=== PATIENT | male | born 1985 | race Caucasian/White ===

== ENCOUNTER 2022-10-21 13:34 | Outpatient (OUT) | payer OTHER, SELFPAY ==
--- NOTE | 2022-10-21 13:45 | CT_ITS ---
[address] [address] Patient Name: JUVENCIO SPARKS MRN: [id number] date: 1985 Sex: M Assigned Patient Location: CT Current Patient Location: CT Accession/Order Number: [id number] Exam Date: 10/21/2022 14:00 Report Date: 10/22/2022 07:28 At the request of: SASHA WILKES Procedure: CT chest w con EXAMINATION: CT chest w con HISTORY: Abnormal Chest CT R93.89, Rib Lesion M89.9 COMPARISON: 06/27/2022 TECHNIQUE: Multi-planar CT images were created with IV contrast. Axial, Coronal, and Sagittal images. Dose reduction techniques were achieved by using automated exposure control and/or adjustment of mA and/or kV according to patient size and/or use of iterative reconstruction technique. FINDINGS: LUNGS: No visible pulmonary disease. PLEURA: No mass, effusion, or pneumothorax. VASCULATURE: Normal postcontrast opacification of the central pulmonary arterial tree with no filling defects JEANNETTE: No mass or adenopathy. MEDIASTINUM: Soft tissue attenuation in the anterior mediastinum, residual thymic tissue is favored CARDIAC: No enlargement, pericardial thickening, or significant calcification. AORTA: No aneurysm or dissection. CHEST WALL: No mass or axillary adenopathy. BONES: Stable focal sclerosis left lateral seventh rib, axial image 66 LIMITED ABDOMEN: No suspicious findings. Limited images of the upper abdomen. OTHER: Negative. IMPRESSION: Interval resolution of parenchymal infiltrates Stable sclerotic lesion left lateral seventh rib with no cortical erosion or associated mass. I favor a benign lesion such as a enostosis or remote healed injury Electronically authenticated by: QUIANA GRANADOS Date: 10/22/2022 07:28
== END 2022-10-21 13:35 ==
LOC: CT 13:37
PROVIDERS: PCP Family Medicine; Visit Provider Family Medicine
DX: R93.89 Abnormal findings on diagnostic imaging of other specified body structures (principal); M89.9 Disorder of bone, unspecified
CPT/HCPCS: 71260; Q9967

== ENCOUNTER 2023-04-24 11:01 | Emergency (ER) | payer OTHER, SELFPAY ==
[2023-04-24] VITALS (16 sets, daily range): BP systolic 129; BP diastolic 97; PULSE 93–111; RESP 17–26; TEMP 36.7; O2SAT 96; BMI 30.4
--- NOTE | 2023-04-24 11:16 | XR_ITS ---
The [address] [address] Patient Name: JUVENCIO SPARKS MRN: [id number] date: 1985 Sex: M Assigned Patient Location: ER Current Patient Location: ER Accession/Order Number: [id number] Exam Date: 04/24/2023 11:25 Report Date: 04/24/2023 12:43 At the request of: PAYAM HOOD Procedure: XR chest 1V CLINICAL HISTORY: SOB, cough. EXAMINATION: Portable AP upright chest: 04/24/2023 at 1130 hours. COMPARISON: PA and lateral chest: 06/28/2022. FINDINGS: There are some artifacts from overlying monitoring leads. The visualized soft tissues are normal. The trachea is midline. The aorta demonstrates normal contour. The heart size remains normal. There are no focal infiltrates, pleural effusions, pulmonary edema or pneumothorax. XR/XR chest 1V IMPRESSION: No acute cardiopulmonary disease. Electronically authenticated by: KATHRYN MERRILL Date: 04/24/2023 12:43
--- NOTE | 2023-04-24 11:16 | ECG_ITS ---
The [facility] Test Date: 2023-04-24 Pat Name: JUVENCIO SPARKS Department: Room: - Gender: Male [employer]: : 1985 Requested By: SASHA WILKES Order Number: [id number] Reading MD: FRANCISCO STEARNS Measurements Intervals [place] Rate: 94 P: 47 NC: 110 QRS: -14 QRSD: 80 T: 26 QT: 314 QTc: 366 Interpretive Statements 1100 Sinus rhythm 2210 Short NC interval 4068 Nonspecific [place] abnormality 9150 abnormal ECG No previous ECG available for comparison Electronically Signed On 04-24-2023 16:57:07 EST by FRANCISCO STEARNS
--- NOTE | 2023-04-24 11:17 | ED_ITS ---
HPI - URI/Sore Throat General Chief Complaint: Upper Respiratory Infection Stated Complaint: SHORTNESS OF BREATH Time Seen by Provider: 04/24/23 11:06 Source: patient History of Present Illness HPI Narrative: 37-year-old male presents for a one-month history of trouble breathing. He was seen at an urgent care a week ago and at that time was put on what sounds like Augmentin and a steroid. He still has a few days of the Augmentin left but doesn't feel any better and he feels worse. He's been coughing a great deal. He reports that in June of this year he had pneumonia that showed on a CAT scan and ended up with a bronchoscopy. He felt worse whenever he was given an albuterol treatment and doesn't want another albuterol treatment. Related Data Home Medications Medication Instructions Recorded Confirmed amoxicillin 875 mg-potassium 1 tab PO Q12H 04/24/23 04/24/23 clavulanate 125 mg tablet fluticasone propionate 50 intranasal 04/24/23 mcg/actuation nasal spray,suspension prednisone 20 mg tablet 20 mg PO Q12H 04/24/23 04/24/23 Previous Rx's Medication Instructions Recorded doxycycline hyclate 100 mg capsule 100 mg PO BID 10 days #20 caps 04/24/23 prednisone 10 mg tablet See Rx Instructions .Route 04/24/23 .COMPLEX #30 tabs Allergies Allergy/AdvReac Type Severity Reaction Status Date / Time No Known Drug Allergies Allergy Verified 04/24/23 11:07 Review of Systems ROS Narrative A ten point review of systems is negative except as noted above. Exam Narrative Exam Narrative: Nurses note and vital signs reviewed and patient is not hypoxic. General: The patient appears well and in no apparent distress. Patient is resting comfortably on cart. Skin: Warm, dry, no pallor noted. There is no rash noted. Head: Normocephalic, atraumatic Eye: Normal conjunctiva, no drainage Ears, Nose, Mouth, and Throat: oral mucosa is moist. Nares patent. Cardiovascular: Regular Rate and Rhythm Respiratory: bilateral rhonchi present Back: non-tender GI: often nontender Musculoskeletal: The patient has no evidence of calf tenderness, no pitting edema, symmetrical pulses noted bilaterally Neurological: A&O, normal speech Psychiatric: Cooperative Constitutional Vital Signs, click to edit/add: Last Vital Signs Temp 98.1 F 04/24/23 11:03 Pulse 111 H 04/24/23 13:50 Resp 22 04/24/23 13:50 BP 129/97 H 04/24/23 11:03 Pulse Ox 96 04/24/23 11:03 O2 Del Method Room Air 04/24/23 11:03 Course Vital Signs Vital signs: Vital Signs Temperature 98.1 F 04/24/23 11:03 Pulse Rate 97 H 04/24/23 11:03 Respiratory Rate 18 04/24/23 11:03 Blood Pressure 129/97 H 04/24/23 11:03 Pulse Oximetry 96 04/24/23 11:03 Oxygen Delivery Method Room Air 04/24/23 11:03 Temperature 98.1 F 04/24/23 11:03 Pulse Rate 111 H 04/24/23 13:50 Respiratory Rate 22 04/24/23 13:50 Blood Pressure 129/97 H 04/24/23 11:03 Pulse Oximetry 96 04/24/23 11:03 Oxygen Delivery Method Room Air 04/24/23 11:03 MDM - URI/Sore Throat MDM Narrative Medical decision making narrative: extensive workup including CAT scan of the chest ears negative. He'll be discharged home and was prescribed doxycycline. Treatment diagnosis and follow- up were discussed with the patient. Differential Diagnosis Differential diagnosis: Likely upper respiratory infection, viral infection, bronchitis, influenza and other (Covid, pneumonia) Lab Data Attestation: I reviewed the patient's lab results. Labs: Lab Results 04/24/23 04/24/23 Range/Units 11:27 11:32 WBC 6.8 (4.0-11.0) 10^3/uL RBC 5.16 (4.70-6.10) 10^6/uL Hgb 16.8 (14.0-18.0) g/dL Hct 48.4 (42.0-54.0) % MCV 93.8 (80.0-94.0) fL MCH 32.6 (25.9-34.0) pg MCHC 34.7 (29.9-35.2) g/dL RDW 11.9 (11.0-15.0) % Plt Count 210 (150-450) 10^3/uL MPV 9.7 (9.5-13.5) fL Neut % (Auto) 62.8 (43.0-75.0) % Lymph % (Auto) 18.8 L (20.5-60.0) % [place] % (Auto) 9.9 (1.7-12.0) % Eos % (Auto) 6.4 (0.9-7.0) % Baso % (Auto) 0.9 (0.2-2.0) % Neut # (Auto) 4.2 (1.4-6.5) 10^3/uL Lymph # (Auto) 1.3 (1.2-3.8) 10^3/uL [place] # (Auto) 0.7 (0.3-0.8) 10^3/uL Eos # (Auto) 0.4 (0.0-0.7) 10^3/uL Baso # (Auto) 0.1 (0.0-0.1) 10^3/uL Abs Immat Gran (auto) 0.08 H (0.00-0.03) 10^3/uL Imm/Tot Granulo (auto) 1.2 H (0.0-0.5) % Sodium 139 (136-145) mmol/L Potassium 4.1 (3.5-5.1) mmol/L Chloride 102 (98-107) mmol/L Carbon Dioxide 28.3 (21.0-32.0) mmol/L Anion Gap 12.8 BUN 12.0 (7.0-18.0) mg/dL Creatinine 1.21 (0.70-1.30) mg/dL Est GFR ( Amer) >60 (>=60) Est GFR (Non-Af Amer) >60 (>=60) BUN/Creatinine Ratio 9.9 Glucose 98 (74-106) mg/dL Lactate 0.8 (0.4-2.0) mmol/L Calcium 8.5 (8.5-10.1) mg/dL SARS-CoV-2 (PCR) Negative (NEGATIVE) Influenza Type A Ag Negative Influenza Type B Ag Negative Imaging Data chest x-ray and CAT scan chest: Radiologist's impression: Procedure: CT chest w con EXAMINATION: CT chest w con, 04/24/2023 12:55 PM EST HISTORY: cough, sob, hx of bilateral pneumonia COMPARISON: 10/21/2022 TECHNIQUE: CT of the chest was performed following administration of IV contrast. Dose reduction techniques were achieved by using automated exposure control and/or adjustment of mA and/or kV according to patient size and/or use of iterative reconstruction technique. FINDINGS: Medical devices: None. Thyroid: Normal. Vasculature: Aorta and main pulmonary artery diameters are within normal range. Heart: Normal. No pericardial effusion. Mediastinum: Normal. Airways: Normal. Lung parenchyma and pleura: Normal. Lymph nodes: No supraclavicular, axillary, mediastinal, or hilar lymphadenopathy. Chest wall: Normal. Musculoskeletal: No acute findings Upper abdomen: No acute findings in the visualized upper abdomen. IMPRESSION: 1. No acute findings in the chest. Electronically authenticated by: BETSY MANUEL Date: 04/24/2023 13:51 Procedure: XR chest 1V CLINICAL HISTORY: SOB, cough. EXAMINATION: Portable AP upright chest: 04/24/2023 at 1130 hours. COMPARISON: PA and lateral chest: 06/28/2022. FINDINGS: There are some artifacts from overlying monitoring leads. The visualized soft tissues are normal. The trachea is midline. The aorta demonstrates normal contour. The heart size remains normal. There are no focal infiltrates, pleural effusions, pulmonary edema or pneumothorax. IMPRESSION: No acute cardiopulmonary disease. Electronically authenticated by: KATHRYN MERRILL Date: 04/24/2023 ECG Data Attestation: I personally reviewed and interpreted this ECG as follows: (EKG on my interpretation shows normal sinus rhythm without acute change) Discharge Plan Discharge Chief Complaint: Upper Respiratory Infection Clinical Impression: Upper respiratory infection Patient Disposition: Home, Self-Care Time of Disposition Decision: 14:04 Condition: Good Mode of Transportation: Private Vehicle Prescriptions / Home Meds: New prednisone 10 mg tablet See Rx Instructions .ROUTE .COMPLEX Qty: 30 0RF Rx Instructions: 4 by mouth daily for three days then 3 by mouth daily for three days then 2 by mouth daily for three days then 1 by mouth daily for three days doxycycline hyclate 100 mg capsule 100 mg PO BID 10 Days Qty: 20 0RF No Action amoxicillin-pot clavulanate 875-125 mg tablet 1 tab PO Q12H prednisone 20 mg tablet 20 mg PO Q12H fluticasone propionate 50 mcg/actuation spray,suspension INTRANASAL Instructions: Upper Respiratory Infection (ED) Stand Alone Forms: Portal Instructions Referrals: Christiano De La Cruz MD [Primary Care Provider] - 1 week
[2023-04-24] MEDS: METHYLPREDNISOLONE SOD SUCC PF 125 MG/2 ML VIAL IVP (11:39)
[2023-04-24 11:46] LABS: Basophils Absolute Auto 0.1 10^3/uL (0.0-0.1); Basophils Percent Auto 0.9 % (0.2-2.0); Eosinophils Absolute Auto 0.4 10^3/uL (0.0-0.7); Eosinophils Percent Auto 6.4 % (0.9-7.0); Hematocrit 48.4 % (42.0-54.0); Hemoglobin 16.8 g/dL (14.0-18.0); Immature Granulocytes Abs Auto 0.08 10^3/uL (0.00-0.03); Immature Granulocytes Pct Auto 1.2 % (0.0-0.5); Lymphocytes Absolute Auto 1.3 10^3/uL (1.2-3.8); Lymphocytes Percent Auto 18.8 % (20.5-60.0); Mean Corpuscular HGB Conc 34.7 g/dL (29.9-35.2); Mean Corpuscular Hemoglobin 32.6 pg (25.9-34.0); Mean Corpuscular Volume 93.8 fL (80.0-94.0); Mean Platelet Volume 9.7 fL (9.5-13.5); Monocytes Absolute Auto 0.7 10^3/uL (0.3-0.8); Monocytes Percent Auto 9.9 % (1.7-12.0); Neutrophils Absolute Auto 4.2 10^3/uL (1.4-6.5); Neutrophils Percent Auto 62.8 % (43.0-75.0); Platelet Count 210 10^3/uL (150-450); Red Blood Count 5.16 10^6/uL (4.70-6.10); Red Cell Distribution Width 11.9 % (11.0-15.0); White Blood Count 6.8 10^3/uL (4.0-11.0)
[2023-04-24 11:48] LABS: Anion Gap 12.8; BUN Creatinine Ratio 9.9; Calcium 8.5 mg/dL (8.5-10.1); Carbon Dioxide 28.3 mmol/L (21.0-32.0); Chloride 102 mmol/L (98-107); Estimated GFR (African America >60 (>=60); Estimated GFR (Non-African Ame >60 (>=60); Glucose 98 mg/dL (74-106); Potassium 4.1 mmol/L (3.5-5.1); Sodium 139 mmol/L (136-145)
[2023-04-24 11:54] LABS: Influenza Virus A Antigen Negative; Influenza Virus B Antigen Negative; Internal Control Within Normal Limits
[2023-04-24 11:55] LABS: SARS-CoV-2 Ag NEGATIVE (NEGATIVE)
--- NOTE | 2023-04-24 12:14 | CT_ITS ---
The [address] [address] Patient Name: JUVENCIO SPARKS MRN: [id number] date: 1985 Sex: M Assigned Patient Location: ER Current Patient Location: ER Accession/Order Number: [id number] Exam Date: 04/24/2023 12:55 Report Date: 04/24/2023 13:51 At the request of: PAYAM HOOD Procedure: CT chest w con EXAMINATION: CT chest w con, 04/24/2023 12:55 PM EST HISTORY: cough, sob, hx of bilateral pneumonia COMPARISON: 10/21/2022 TECHNIQUE: CT of the chest was performed following administration of IV contrast. Dose reduction techniques were achieved by using automated exposure control and/or adjustment of mA and/or kV according to patient size and/or use of iterative reconstruction technique. FINDINGS: Medical devices: None. Thyroid: Normal. Vasculature: Aorta and main pulmonary artery diameters are within normal range. Heart: Normal. No pericardial effusion. Mediastinum: Normal. Airways: Normal. Lung parenchyma and pleura: Normal. Lymph nodes: No supraclavicular, axillary, mediastinal, or hilar lymphadenopathy. Chest wall: Normal. Musculoskeletal: No acute findings Upper abdomen: No acute findings in the visualized upper abdomen. CT/CT chest w con IMPRESSION: 1. No acute findings in the chest. Electronically authenticated by: BETSY MANUEL Date: 04/24/2023 13:51
[2023-04-24 13:14] LABS: Lactate/Lactic Acid 0.8 mmol/L (0.4-2.0)
[2023-04-24 15:59] LABS: SARS-CoV-2 NAA NOT DETECTED (NOT DETECTE)
== END 2023-04-24 14:15 | disposition home or self-care (01) ==
PROVIDERS: Emergency Provider Emergency Medicine; PCP Family Medicine
DX: J06.9 Acute upper respiratory infection, unspecified (principal); Z79.899 Other long term (current) drug therapy; Z87.01 Personal history of pneumonia (recurrent); Z20.822 Contact with and (suspected) exposure to COVID-19
CPT/HCPCS: 36415; 71045; 71260; 80048; 83605; 85025; 87635; 87804; 87811; 93005; 96374; 99285; J2930; Q9967

== ENCOUNTER 2023-06-22 08:10 | Outpatient (OUT) | payer OTHER, SELFPAY ==
--- OUTSIDE RECORDS SUMMARY | 2023-06-22 08:15 | XMS_ITS | CCD ---
Author Name Unknown Address [facility] [address] [place] [address] Organization [facility] Care Team Providers Care Driller Operator Name Role Phone DioniJoseCharmaine Unavailable Peyton Stone Unavailable Carri Cano Unavailable Asaad, Imad Unavailable SAMSA ., LEWIS Procedure Practitioner Unavailab le IVIS ., LICO Attending Unavailable IVIS ., LICO Admitting Unavailable REQUEST, DR NONE LISTED Primary Care Unavailelgin GRANADOS, DR QUIANA Lawler Consulting Unavailable TATUM ULLOA Consulting Unavailable LEWIS RIVERA Consulting Unavailable TORITO LANCASTER Consulting Unavailable MAEVE HALL Consulting Unavailable SEGUNDO AMBRIZ Consulting UnavailRENARD Au Consulting Unavailable ZEESHAN TUCKER Consulting Unavailable SISTER, SANDI Consulting Unavailable IVIS ., LICO Consulting Unavailable IVIS II, KIMBERLI Consulting Unavailable Asaad, Imad Attending Unavailable Asaad, Imad Admitting Unavailable NO FAMILY, PHYSICIAN Primary Care Unavailable Christiano De La Cruz MD Primary Care Provider [phone] Medications Current Medications Medication Drug Class(es) Dates Sig (Normalized) Sig (Original) [id number] 200 actuat albuterol 0.09 mg/actuat metered dose inhaler (1 source) beta2-Adrenergic Agonist Start: 1 take 2 puff(s) by inhalation every four hours as needed Albuterol Sulfate HFA 108 (90 Base) MCG/ACT 2 puffs as needed Inhalation every 4 hrs Jan, Active amoxicillin 875 mg oral tablet (1 source) Penicillin-class Antibacterial Start: 1 take 1 tablet by mouth every twelve hours Amoxicillin 875 MG 1 tablet Orally every 12 hrs for 7 days Jan, Active methylPREDNISolone 4 mg oral tablet (1 source) Corticosteroid Start: methylPREDNISolone 4 MG as directed Orally Once a day for 6 days Jan, Active predniSONE 50 mg oral tablet (4 sources) Start: 4 End: 4 take 1 tablet by mouth in the morning predniSONE (Deltasone) 50 MG tablet Indications: Chronic bilateral low back pain with left-sided sciatica Take 1 tablet (50 mg) by mouth in the morning for 6 days. 6 tablet 0 06/21/2023 06/27/2023 Active Start: 06-26-2022 take 1 tablet by kalee th every twelve hours predniSONE 20 MG 1 tablet Orally 2 times a day for 5 day(s) Jun, Active tiZANidine 4 mg oral tablet (2 sources) Central alpha-2 Adrenergic Agonist Start: 06-21-2023 take 1 tablet by mouth every six hours for muscle spasms tiZANidine (Zanaflex) 4 MG tablet Indications: Chronic bilateral low back pain with left-sided sciatica Take 1 tablet (4 mg) by mouth every 6 (six) hours if needed for muscle spasms 30 tablet 0 06/21/2023 Active Problems Active Problems Problem Classification Problem Date Documented Da te Episodic/Chronic Anxiety disorders (4 sources) Mixed anxiety and depressive disorder; Translations: [Other specified anxiety disorders] Chronic Cardiac dysrhythmias (1 source) Palpitations; Translations: [PALPITATIONS] Onset: 07-07-2022 Episodic E Codes: Adverse effects of medical drugs (1 source) Adverse effect of antiasthmatics, initial encounter; Translations: [ADVERSE EFF ANTIASTHMATICS INIT ENC] Onset: 07-07-2022 Episodic Esophageal disorders (5 sources) Acid reflux; Translations: [Gastro-esophageal reflux disease without esophagitis] Onset: 07-07-2022 06-21-2023 Chronic Immunizations and screening for infectious disease (2 sources) Suspected clinical finding; Translations: [Contact with and (suspected) exposure to other viral communicable diseases] Episodic Mood disorders (4 sources) Recurrent major depressive episodes; Translations: [Major depressive disorder, recurrent, unspecified] Chronic Other bone disease and musculoskeletal deformities (3 sources) Finding of bone of thorax; Translations: [Disorder of bone, unspecified] Onset: 06-21-2023 06-21-2023 Episodic Other endocrine disorders (4 sources) Hypoglycemia; Translations: [Other hypoglycemia] Chronic Other gastrointestinal disorders (1 source) Heartburn; Translations: [Heartburn] Onset: 08-12-2022 Episodic Other injuries and conditions due to external causes (1 source) Other foreign object in other parts of respiratory tract causing asphyxiation, initial encounter; Translations: [OTH OBJ OTH RESP TRACT ASPHYX INIT] Onset: 07-07-2022 Episodic Other nutritional; endocrine; and metabolic disorders (2 sources) Body mass index 30+ - obesity; Translations: [Obesity, unspecified] Onset: 06-21-2023 06-21-2023 Chronic Other screening for suspected conditions (not mental disorders or infectious disease) (3 sources) CT of chest abnormal; Translations: [Abnormal findings on diagnostic imaging of other specified body structures] Onset: 06-21-2023 06-21-2023 Chronic Other upper respiratory disease (1 source) Chronic rhinitis; Translations: [CHRONIC RHINITIS] Onset: 07-07-2022 Chronic Other upper respiratory infections (2 sources) Acute sinusitis, unspecified; Translations: [Acute upper respiratory infection, unspecified] Onset: 07-07-2022 Episodic Pneumonia (except that caused by tuberculosis or sexually transmitted disease) (4 sources) Pneumonia, unspecified organism; Translations: [Human metapneumovirus pneumonia] Onset: 06-28-2022 Episodic Residual codes; unclassified (4 sources) Insomnia; Translations: [Insomnia, unspecified] Episodic Respiratory failure; insufficiency; arrest (adult) (1 source) Acute respiratory failure with hypoxia; Translations: [ACUTE RESPIRATORY FAIL W/HYPOXIA] Onset: 07-07-2022 Episodic Septicemia (except in labor) (3 sources) Other specified sepsis; Translations: [Sepsis, unspecified organism] Onset: 07-07-2022 Episodic Spondylosis; intervertebral disc disorders; other back problems (4 sources) Chronic low back pain; Translations: [Lumbago with sciatica, left side] Onset: 06-21-2023 06-21-2023 Episodic Unclassified (1 source) CONTACT W/AND (SUSP) EXPOS COVID-19; Translations: [CONTACT W/AND (SUSP) EXPOS COVID-19] Onset: 07-07-2022 Past or Other Problems Problem Classification Problem Date Documented Da te Episodic/Chronic Chronic obstructive pulmonary disease and bronchiectasis (1 source) Bronchitis, not specified as acute or chronic; Translations: [Bronchitis J40] Onset: 02-03-2021 Resolved: 02-03-2021 Episodic Fever of unknown origin (1 source) Fever, unspecified Onset: 11-13-2021 Resolved: 11-13-2021 Episodic Otitis media and related conditions (1 source) Otitis media, unspecified, bilateral; Translations: [Bilateral acute otitis media H66.93] Onset: 02-03-2021 Resolved: 02-03-2021 Episodic Viral infection (1 source) COVID-19 Onset: 11-13-2021 Resolved: 11-13-2021 Results Test Name Value Interpretation Reference Range Facility ACID FAST SMEAR AND CXon Acid Fast Culture Negative Normal [facility] Comment on above: Result Comment: No a monica fast bacilli isolated after 6 weeks. Performed By: #### D DIM #### [facility] [address] [address] [address] Dominic Dunn Acid Fast Smear Negative Normal [facility] Comment on above: Performed By: #### D DIM #### [facility] [address] [address] [address] Dominic Dunn [employer] Specimen Processing Concentration Normal [facility] Comment on above: Performed By: #### D DIM #### [facility] [address] [address] [address] Dominic Dunn FUNGAL CULTUREon 07-28-2022 Fungus (Mycology) Culture Final report [facility] Comment on above: Performed By: #### L ACT #### [facility] [address] [address] [address] Dominic Dunn Fungus Stain Final report Normal [facility] Comment on above: Performed By: #### L ACT #### [facility] [address] [place] [address] Dr. Dominic Dunn Result 1 Comment Normal [facility] Comment on above: Result Comment: KRISTI/ Calcofluor preparation: no fungus observed. Performed By: #### L ACT #### [facility] [address] [address] [address] Dominic Dunn Result Comment: No y east or mold isolated after 4 weeks. CBC AUTO DIFFon 07-01-2022 BASO # 0.1 103/ul Normal 0.0-0.1 [facility] Comment on above: Performed By: #### C BC #### [facility] [address] [address] [address] Dominic Dunn Basophils/100 WBC (Bld) 0.7 % Normal 0.2-2.0 [facility] Comment on above: Performed By: #### C BC #### [facility] [address] [address] [address] Dominic Dunn EO # 0.0 103/ul Normal 0.0-0.7 [facility] Comment on above: Performed By: #### C BC #### [facility] [address] [address] [address] Dominic Dunn Eosinophils/100 WBC (Bld) 0.3 % Critically low 0.9-7.0 [facility] Comment on above: Performed By: #### C BC #### [facility] [address] [address] [address] Dominic Dunn Erythrocyte distribution width (RBC) [Ratio] 12.2 % Normal 11.0-15.0 [facility] Comment on above: Performed By: #### C BC #### [facility] [address] [address] [address] Dominic Dunn Hematocrit (Bld) [Volume fraction] 40.0 % Critically low 42.0-54.0 [facility] Comment on above: Performed By: #### C BC #### [facility] [address] [address] [address] Dominic Dunn Hemoglobin (Bld) [Mass/Vol] 13.6 g/dL Critically low 14.0-18.0 [facility] Comment on above: Performed By: #### C BC #### [facility] [address] [address] [address] Dominic Dunn IG # 0.17 10e3/ul Critically high 0.00-0.03 [facility] Comment on above: Performed By: #### C BC #### [facility] [address] [address] [address] Dominic Dunn IG % 2.3 % Critically high 0.0-0.5 [facility] Comment on above: Performed By: #### C BC #### [facility] [address] [address] [address] Dominic Dunn LYMPH # 1.4 103/ul Normal 1.2-3.8 [facility] Comment on above: Performed By: #### C BC #### [facility] [address] [place] [address] Dr. Dominic Dunn Lymphocytes/100 WBC (Bld) 18.3 % Critically low 20.5-60.0 [facility] Comment on above: Performed By: #### C BC #### [facility] [address] [place] [address] Dr. Dominic Dunn MANUAL DIFF REQ NO Normal [facility] Comment on above: Performed By: #### C BC #### [facility] [address] [place] [address] Dr. Dominic Dunn MCH (RBC) [Entitic mass] 32.4 pg Normal 25.9-34.0 [facility] Comment on above: Performed By: #### C BC #### [facility] [address] [place] [address] Dr. Dominic Dunn MCHC (RBC) [Mass/Vol] 34.0 g/dL Normal 29.9-35.2 [facility] Comment on above: Performed By: #### C BC #### [facility] [address] [place] [address] Dr. Dominic Dunn MCV (RBC) [Entitic vol] 95.2 fL Critically high 80.0-94.0 [facility] Comment on above: Performed By: #### C BC #### [facility] [address] [place] [address] Dr. Dominic Dunn MONO # 0.6 103/ul Normal 0.3-0.8 [facility] Comment on above: Performed By: #### C BC #### [facility] [address] [address] [address] Dominic Dunn Monocytes/100 WBC (Bld) 8.4 % Normal 1.7-12.0 [facility] Comment on above: Performed By: #### C BC #### [facility] [address] [address] [address] Dominic Dunn NEUT # 5.3 103/ul Normal 1.4-6.5 [facility] Comment on above: Performed By: #### C BC #### [facility] [address] [place] [address] Dr. Dominic Dunn Neutrophils/100 WBC (Bld) 70.0 % Normal 43.0-75.0 [facility] Comment on above: Performed By: #### C BC #### [facility] [address] [place] [address] Dr. Dominic Dunn Platelet mean volume (Bld) [Entitic vol] 10.2 fL Normal 9.5-13.5 [facility] Comment on above: Performed By: #### C BC #### [facility] [address] [place] [address] Dr. Dominic Dunn PLT 223 103/ul Normal 150-450 [facility] Comment on above: Performed By: #### C BC #### [facility] [address] [place] [address] Dr. Dominic Dunn RBC 4.20 106/ul Critically low 4.70-6.10 [facility] Comment on above: Performed By: #### C BC #### [facility] [address] [place] [address] Dr. Dominic Dunn WBC 7.5 103/ul Normal 4.0-11.0 [facility] Comment on above: Performed By: #### C BC #### [facility] [address] [place] [address] Dr. Dominic Dunn PROF 14(COMP METB)on 023 Albumin [Mass/Vol] 2.1 g/dL Critically low 3.4-5.0 [facility] Comment on above: Performed By: #### C MREP #### [facility] [address] [address] [address] Dominic Dunn Albumin/Globulin [Mass ratio] 0.8 {ratio} Normal [facility] Comment on above: Performed By: #### C MREP #### [facility] [address] [address] [address] Dominic Dunn ALP [Catalytic activity/Vol] 51 U/L Normal 46-116 [facility] Comment on above: Performed By: #### C MREP #### [facility] [address] [address] [address] Dominic Dunn ALT [Catalytic activity/Vol] 27 U/L Normal 16-63 [facility] Comment on above: Performed By: #### C MREP #### [facility] [address] [place] [address] Dr. Dominic Dunn Anion gap [Moles/Vol] 8.3 mmol/L Normal [facility] Comment on above: Performed By: #### C MREP #### [facility] [address] [place] [address] Dr. Dominic Dunn AST [Catalytic activity/Vol] 14 U/L Critically low 15-37 [facility] Comment on above: Performed By: #### C MREP #### [facility] [address] [address] [address] Dominic Dunn Bilirubin [Mass/Vol] 0.4 mg/dL Normal 0.2-1.0 [facility] Comment on above: Performed By: #### C MREP #### [facility] [address] [place] [address] Dr. Dominic Dunn Calcium [Mass/Vol] 7.5 mg/dL Critically low 8.5-10.1 Th [facility] Comment on above: Performed By: #### C MREP #### [facility] [address] [place] [address] Dr. Dominic Dunn Chloride [Moles/Vol] 108 mmol/L Critically high 98-107 [facility] Comment on above: Performed By: #### C MREP #### [facility] [address] [address] [address] Dominic Dunn CO2 [Moles/Vol] 29.2 mmol/L Normal 21.0-32.0 [facility] Comment on above: Performed By: #### C MREP #### [facility] [address] [address] [address] Dominic Dunn Creatinine [Mass/Vol] 0.87 mg/dL Normal 0.70-1.30 [facility] Comment on above: Performed By: #### C MREP #### [facility] [address] [address] [address] Dominic Dunn EGFR-AF ITALIAN >60 Normal >=60 [facility] Comment on above: Performed By: #### C MREP #### [facility] [address] [place] [address] Dr. Dominic Dunn EGFR-NON AF ITALIAN >60 Normal >=60 [facility] Comment on above: Performed By: #### C MREP #### [facility] [address] [place] [address] Dr. Dominic Dunn Globulin (S) [Mass/Vol] 2.7 g/dL Normal [facility] Comment on above: Performed By: #### C MREP #### [facility] [address] [place] [address] Dr. Dominic Dunn Glucose [Mass/Vol] 97 mg/dL Normal 74-106 [facility] Comment on above: Performed By: #### C MREP #### [facility] [address] [address] [address] Dominic Dunn Potassium [Moles/Vol] 3.5 mmol/L Normal 3.5-5.1 [facility] Comment on above: Performed By: #### C MREP #### [facility] [address] [place] [address] Dr. Dominic Dunn Protein [Mass/Vol] 4.8 g/dL Critically low 6.4-8.2 Th [facility] Comment on above: Performed By: #### C MREP #### [facility] [address] [place] [address] Dr. Dominic Dunn Sodium [Moles/Vol] 142 mmol/L Normal 136-145 [facility] Comment on above: Performed By: #### C MREP #### [facility] [address] [place] [address] Dr. Dominic Dunn Urea nitrogen [Mass/Vol] 13.0 mg/dL Normal 7.0-18.0 [facility] Comment on above: Performed By: #### C MREP #### [facility] [address] [place] [address] Dr. Dominic Dunn Urea nitrogen/Creatinine [Mass ratio] 14.9 mg/mg Normal [facility] Comment on above: Performed By: #### C MREP #### [facility] [address] [place] [address] Dr. Dominic Dunn CBC W MANUAL DIFFon 06-30-19 ATYPICAL LYMPH # Normal [facility] Comment on above: Performed By: #### L ACT #### [facility] [address] [place] [address] Dr. Dominic Dunn ATYPICAL LYMPH % Normal [facility] Comment on above: Performed By: #### L ACT #### [facility] [address] [place] [address] Dr. Dominic Dunn BAND # 0.0 103/ul Normal 0.0-0.3 [facility] Comment on above: Performed By: #### L ACT #### [facility] [address] [place] [address] Dr. Dominic Dunn BAND % 0 % Normal 0-5 [facility] Comment on above: Performed By: #### L ACT #### [facility] [address] [place] [address] Dr. Dominic Dunn BASOM # 0.00 103/ul Normal 0.00-0.10 [facility] Comment on above: Performed By: #### L ACT #### [facility] [address] [place] [address] Dr. Dominic Dunn BASOM % 0.0 % Critically low 0.2-2.0 [facility] Comment on above: Performed By: #### L ACT #### [facility] [address] [address] [address] Dominic Dunn BLAST # Normal [facility] Comment on above: Performed By: #### L ACT #### [facility] [address] [address] [address] Dominic Dunn BLAST % Normal [facility] Comment on above: Performed By: #### L ACT #### [facility] [address] [address] [address] Dominic Dunn CORRECTED WBC Normal 4.0-11.0 [facility] Comment on above: Performed By: #### L ACT #### [facility] [address] [address] [address] Dominic Dunn EOS # 0.00 103/ul Normal 0.00-0.70 [facility] Comment on above: Performed By: #### L ACT #### [facility] [address] [place] [address] Dr. Dominic Dunn EOS% 0.0 % Critically low 0.9-7.[address] [facility] Comment on above: Performed By: #### L ACT #### [facility] [address] [place] [address] Dr. Dominic Dunn HCT 38.0 % Critically low 42.0-54.[address] [facility] Comment on above: Performed By: #### L ACT #### [facility] [address] [place] [address] Dr. Dominic Dunn HGB 13.2 g/dl Critically low 14.0-18.[address] [facility] Comment on above: Performed By: #### L ACT #### [facility] [address] [place] [address] Dr. Dominic Dunn LYMPHM # 0.49 103/ul Critically low 1.20-3.80 [facility] Comment on above: Performed By: #### L ACT #### [facility] [address] [address] [address] Dominic Dunn LYMPHM% 4.0 % Critically low 20.5-60.[address] [facility] Comment on above: Performed By: #### L ACT #### [facility] [address] [place] [address] Dr. Dominic Dunn MCH 32.8 pg Normal 25.9-34.0 [facility] Comment on above: Performed By: #### L ACT #### [facility] [address] [place] [address] Dr. Dominic Dunn MCHC 34.7 g/dl Normal 29.9-35.2 [facility] Comment on above: Performed By: #### L ACT #### [facility] [address] [place] [address] Dr. Dominic Dunn MCV 94.5 fL Critically high 80.0-94.0 [facility] Comment on above: Performed By: #### L ACT #### [facility] [address] [place] [address] Dr. Dominic Dunn METAMYELOCYTE # Normal [facility] Comment on above: Performed By: #### L ACT #### [facility] [address] [place] [address] Dr. Dominic Dunn METAMYELOCYTE % Normal [facility] Comment on above: Performed By: #### L ACT #### [facility] [address] [place] [address] Dr. Dominic Dunn MONOM# 0.49 103/ul Normal 0.30-0.80 [facility] Comment on above: Performed By: #### L ACT #### [facility] [address] [place] [address] Dr. Dominic Dunn MONOM% 4.0 % Normal 1.7-12.0 [facility] Comment on above: Performed By: #### L ACT #### [facility] [address] [place] [address] Dr. Dominic Dunn MPV 10.6 fL Normal 9.5-13.5 [facility] Comment on above: Performed By: #### L ACT #### [facility] [address] [place] [address] Dr. Dominic Dunn MYELOCYTE # Normal [facility] Comment on above: Performed By: #### L ACT #### [facility] [address] [address] [address] Dominic Dunn MYELOCYTE % Normal [facility] Comment on above: Performed By: #### L ACT #### [facility] [address] [address] [address] Dominic Dunn NRBC Normal [facility] Comment on above: Performed By: #### L ACT #### [facility] [address] [address] [address] Dominic Dunn PLT 194 103/ul Normal 150-450 [facility] Comment on above: Performed By: #### L ACT #### [facility] [address] [address] [address] Dominic Dunn RBC 4.02 106/ul Critically low 4.70-6.10 [facility] Comment on above: Performed By: #### L ACT #### [facility] [address] [address] [address] Dominic Dunn RDW 12.2 % Normal 11.0-15.0 [facility] Comment on above: Performed By: #### L ACT #### [facility] [address] [address] [address] Dominic Dunn SEG # 11.32 103/ul Critically high 1.40-6.50 [facility] Comment on above: Performed By: #### L ACT #### [facility] [address] [address] [address] Dominic Dunn SEG % 92.0 % Critically high 43.0-75.0 [facility] Comment on above: Performed By: #### L ACT #### [facility] [address] [address] [address] Dominic Dunn WBC 12.3 103/ul Critically high 4.0-11.0 [facility] Comment on above: Performed By: #### L ACT #### [facility] [address] [address] [address] Dominic Dunn PROF 14(COMP METB)on 023 Albumin [Mass/Vol] 2.3 g/dL Critically low 3.4-5.0 Th [facility] Comment on above: Performed By: #### C MREP #### [facility] [address] [address] [address] Dominic Dunn Albumin/Globulin [Mass ratio] 0.8 {ratio} Normal [facility] Comment on above: Performed By: #### C MREP #### [facility] [address] [address] [address] Dominic Dunn ALP [Catalytic activity/Vol] 53 U/L Normal 46-116 [facility] Comment on above: Performed By: #### C MREP #### [facility] [address] [address] [address] Dominic Dunn ALT [Catalytic activity/Vol] 22 U/L Normal 16-63 [facility] Comment on above: Performed By: #### C MREP #### [facility] [address] [place] [address] Dr. Dominic Dunn Anion gap [Moles/Vol] 8.2 mmol/L Normal [facility] Comment on above: Performed By: #### C MREP #### [facility] [address] [place] [address] Dr. Dominic Dunn AST [Catalytic activity/Vol] 18 U/L Normal 15-37 [facility] Comment on above: Performed By: #### C MREP #### [facility] [address] [place] [address] Dr. Dominic Dunn Bilirubin [Mass/Vol] 0.4 mg/dL Normal 0.2-1.0 [facility] Comment on above: Performed By: #### C MREP #### [facility] [address] [place] [address] Dr. Dominic Dunn Calcium [Mass/Vol] 7.5 mg/dL Critically low 8.5-10.1 Th [facility] Comment on above: Performed By: #### C MREP #### [facility] [address] [place] [address] Dr. Dominic Dunn Chloride [Moles/Vol] 107 mmol/L Normal 98-107 [facility] Comment on above: Performed By: #### C MREP #### [facility] [address] [address] [address] Dominic Dunn CO2 [Moles/Vol] 29.3 mmol/L Normal 21.0-32.0 [facility] Comment on above: Performed By: #### C MREP #### [facility] [address] [address] [address] Dominic Dunn Creatinine [Mass/Vol] 0.86 mg/dL Normal 0.70-1.30 [facility] Comment on above: Performed By: #### C MREP #### [facility] [address] [address] [address] Dominic Dunn EGFR-AF ITALIAN >60 Normal >=60 [facility] Comment on above: Performed By: #### C MREP #### [facility] [address] [place] [address] Dr. Dominic Dunn EGFR-NON AF ITALIAN >60 Normal >=60 [facility] Comment on above: Performed By: #### C MREP #### [facility] [address] [place] [address] Dr. Domniic Dunn Globulin (S) [Mass/Vol] 2.8 g/dL Normal [facility] Comment on above: Performed By: #### C MREP #### [facility] [address] [place] [address] Dr. Dominic Dunn Glucose [Mass/Vol] 133 mg/dL Critically high 74-106 T [facility] Comment on above: Performed By: #### C MREP #### [facility] [address] [place] [address] Dr. Dominic Dunn Potassium [Moles/Vol] 3.5 mmol/L Normal 3.5-5.1 [facility] Comment on above: Performed By: #### C MREP #### [facility] [address] [place] [address] Dr. Dominic Dunn Protein [Mass/Vol] 5.1 g/dL Critically low 6.4-8.2 Th [facility] Comment on above: Performed By: #### C MREP #### [facility] [address] [address] [address] Dominic Dunn Sodium [Moles/Vol] 141 mmol/L Normal 136-145 [facility] Comment on above: Performed By: #### C MREP #### [facility] [address] [place] [address] Dr. Dominic Dunn Urea nitrogen [Mass/Vol] 11.0 mg/dL Normal 7.0-18.0 [facility] Comment on above: Performed By: #### C MREP #### [facility] [address] [place] [address] Dr. Dominic Dunn Urea nitrogen/Creatinine [Mass ratio] 12.8 mg/mg Normal [facility] Comment on above: Performed By: #### C MREP #### [facility] [address] [place] [address] Dr. Dominic Dunn CBC W MANUAL DIFFon 06-29-19 ATYPICAL LYMPH # 0.13 103/ul Normal [facility] Comment on above: Performed By: #### D DIM #### [facility] [address] [place] [address] Dr. Dominic Dunn ATYPICAL LYMPH % 1 % Normal [facility] Comment on above: Performed By: #### D DIM #### [facility] [address] [place] [address] Dr. Dominic Dunn BAND # 0.0 103/ul Normal 0.0-0.3 [facility] Comment on above: Performed By: #### D DIM #### [facility] [address] [place] [address] Dr. Dominic Dunn BAND % 0 % Normal 0-5 [facility] Comment on above: Performed By: #### D DIM #### [facility] [address] [place] [address] Dr. Dominic Dunn BASOM # 0.00 103/ul Normal 0.00-0.10 [facility] Comment on above: Performed By: #### D DIM #### [facility] [address] [place] [address] Dr. Dominic Dunn BASOM % 0.0 % Critically low 0.2-2.0 [facility] Comment on above: Performed By: #### D DIM #### [facility] [address] [address] [address] Dominic Dunn BLAST # Normal [facility] Comment on above: Performed By: #### D DIM #### [facility] [address] [address] [address] Dominic Dunn BLAST % Normal [facility] Comment on above: Performed By: #### D DIM #### [facility] [address] [place] [address] Dr. Doimnic Dunn CORRECTED WBC Normal 4.0-11.0 [facility] Comment on above: Performed By: #### D DIM #### [facility] [address] [place] [address] Dr. Dominic Dunn EOS # 0.00 103/ul Normal 0.00-0.70 [facility] Comment on above: Performed By: #### D DIM #### [facility] [address] [place] [address] Dr. Dominic Dunn EOS% 0.0 % Critically low 0.9-7.[address] [facility] Comment on above: Performed By: #### D DIM #### [facility] [address] [place] [address] Dr. Domiinc Dunn HCT 36.7 % Critically low 42.0-54.[address] [facility] Comment on above: Performed By: #### D DIM #### [facility] [address] [place] [address] Dr. Dominic Dunn HGB 12.7 g/dl Critically low 14.0-18.[address] [facility] Comment on above: Performed By: #### D DIM #### [facility] [address] [place] [address] Dr. Dominic Dunn LYMPHM # 0.26 103/ul Critically low 1.20-3.80 [facility] Comment on above: Performed By: #### D DIM #### [facility] [address] [place] [address] Dr. Dominic Dunn LYMPHM% 2.0 % Critically low 20.5-60.[address] [facility] Comment on above: Performed By: #### D DIM #### [facility] [address] [place] [address] Dr. Dominic Dunn MCH 32.6 pg Normal 25.9-34.0 [facility] Comment on above: Performed By: #### D DIM #### [facility] [address] [place] [address] Dr. Dominic Dunn MCHC 34.6 g/dl Normal 29.9-35.2 [facility] Comment on above: Performed By: #### D DIM #### [facility] [address] [place] [address] Dr. Dominic Dunn MCV 94.3 fL Critically high 80.0-94.0 [facility] Comment on above: Performed By: #### D DIM #### [facility] [address] [place] [address] Dr. Dominic Dunn METAMYELOCYTE # Normal [facility] Comment on above: Performed By: #### D DIM #### [facility] [address] [place] [address] Dr. Dominic Dunn METAMYELOCYTE % Normal [facility] Comment on above: Performed By: #### D DIM #### [facility] [address] [place] [address] Dr. Dominic Dunn MONOM# 0.13 103/ul Critically low 0.30-0.80 [facility] Comment on above: Performed By: #### D DIM #### [facility] [address] [place] [address] Dr. Dominic Dunn MONOM% 1.0 % Critically low 1.7-12.0 [facility] Comment on above: Performed By: #### D DIM #### [facility] [address] [place] [address] Dr. Dominic Dunn MPV 10.3 fL Normal 9.5-13.5 [facility] Comment on above: Performed By: #### D DIM #### [facility] [address] [place] [address] Dr. Dominic Dunn MYELOCYTE # Normal [facility] Comment on above: Performed By: #### D DIM #### [facility] [address] [address] [address] Dominic Dunn MYELOCYTE % Normal [facility] Comment on above: Performed By: #### D DIM #### [facility] [address] [id number] Dominic Dunn NRBC Normal [facility] Comment on above: Performed By: #### D DIM #### [facility] [address] [address] [address] Dominic Dunn PLT 167 103/ul Normal 150-450 [facility] Comment on above: Performed By: #### D DIM #### [facility] [address] [address] [address] Dominic Dunn RBC 3.89 106/ul Critically low 4.70-6.10 [facility] Comment on above: Performed By: #### D DIM #### [facility] [address] [address] [address] Dominic Dunn RDW 12.4 % Normal 11.0-15.0 [facility] Comment on above: Performed By: #### D DIM #### [facility] [address] [address] [address] Dominic Dunn SEG # 12.38 103/ul Critically high 1.40-6.50 [facility] Comment on above: Performed By: #### D DIM #### [facility] [address] [id number] Dominic Dunn SEG % 96.0 % Critically high 43.0-75.0 [facility] Comment on above: Performed By: #### D DIM #### [facility] [id number] Dominic Dunn WBC 12.9 103/ul Critically high 4.0-11.0 [facility] Comment on above: Performed By: #### D DIM #### [facility] [address] [address] [address] Dominic Dunn CULTURE OTHERon 02-21-2023 CULTURE OTHER Culture Observations: NORMAL RESPIRATORY DUSTIN. Normal [facility] Comment on above: Performed By: #### O THCX #### [facility] [address] [address] [address] Dominic Dunn CYTOLOGYon 06-29-2022 SENT TO REF LAB 06/30/22 Normal [facility] Comment on above: Performed By: #### C YTO #### [facility] [address] [address] [address] Dominic Dunn ECHOCARDIO M/2D COMPLETEon 0 06-29-2022 ECHOCARDIO M/2D COMPLETE Patient: CHRIS SPARKS Exam Date: 06/29/2022 : 1985 Gender:M Ordering : LICO LANGSTON . Admission #: [id number] Family : Order #: [id number] CLICK HERE TO VIEW EXAM ECHOCARDIOGRAM REPORT PROCEDURE: CARDIO PULMONARY ECHOCARDIO M/2D COMP INDICATIONS: Sepsis, metapneumovirus, hypoxia COMPARISON: None. DESCRIPTION: COMPLETE ECHOCARDIOGRAM Real-time transthoracic echocardiography with 2D, M-mode, spectral and color flow Doppler performed. QUALITY: Technical quality was good. LEFT VENTRICLE: Normal chamber size. Normal left ventricular wall thickness. Systolic function is normal. LV EF: Normal left ventricular ejection fraction, (55%). DIASTOLIC: Normal diastolic function. ATRIAL SEPTUM: Visually appears intact. LEFT ATRIUM: Normal chamber size. RIGHT ATRIUM: Normal chamber size. RIGHT VENTRICLE: Normal chamber size. Normal right ventricular systolic function. TRICUSPID VALVE: Normal mobility and thickness. No stenosis with no regurgitation. MITRAL VALVE: Normal mobility and thickness. No evidence of mitral valve stenosis. There is no mitral annular calcification. Trivial mitral regurgitation. AORTIC VALVE: Normal trileaflet appearance. No visible sclerosis. Normal leaflet mobility. No evidence of aortic valve stenosis. Trivial aortic regurgitation. AORTIC ROOT: Normal diameter and appearance. PULMONIC VALVE: Normal thickness and mobility. No stenosis. Trivial regurgitation. PERICARDIUM: No evidence of pericardial effusion. IVC: Collapses with inspirations. PLEURA: CONCLUSION: 1. Normal ventricular function. LVEF is 55%. 2. No significant valvular dysfunction. 3. No pericardial effusion. Adult Echocardiography Procedure Report Left Ventricle LVEDD (3.7 - 5.6 cm): 5.23 cm LVESD (2.2 - 4.0 cm): 3.22 cm LVIVS thickness (0.6 - 1.2 cm): 0.93 cm LVPW thickness (0.5 - 1.0 cm): 0.60 cm e': 0.17 m/s E - e': 5.97 LVOT Max Gradient: 3.44 mm[Hg] Peak Velocity (LVOT): 0.93 m/s LVOT Diameter 2.28 cm Left Ventricular Ejection Fraction: 55 % Left Atrium LA Volume Index (2D A2C): 68.68 ml, 68.68 ml Left Atrium Systolic Dimension: 3.96 cm Mitral Valve MV E to A Ratio: 2.74 Mitral Valve A-Wave Peak Velocity: 0.38 m/s Mitral Valve E-Wave Peak Velocity: 1.04 m/s Right Ventricle Aorta AO Root Diam: 3.17 cm Aortic Valve AoV Area (Peak Matias): 2.77 cm2, 2.77 cm2 Peak Velocity(Antegrade Flow): 1.37 m/s Peak Gradient(Antegrade Flow): 7.48 mm[Hg] Tricuspid Valve Peak Velocity: 0.65 m/s Pulmonic Valve Peak Velocity: 0.96 m/s, 1.08 m/s Peak Gradient: 3.67 mm[Hg], 4.64 mm[Hg] Right Atrium Right Atrium Systolic Pressure: 60.59 ml, 60.59 ml Dictated by: Derian Grijalva M.D. on 06/29/2022 at 16:34 Approved by: Derian Grijalva M.D. on 06/29/2022 at 16:36 Normal [facility] GRAM STAINon 06-29-2022 COMMENTS NO ORGANISMS OBSERVED Normal [facility] Comment on above: Performed By: #### C MREP #### [facility] [address] [place] [address] Dr. Dominic Dunn DIPHTHEROIDS Normal [facility] Comment on above: Performed By: #### C MREP #### [facility] [address] [address] [address] Dominic Dunn EPITHELIALS Normal [facility] Comment on above: Performed By: #### C MREP #### [facility] [address] [place] [address] Dr. Dominic Dunn FUNGAL ELEMENTS Normal [facility] Comment on above: Performed By: #### C MREP #### [facility] [address] [address] [address] Dominic Dunn GRAM NEG BACILLI Normal [facility] Comment on above: Performed By: #### C MREP #### [facility] [address] [address] [address] Dominic NICHOLE NEG DIPPLOCOCCI Normal [facility] Comment on above: Performed By: #### C MREP #### [facility] [address] [address] [address] Dominic Dunn GRAM POS BACILLI [facility] Comment on above: Performed By: #### C MREP #### [facility] [address] [address] [address] Dominic Dunn GRAM POSITIVE COCCI Normal [facility] Comment on above: Performed By: #### C MREP #### [facility] [address] [address] [address] Dominic Dunn GRAM STAIN SOURCE Rt Lower Lobe Lavage [facility] Comment on above: Performed By: #### C MREP #### [facility] [address] [address] [address] Dominic Dunn GS_DIPTH [facility] Comment on above: Performed By: #### C MREP #### [facility] [address] [address] [address] Dominic Dunn WBC MANY Normal [facility] Comment on above: Performed By: #### C MREP #### [facility] [address] [address] [address] Dominic Dunn PROF 14(COMP METB)on 023 Albumin [Mass/Vol] 2.3 g/dL Critically low 3.4-5.0 Th [facility] Comment on above: Performed By: #### D DIM #### [facility] [address] [address] [address] Dominic Dunn Albumin/Globulin [Mass ratio] 0.8 {ratio} [facility] Comment on above: Performed By: #### D DIM #### [facility] [address] [address] [address] Dominic Dunn ALP [Catalytic activity/Vol] 49 U/L Normal 46-116 [facility] Comment on above: Performed By: #### D DIM #### [facility] [address] [address] [address] Dominic Dunn ALT [Catalytic activity/Vol] 20 U/L Normal 16-63 [facility] Comment on above: Performed By: #### D DIM #### [facility] [address] [place] [address] Dr. Dominic Dunn Anion gap [Moles/Vol] 11.5 mmol/L Normal [facility] Comment on above: Performed By: #### D DIM #### [facility] [address] [place] [address] Dr. Dominic Dunn AST [Catalytic activity/Vol] 18 U/L Normal 15-37 [facility] Comment on above: Performed By: #### D DIM #### [facility] [address] [place] [address] Dr. Dominic Dunn Bilirubin [Mass/Vol] 0.4 mg/dL Normal 0.2-1.0 [facility] Comment on above: Performed By: #### D DIM #### [facility] [address] [place] [address] Dr. Dominic Dunn Calcium [Mass/Vol] 7.5 mg/dL Critically low 8.5-10.1 Th [facility] Comment on above: Performed By: #### D DIM #### [facility] [address] [place] [address] Dr. Dominic Dunn Chloride [Moles/Vol] 108 mmol/L Critically high 98-107 [facility] Comment on above: Performed By: #### D DIM #### [facility] [address] [place] [address] Dr. Dominic Dunn CO2 [Moles/Vol] 26.8 mmol/L Normal 21.0-32.0 [facility] Comment on above: Performed By: #### D DIM #### [facility] [address] [place] [address] Dr. Dominic Dunn Creatinine [Mass/Vol] 0.88 mg/dL Normal 0.70-1.30 [facility] Comment on above: Performed By: #### D DIM #### [facility] [address] [place] [address] Dr. Dominic Dunn EGFR-AF ITALIAN >60 Normal >=60 [facility] Comment on above: Performed By: #### D DIM #### [facility] [address] [place] [address] Dr. Dominic Dunn EGFR-NON AF ITALIAN >60 Normal >=60 [facility] Comment on above: Performed By: #### D DIM #### [facility] [address] [place] [address] Dr. Dominic Dunn Globulin (S) [Mass/Vol] 2.8 g/dL Normal [facility] Comment on above: Performed By: #### D DIM #### [facility] [address] [place] [address] Dr. Dominic Dunn Glucose [Mass/Vol] 149 mg/dL Critically high 74-106 [facility] Comment on above: Performed By: #### D DIM #### [facility] [address] [place] [address] Dr. Dominic Dunn Potassium [Moles/Vol] 3.3 mmol/L Critically low 3.5-5.1 [facility] Comment on above: Performed By: #### D DIM #### [facility] [address] [place] [address] Dr. Dominic Dunn Protein [Mass/Vol] 5.1 g/dL Critically low 6.4-8.2 Th [facility] Comment on above: Performed By: #### D DIM #### [facility] [address] [place] [address] Dr. Dominic Dunn Sodium [Moles/Vol] 143 mmol/L Normal 136-145 [facility] Comment on above: Performed By: #### D DIM #### [facility] [address] [place] [address] Dr. Dominic Dunn Urea nitrogen [Mass/Vol] 8.0 mg/dL Normal 7.0-18.0 [facility] Comment on above: Performed By: #### D DIM #### [facility] [address] [place] [address] Dr. Dominic Dunn Urea nitrogen/Creatinine [Mass ratio] 9.1 mg/mg Normal [facility] Comment on above: Performed By: #### D DIM #### [facility] [address] [place] [address] Dr. Dominic Dunn VANCOMYCIN TROUGHon 06-29-19 VANCOMYCIN TROUGH 26.9 ug/ml Critically high 5.0-20.0 [facility] Comment on above: Performed By: #### C MREP #### [facility] [address] [place] [address] Dr. Dominic Dunn CBC AUTO DIFFon 06-28-2022 BASO # 0.0 103/ul Normal 0.0-0.1 [facility] Comment on above: Performed By: #### L ACT #### [facility] [address] [place] [address] Dr. Dominic Dunn Basophils/100 WBC (Bld) 0.1 % Critically low 0.2-2.0 [facility] Comment on above: Performed By: #### L ACT #### [facility] [address] [place] [address] Dr. Dominic Dunn EO # 0.0 103/ul Normal 0.0-0.7 [facility] Comment on above: Performed By: #### L ACT #### [facility] [address] [place] [address] Dr. Dominic Dunn Eosinophils/100 WBC (Bld) 0.0 % Critically low 0.9-7.0 [facility] Comment on above: Performed By: #### L ACT #### [facility] [address] [place] [address] Dr. Dominic Dunn Erythrocyte distribution width (RBC) [Ratio] 12.0 % Normal 11.0-15.0 [facility] Comment on above: Performed By: #### L ACT #### [facility] [address] [place] [address] Dr. Dominic Dunn Hematocrit (Bld) [Volume fraction] 41.5 % Critically low 42.0-54.0 [facility] Comment on above: Performed By: #### L ACT #### [facility] [address] [address] [address] Dominic Dunn Hemoglobin (Bld) [Mass/Vol] 14.5 g/dL Normal 14.0-18.0 [facility] Comment on above: Performed By: #### L ACT #### [facility] [address] [address] [address] Dominic Dunn IG # 0.07 10e3/ul Critically high 0.00-0.03 [facility] Comment on above: Performed By: #### L ACT #### [facility] [address] [address] [address] Dominic Dunn IG % 0.5 % Normal 0.0-0.5 [facility] Comment on above: Performed By: #### L ACT #### [facility] [address] [address] [address] Dominic Dunn LYMPH # 0.7 103/ul Critically low 1.2-3.[address] [facility] Comment on above: Performed By: #### L ACT #### [facility] [address] [address] [address] Dominic Dunn Lymphocytes/100 WBC (Bld) 4.6 % Critically low 20.5-60.0 [facility] Comment on above: Performed By: #### L ACT #### [facility] [address] [address] [address] Dominic Dunn MANUAL DIFF REQ NO Normal [facility] Comment on above: Performed By: #### L ACT #### [facility] [address] [address] [address] Dominic Dunn MCH (RBC) [Entitic mass] 32.7 pg Normal 25.9-34.0 [facility] Comment on above: Performed By: #### L ACT #### [facility] [address] [address] [address] Dominic Dunn MCHC (RBC) [Mass/Vol] 34.9 g/dL Normal 29.9-35.2 [facility] Comment on above: Performed By: #### L ACT #### [facility] [address] [place] [address] Dr. Dominic Dunn MCV (RBC) [Entitic vol] 93.7 fL Normal 80.0-94.0 [facility] Comment on above: Performed By: #### L ACT #### [facility] [address] [place] [address] Dr. Dominic Dunn MONO # 0.5 103/ul Normal 0.3-0.8 [facility] Comment on above: Performed By: #### L ACT #### [facility] [address] [place] [address] Dr. Dominic Dunn Monocytes/100 WBC (Bld) 3.3 % Normal 1.7-12.0 [facility] Comment on above: Performed By: #### L ACT #### [facility] [address] [place] [address] Dr. Dominic Dunn NEUT # 13.5 103/ul Critically high 1.4-6.5 [facility] Comment on above: Performed By: #### L ACT #### [facility] [address] [place] [address] Dr. Dominic Dunn Neutrophils/100 WBC (Bld) 91.5 % Critically high 43.0-75.0 [facility] Comment on above: Performed By: #### L ACT #### [facility] [address] [place] [address] Dr. Dominic Dunn Platelet mean volume (Bld) [Entitic vol] 10.1 fL Normal 9.5-13.5 [facility] Comment on above: Performed By: #### L ACT #### [facility] [address] [place] [address] Dr. Dominic Dunn PLT 157 103/ul Normal 150-450 [facility] Comment on above: Performed By: #### L ACT #### [facility] [address] [place], [place] [id number] Dr. Dominic Dunn RBC 4.43 106/ul Critically low 4.70-6.10 [facility] Comment on above: Performed By: #### L ACT #### [facility] [address] [address] [address] Dominic Dunn WBC 14.7 103/ul Critically high 4.0-11.0 [facility] Comment on above: Performed By: #### L ACT #### [facility] [address] [place] [address] Dr. Dominic Dunn CULTURE BLOODon 06-28-2022 Microscopic examination of blood, culture Culture Observations: NO GROWTH AT 5 DAYS. Normal [facility] Comment on above: Performed By: #### L ACT #### [facility] [address] [place] [address] Dr. Dominic Dunn Microscopic examination of blood, culture Culture Observations: NO GROWTH AT 5 DAYS. [facility] Comment on above: Performed By: #### B [id number] #### [facility] [address] [place] [address] Dr. Dominic Dunn LACTATE/LACTIC ACIDon 2022 Lactate [Moles/Vol] 2.3 mmol/L Critically high 0.4-1.9 [facility] Comment on above: Performed By: #### L ACT #### [facility] [address] [place] [address] Dr. Dominic Dunn Lactate [Moles/Vol] 6.1 mmol/L Critically high 0.4-1.9 [facility] Comment on above: Performed By: #### D DIM #### [facility] [address] [place] [address] Dr. Dominic Dunn Lactate [Moles/Vol] 5.4 mmol/L Critically high 0.4-1.9 [facility] Comment on above: Performed By: #### C MREP #### [facility] [address] [place] [address] Dr. Dominic Dunn PROF 14(COMP METB)on 023 Albumin [Mass/Vol] 2.7 g/dL Critically low 3.4-5.0 Th e [facility] Comment on above: Performed By: #### D DIM #### [facility] [address] [place] [address] Dr. Dominic Dunn Albumin/Globulin [Mass ratio] 0.9 {ratio} Normal [facility] Comment on above: Performed By: #### D DIM #### [facility] [address] [place] [address] Dr. Dominic Dunn ALP [Catalytic activity/Vol] 58 U/L Normal 46-116 [facility] Comment on above: Performed By: #### D DIM #### [facility] [address] [place] [address] Dr. Dominic Dunn ALT [Catalytic activity/Vol] 20 U/L Normal 16-63 [facility] Comment on above: Performed By: #### D DIM #### [facility] [address] [place] [address] Dr. Dominic Dunn Anion gap [Moles/Vol] 11.8 mmol/L Normal [facility] Comment on above: Performed By: #### D DIM #### [facility] [address] [place] [address] Dr. Dominic Dunn AST [Catalytic activity/Vol] 16 U/L Normal 15-37 [facility] Comment on above: Performed By: #### D DIM #### [facility] [address] [place] [address] Dr. Dominic Dunn Bilirubin [Mass/Vol] 0.5 mg/dL Normal 0.2-1.0 [facility] Comment on above: Performed By: #### D DIM #### [facility] [address] [place] [address] Dr. Dominic Dunn Calcium [Mass/Vol] 7.8 mg/dL Critically low 8.5-10.1 Th [facility] Comment on above: Performed By: #### D DIM #### [facility] [address] [place] [address] Dr. Dominic Dunn Chloride [Moles/Vol] 107 mmol/L Normal 98-107 [facility] Comment on above: Performed By: #### D DIM #### [facility] [address] [place] [address] Dr. Dominic Dunn CO2 [Moles/Vol] 25.7 mmol/L Normal 21.0-32.0 [facility] Comment on above: Performed By: #### D DIM #### [facility] [address] [address] [address] Dominic Dunn Creatinine [Mass/Vol] 0.86 mg/dL Normal 0.70-1.30 [facility] Comment on above: Performed By: #### D DIM #### [facility] [address] [address] [address] Dominic Dunn EGFR-AF ITALIAN >60 Normal >=60 [facility] Comment on above: Performed By: #### D DIM #### [facility] [address] [address] [address] Dominic Dunn EGFR-NON AF ITALIAN >60 Normal >=60 [facility] Comment on above: Performed By: #### D DIM #### [facility] [address] [place] [address] Dr. Dominic Dunn Globulin (S) [Mass/Vol] 3.1 g/dL Normal [facility] Comment on above: Performed By: #### D DIM #### [facility] [address] [place] [address] Dr. Dominic Dunn Glucose [Mass/Vol] 144 mg/dL Critically high 74-106 [facility] Comment on above: Performed By: #### D DIM #### [facility] [address] [place] [address] Dr. Dominic Dunn Potassium [Moles/Vol] 3.5 mmol/L Normal 3.5-5.1 [facility] Comment on above: Performed By: #### D DIM #### [facility] [address] [place] [address] Dr. Dominic Dunn Protein [Mass/Vol] 5.8 g/dL Critically low 6.4-8.2 Th [facility] Comment on above: Performed By: #### D DIM #### [facility] [address] [address] [address] Dominic Dunn Sodium [Moles/Vol] 141 mmol/L Normal 136-145 [facility] Comment on above: Performed By: #### D DIM #### [facility] [address] [place] [address] Dr. Dominic Dunn Urea nitrogen [Mass/Vol] 7.0 mg/dL Normal 7.0-18.0 [facility] Comment on above: Performed By: #### D DIM #### [facility] [address] [place] [address] Dr. Dominic Dunn Urea nitrogen/Creatinine [Mass ratio] 8.1 mg/mg Normal [facility] Comment on above: Performed By: #### D DIM #### [facility] [address] [place] [address] Dr. Dominic Dunn XR CHEST 2 Von 06-28-2022 XR CHEST 2 V EXAM: XR CHEST 2 V HISTORY: pain , shortness of breath for the past 6 days. COMPARISON: 06/27/2022 TECHNIQUE: Upright PA and lateral chest x-ray FINDINGS: The heart is not enlarged and the vasculature is not distended. There is slightly shallow inspiration. No acute infiltrate, effusion or pneumothorax is readily identified. The osseous structures are grossly intact. IMPRESSION: No apparent acute infiltrate or evidence of cardiac decompensation. Given some differences in technique, the overall appearance of the chest has not changed significantly. Electronically authenticated by: RENARD MAGAÑA Date: 2022-06-28 16:52 Normal [facility] AMYLASEon 06-27-2022 Amylase [Catalytic activity/Vol] 49 U/L Normal 25-115 [facility] Comment on above: Performed By: #### D DIM #### [facility] [address] [place] [address] Dr. Dominic Dunn CARDIAC RAJI 3-6on 3 CK [Catalytic activity/Vol] 149 U/L Normal 39-308 [facility] Comment on above: Performed By: #### C MREP #### [facility] [address] [place] [address] Dr. Dominic Dunn CK.MB [Mass/Vol] ng/mL Normal <=3.60 [facility] Comment on above: Performed By: #### C MREP #### [facility] [address] [place] [address] Dr. Dominic Dunn HSTROP 12.5 pg/mL Normal 4.0-76.1 [facility] Comment on above: Result Comment: CUT- OFF POINTS HAVE BEEN ESTABLISHED BASED ON THE FOURTH UNIVERSAL DEFINITIONS OF MYOCARDIAL INFARCTION. THE UPPER REFERENCE LIMIT (URL) OF TROPONIN, DEFINED THE 99TH PERCENTILE OF cTnI DISTRIBUTION IN A REFERENCE POPULATION, HAS BEEN CONFIRMED THE DECISION THRESHOLD FOR ME DIAGNOSIS. Performed By: #### C MREP #### [facility] [address] [address] [address] Dominic Dunn CK [Catalytic activity/Vol] 115 U/L Normal 39-308 [facility] Comment on above: Performed By: #### C MREP #### [facility] [address] [address] [address] Dominic Dunn HSTROP 5.4 pg/mL Normal 4.0-76.1 [facility] Comment on above: Result Comment: CUT- OFF POINTS HAVE BEEN ESTABLISHED BASED ON THE [facility] UNIVERSAL DEFINITIONS OF MYOCARDIAL INFARCTION. THE UPPER REFERENCE LIMIT (URL) OF TROPONIN, DEFINED THE 99TH PERCENTILE OF cTnI DISTRIBUTION IN A REFERENCE POPULATION, HAS BEEN CONFIRMED THE DECISION THRESHOLD FOR ME DIAGNOSIS. Performed By: #### C MREP #### [facility] [address] [place] [address] Dr. Dominic Dunn CARDIAC RAJI ADMITon 023 CK [Catalytic activity/Vol] 132 U/L Normal 39-308 [facility] Comment on above: Performed By: #### D DIM #### [facility] [address] [place] [address] Dr. Dominic Dunn CK.MB [Mass/Vol] 0.24 ng/mL Normal <=3.60 [facility] Comment on above: Performed By: #### D DIM #### [facility] [address] [place] [address] Dr. Dominic Dunn HSTROP 4.4 pg/mL Normal 4.0-76.1 [facility] Comment on above: Result Comment: CUT- OFF POINTS HAVE BEEN ESTABLISHED BASED ON THE FOURTH UNIVERSAL DEFINITIONS OF MYOCARDIAL INFARCTION. THE UPPER REFERENCE LIMIT (URL) OF TROPONIN, DEFINED THE 99TH PERCENTILE OF cTnI DISTRIBUTION IN A REFERENCE POPULATION, HAS BEEN CONFIRMED THE DECISION THRESHOLD FOR ME DIAGNOSIS. Performed By: #### D DIM #### [facility] [address] [address] [address] Dominic Dunn MONTY 100 ng/mL Critically high 16-96 [facility] Comment on above: Performed By: #### D DIM #### [facility] [address] [address] [address] Dominic Dunn CBC AUTO DIFFon 06-27-2022 BASO # 0.0 103/ul Normal 0.0-0.1 [facility] Comment on above: Performed By: #### C MREP #### [facility] [address] [address] [address] Dominic Dunn Basophils/100 WBC (Bld) 0.2 % Normal 0.2-2.0 [facility] Comment on above: Performed By: #### C MREP #### [facility] [address] [place] [address] Dr. Dominic Dunn EO # 0.0 103/ul Normal 0.0-0.7 [facility] Comment on above: Performed By: #### C MREP #### [facility] [address] [address] [address] Dominic Dunn Eosinophils/100 WBC (Bld) 0.0 % Critically low 0.9-7.0 [facility] Comment on above: Performed By: #### C MREP #### [facility] [address] [address] [address] Dominic Dunn Erythrocyte distribution width (RBC) [Ratio] 11.7 % Normal 11.0-15.0 [facility] Comment on above: Performed By: #### C MREP #### [facility] [address] [address] [address] Dominic Dunn Hematocrit (Bld) [Volume fraction] 47.3 % Normal 42.0-54.0 [facility] Comment on above: Performed By: #### C MREP #### [facility] [address] [address] [address] Dominic Dunn Hemoglobin (Bld) [Mass/Vol] 16.6 g/dL Normal 14.0-18.0 [facility] Comment on above: Performed By: #### C MREP #### [facility] [address] [place] [address] Dr. Dominic Dunn IG # 0.02 10e3/ul Normal 0.00-0.03 [facility] Comment on above: Performed By: #### C MREP #### [facility] [address] [place] [address] Dr. Dominic Dunn IG % 0.2 % Normal 0.0-0.5 [facility] Comment on above: Performed By: #### C MREP #### [facility] [address] [place] [address] Dr. Dominic Dunn LYMPH # 0.4 103/ul Critically low 1.2-3.[address] [facility] Comment on above: Performed By: #### C MREP #### [facility] [address] [place] [address] Dr. Dominic Dunn Lymphocytes/100 WBC (Bld) 4.1 % Critically low 20.5-60.0 [facility] Comment on above: Performed By: #### C MREP #### [facility] [address] [place] [address] Dr. Dominic Dunn MANUAL DIFF REQ NO Normal [facility] Comment on above: Performed By: #### C MREP #### [facility] [address] [place] [address] Dr. Dominic Dunn MCH (RBC) [Entitic mass] 32.4 pg Normal 25.9-34.0 [facility] Comment on above: Performed By: #### C MREP #### [facility] [address] [place] [address] Dr. Dominic Dunn MCHC (RBC) [Mass/Vol] 35.1 g/dL Normal 29.9-35.2 [facility] Comment on above: Performed By: #### C MREP #### [facility] [address] [place] [address] Dr. Dominic Dunn MCV (RBC) [Entitic vol] 92.4 fL Normal 80.0-94.0 [facility] Comment on above: Performed By: #### C MREP #### [facility] [address] [address] [address] Dominic Dunn MONO # 0.9 103/ul Critically high 0.3-0.8 [facility] Comment on above: Performed By: #### C MREP #### [facility] [address] [address] [address] Dominic Dunn Monocytes/100 WBC (Bld) 8.8 % Normal 1.7-12.0 [facility] Comment on above: Performed By: #### C MREP #### [facility] [address] [address] [address] Dominic Dunn NEUT # 8.4 103/ul Critically high 1.4-6.5 [facility] Comment on above: Performed By: #### C MREP #### [facility] [address] [place] [address] Dr. Dominic Dunn Neutrophils/100 WBC (Bld) 86.7 % Critically high 43.0-75.0 [facility] Comment on above: Performed By: #### C MREP #### [facility] [address] [place] [address] Dr. Dominic Dunn Platelet mean volume (Bld) [Entitic vol] 10.1 fL Normal 9.5-13.5 [facility] Comment on above: Performed By: #### C MREP #### [facility] [address] [place] [address] Dr. Dominic Dunn PLT 144 103/ul Critically low 150-[address] [facility] Comment on above: Performed By: #### C MREP #### [facility] [address] [address] [address] Dominic Dunn RBC 5.12 106/ul Normal 4.70-6.10 [facility] Comment on above: Performed By: #### C MREP #### [facility] [address] [address] [address] Dominic Dunn WBC 9.7 103/ul Normal 4.0-11.0 [facility] Comment on above: Performed By: #### C MREP #### [facility] [address] [address] [address] Dominic Dunn CTA CHEST WO W CONon 023 CTA CHEST WO W CON EXAMINATION: CTA CHEST WO W CON HISTORY: SHORTNESS OF BREATH COMPARISON: Chest radiograph 06/27/2022. TECHNIQUE: CT angiography of the pulmonary arteries following the administration of intravenous contrast. Coronal and sagittal MIP (maximum intensity projection) images and 3-D images were performed. Dose reduction techniques were achieved by using automated exposure control and/or adjustment of mA and/or kV according to patient size and/or use of iterative reconstruction technique. FINDINGS: Chest wall/thoracic inlet/central airways: Within normal limits. Central airways patent. Thyroid: Visualized portions within normal limits. Mediastinum/earle/axi llae: No adenopathy. Heart/vessels: No pulmonary embolism. The pulmonary artery and aorta are normal in course and caliber. Heart is normal in size. No pericardial effusion. Pleura: No pleural effusion or pneumothorax. Lungs: Posterior consolidative densities are present involving involving the right lower lobe slightly greater along the superior segment concerning for pneumonia. A few scattered groundglass opacities are present involving the dependent/posterior right upper lobe inferiorly. MSK: No acute osseous or soft tissue findings. Nonspecific sclerotic lesion involving the left seventh rib with narrow zone of transition. This measures approximately 2.6 cm in AP diameter. IMPRESSION: 1. No pulmonary embolism. 2. Airspace disease/pneumonia involving the right lower lobe and to a lesser extent subtle ground glass opacities involving the posterior inferior right upper lobe. 3. Nonspecific sclerotic lesion involving the left seventh rib with narrow zone of transition without overt aggressive/destructi ve features. This is indeterminate but favored to relate to a nonaggressive etiology such as a benign bone island. Continued attention on follow-up as clinically warranted. Electronically authenticated by: SEGUNDO AMBRIZ Date: 2022-06-27 11:08 Normal [facility] CULTURE BLOODon 06-27-2022 Microscopic examination of blood, culture Culture Observations: NO GROWTH AT 5 DAYS. Normal [facility] Comment on above: Performed By: #### B [id number] #### [facility] [address] [place], [place] [address] Dr. Dominic Dunn Microscopic examination of blood, culture Culture Observations: NO GROWTH AT 5 DAYS. Normal [facility] Comment on above: Performed By: #### L ACT #### [facility] [address] [place] [address] Dr. Dominic Dunn D-DIMERon 06-27-2022 D-DIMER 0.46 mg/L FEU Normal <=0.59 [facility] Comment on above: Performed By: #### D DIM #### [facility] [address] [place] [address] Dr. Dominic Dunn D-DIMER COMMENTS SEE BELOW Normal [facility] Comment on above: Result Comment: Incr eases in D-Dimer concentration observed with thromboembolic events can be variable due to localization, size, and age of the thrombus. Therefore, a thromboembolic event cannot be diagnosed with certainty on the basis of the reference range. D-Dimers may also be elevated for a variety of disorders including: advanced age, , coronary disease, cancer, liver disease, infection, inflammation, hematoma, DIC, trauma, post-surgery, diabetes, thrombolytic or anticoagulant therapy, stress, and generalized hospitalization. Performed By: #### D DIM #### [facility] [address] [place] [address] Dr. Dominic Dunn ER URINE PROFILEon 3 Bilirubin Ql (U) Negative Normal NEGATIVE [facility] Comment on above: Performed By: #### C MREP #### [facility] [address] [place] [address] Dr. Dominic Dunn Clarity (U) CLEAR Normal CLEAR [facility] Comment on above: Performed By: #### C MREP #### [facility] [address] [place] [address] Dr. Dominic Dunn Color (U) YELLOW Normal YELLOW [facility] Comment on above: Performed By: #### C MREP #### [facility] [address] [place] [address] Dr. Dominic Dunn ERUAHD A micrscopic examination will be performed if indicated. Normal [facility] Comment on above: Performed By: #### C MREP #### [facility] [address] [place] [address] Dr. Dominic Dunn Glucose Ql (U) Negative Normal NEGATIVE [facility] Comment on above: Performed By: #### C MREP #### [facility] [address] [place] [address] Dr. Dominic Dunn Hemoglobin Ql (U) Negative Normal NEGATIVE [facility] Comment on above: Performed By: #### C MREP #### [facility] [address] [place] [address] Dr. Dominic Dunn Ketones Ql (U) TRACE Abnormal NEGATIVE [facility] Comment on above: Performed By: #### C MREP #### [facility] [address] [place] [address] Dr. Dominic Dunn LEUKOCYTES Negative Normal NEGATIVE [facility] Comment on above: Performed By: #### C MREP #### [facility] [address] [place] [address] Dr. Dominic Dunn Nitrite Ql (U) Negative Normal NEGATIVE [facility] Comment on above: Performed By: #### C MREP #### [facility] [address] [place] [address] Dr. Dominic Dunn pH (U) 6.0 [pH] Normal 5-9 [facility] Comment on above: Performed By: #### C MREP #### [facility] [address] [place] [address] Dr. Dominic Dunn SPEC GRAVITY 1.010 Normal 1.005-<=1.025 [facility] Comment on above: Performed By: #### C MREP #### [facility] [address] [place] [address] Dr. Dominic Dunn UA PROTEIN TRACE Normal NEGATIVE/ TRACE [facility] Comment on above: Performed By: #### C MREP #### [facility] [address] [place] [address] Dr. Dominic Dunn UR MICRO IND NOT INDICATED Normal [facility] Comment on above: Performed By: #### C MREP #### [facility] [address] [place] [address] Dr. Dominic Dunn Urobilinogen Qn (U) 0.2 {Antonina'U}/dL Normal 0.2 - 1. 0 [facility] Comment on above: Performed By: #### C MREP #### [facility] [address] [place] [address] Dr. Dominic Dunn LACTATE/LACTIC ACIDon 2022 Lactate [Moles/Vol] 1.9 mmol/L Normal 0.4-1.9 [facility] Comment on above: Performed By: #### L ACT #### [facility] [address] [place] [address] Dr. Dominic Dunn Lactate [Moles/Vol] 0.8 mmol/L Normal 0.4-1.9 [facility] Comment on above: Performed By: #### D DIM #### [facility] [address] [place] [address] Dr. Dominic Dunn LIPASEon 06-27-2022 Lipase [Catalytic activity/Vol] 42.0 U/L Critically low 73.0-393.0 [facility] Comment on above: Performed By: #### D DIM #### [facility] [address] [place] [address] Dr. Dominic Dunn PROF 14(COMP METB)on 023 Albumin [Mass/Vol] 3.6 g/dL Normal 3.4-5.0 [facility] Comment on above: Performed By: #### D DIM #### [facility] [address] [place] [address] Dr. Dominic Dunn Albumin/Globulin [Mass ratio] 1.0 {ratio} Normal [facility] Comment on above: Performed By: #### D DIM #### [facility] [address] [place] [address] Dr. Dominic Dunn ALP [Catalytic activity/Vol] 71 U/L Normal 46-116 [facility] Comment on above: Performed By: #### D DIM #### [facility] [address] [place] [address] Dr. Dominic Dunn ALT [Catalytic activity/Vol] 22 U/L Normal 16-63 [facility] Comment on above: Performed By: #### D DIM #### [facility] [address] [address] [address] Dominic Dunn Anion gap [Moles/Vol] 12.1 mmol/L Normal [facility] Comment on above: Performed By: #### D DIM #### [facility] [address] [address] [address] Dominic Dunn AST [Catalytic activity/Vol] 19 U/L Normal 15-37 [facility] Comment on above: Performed By: #### D DIM #### [facility] [address] [address] [address] Dominic Dunn Bilirubin [Mass/Vol] 0.8 mg/dL Normal 0.2-1.0 [facility] Comment on above: Performed By: #### D DIM #### [facility] [address] [address] [address] Dominic Dunn Calcium [Mass/Vol] 8.4 mg/dL Critically low 8.5-10.1 Th [facility] Comment on above: Performed By: #### D DIM #### [facility] [address] [address] [address] Dominic Dunn Chloride [Moles/Vol] 103 mmol/L Normal 98-107 [facility] Comment on above: Performed By: #### D DIM #### [facility] [address] [address] [address] Dominic Dunn CO2 [Moles/Vol] 26.5 mmol/L Normal 21.0-32.0 [facility] Comment on above: Performed By: #### D DIM #### [facility] [address] [address] [address] Dominic Dunn Creatinine [Mass/Vol] 1.22 mg/dL Normal 0.70-1.30 [facility] Comment on above: Performed By: #### D DIM #### [facility] [address] [address] [address] Dominic Dunn EGFR-AF ITALIAN >60 Normal >=60 [facility] Comment on above: Performed By: #### D DIM #### [facility] [address] [address] [address] Dominic Dunn EGFR-NON AF ITALIAN >60 Normal >=60 [facility] Comment on above: Performed By: #### D DIM #### [facility] [address] [place] [address] Dr. Dominic Dunn Globulin (S) [Mass/Vol] 3.6 g/dL Normal [facility] Comment on above: Performed By: #### D DIM #### [facility] [address] [address] [address] Dominic Dunn Glucose [Mass/Vol] 121 mg/dL Critically high 74-106 [facility] Comment on above: Performed By: #### D DIM #### [facility] [address] [place] [address] Dr. Dominic Dunn Potassium [Moles/Vol] 3.6 mmol/L Normal 3.5-5.1 [facility] Comment on above: Performed By: #### D DIM #### [facility] [address] [place] [address] Dr. Dominic Dunn Protein [Mass/Vol] 7.2 g/dL Normal 6.4-8.2 [facility] Comment on above: Performed By: #### D DIM #### [facility] [address] [place] [address] Dr. Dominic Dunn Sodium [Moles/Vol] 138 mmol/L Normal 136-145 [facility] Comment on above: Performed By: #### D DIM #### [facility] [address] [place] [address] Dr. Dominic Dunn Urea nitrogen [Mass/Vol] 6.0 mg/dL Critically low 7.0-18.0 [facility] Comment on above: Performed By: #### D DIM #### [facility] [address] [place] [address] Dr. Dominic Dunn Urea nitrogen/Creatinine [Mass ratio] 4.9 mg/mg Normal [facility] Comment on above: Performed By: #### D DIM #### [facility] [address] [place] [address] Dr. Dominic Dunn RESPIRATORY PANEL PLUSon Adenovirus Not detected Normal NOT DETECTED [facility] Comment on above: Performed By: #### L ACT #### [facility] [address] [place] [address] Dr. Dominic Caballero Parapertusis Not detected Normal NOT DETECTED [facility] Comment on above: Performed By: #### L ACT #### [facility] [address] [place] [address] Dr. Dominic Caballero Pertussis Not detected Normal NOT DETECTED [facility] Comment on above: Performed By: #### L ACT #### [facility] [address] [place] [address] Dr. Dominic Dunn Chlamydia Pneumoniae Not detected Normal NOT DETECTED [facility] Comment on above: Performed By: #### L ACT #### [facility] [address] [place] [address] Dr. Dominic Dunn Coronavirus 229E Not detected Normal NOT DETECTED [facility] Comment on above: Performed By: #### L ACT #### [facility] [address] [place] [address] Dr. Dominic Dunn Coronavirus HKU1 Not detected Normal NOT DETECTED [facility] Comment on above: Performed By: #### L ACT #### [facility] [address] [place] [address] Dr. Dominic Dunn Coronavirus NL63 Not detected Normal NOT DETECTED [facility] Comment on above: Performed By: #### L ACT #### [facility] [address] [place] [address] Dr. Dominic Dunn Coronavirus OC43 Not detected Normal NOT DETECTED [facility] Comment on above: Performed By: #### L ACT #### [facility] [address] [place] [address] Dr. Dominic Dunn Influenza A H1 Not detected Normal NOT DETECTED [facility] Comment on above: Performed By: #### L ACT #### [facility] [address] [place] [address] Dr. Dominic Dunn Influenza A H1 2009 Not detected Normal NOT DETECTED [facility] Comment on above: Performed By: #### L ACT #### [facility] [address] [address] [address] Dominic Dunn Influenza A H3 Not detected Normal NOT DETECTED [facility] Comment on above: Performed By: #### L ACT #### [facility] [address] [address] [address] Dominic Dunn Influenza B Not detected Normal NOT DETECTED The [facility] Comment on above: Performed By: #### L ACT #### [facility] [address] [address] [address] Dominic Dunn Metapneumovirus Detected Abnormal NOT DETECTED [facility] Comment on above: Performed By: #### L ACT #### [facility] [address] [address] [address] Dominic Dunn Mycoplas. Pneumoniae Not detected Normal NOT DETECTED [facility] Comment on above: Performed By: #### L ACT #### [facility] [address] [address] [address] Dominic Dunn Parainfluenza 1 Not detected Normal NOT DETECTED [facility] Comment on above: Performed By: #### L ACT #### [facility] [address] [address] [address] Dominic Dunn Parainfluenza 2 Not detected Normal NOT DETECTED [facility] Comment on above: Performed By: #### L ACT #### [facility] [address] [place] [address] Dr. Dominic Dunn Parainfluenza 3 Not detected Normal NOT DETECTED [facility] Comment on above: Performed By: #### L ACT #### [facility] [address] [address] [address] Dominic Dunn Parainfluenza 4 Not detected Normal NOT DETECTED [facility] Comment on above: Performed By: #### L ACT #### [facility] [address] [address] [address] Dominic Dunn Rhino/Enterovirus Not detected Normal NOT DETECTED [facility] Comment on above: Performed By: #### L ACT #### [facility] [address] [address] [address] Dominic Dunn RP2 Header 1 RESPIRATORY PANEL: VIRUSES Normal [facility] Comment on above: Performed By: #### L ACT #### [facility] [address] [place] [address] Dr. Dominic Dunn RP2 Header 2 RESPIRATORY PANEL: BACTERIA Normal [facility] Comment on above: Performed By: #### L ACT #### [facility] [address] [place] [address] Dr. Dominic Dunn RSV Not detected Normal NOT DETECTED [facility] Comment on above: Performed By: #### L ACT #### [facility] [address] [place] [address] Dr. Dominic Dunn SARS-CoV-2 (COVID-19) RNA STONE+probe Ql (Unsp spec) Not detected Normal NOT DETECTED [facility] Comment on above: Performed By: #### L ACT #### [facility] [address] [place] [address] Dr. Dominic Dunn XR CHEST 1 Von 06-27-2022 XR CHEST 1 V EXAMINATION: XR CHEST 1 V HISTORY: SHORTNESS OF BREATH COMPARISON: No relevant comparison available. TECHNIQUE: AP portable FINDINGS: LUNGS: No significant pulmonary parenchymal abnormalities. VASCULATURE: No increased pulmonary vasculature. PLEURA: No pneumothorax, effusion, or pleural thickening. Elevation the right hemidiaphragm CARDIAC: No cardiomegaly or cardiac silhouette abnormality. MEDIASTINUM: No visible mass or adenopathy. BONES: No fracture or visible bone lesion. OTHER: Negative. IMPRESSION: No acute disease. Electronically authenticated by: QUIANA GRANADOS Date: 2022-06-27 07:13 Normal [facility] SARS-CoV-2 (COVID-19) RNA NA A+probe Ql (Resp)on 11-13-2021 SARS-CoV-2 (COVID-19) RNA STONE+probe Ql (Unsp spec) Positive [facility] Other Vital Signs Date Time Vital Sign Value Performing Clinician Facility 06-21-2023 15:54-0500 Body height 172.7 cm Christiano De La Cruz MD Work Phone: [facility] 06-21-2023 15:54-0500 Body mass index (BMI) [Ratio] 32.39 kg/m2 Christiano De La Cruz MD Work Phone: [facility] 06-21-2023 15:54-0500 Body temperature 97.81 [degF] Christiano De La Cruz MD Work Phone: [facility] 06-21-2023 15:54-0500 Body weight 96.62 kg Christiano De La Cruz MD Work Phone: [facility] 06-21-2023 15:54-0500 Diastolic blood pressure 70 mm[Hg] Christiano De La Cruz MD Work Phone: [facility] 06-21-2023 15:54-0500 Heart rate 83 /min Christiano De La Cruz MD Work Phone: [facility] 06-21-2023 15:54-0500 SaO2% (BldA) [Mass fraction] 98 % Christiano De La Cruz MD Work Phone: [facility] 06-21-2023 15:54-0500 Systolic blood pressure 124 mm[Hg] Christiano De La Cruz MD Work Phone: [facility] 05-10-2022 16:00-0500 Body height 172.72 cm Carir Cano Other [facility] Other 05-10-2022 16:00-0500 Body mass index (BMI) [Ratio] 29.95 kg/m2 Carri Cano Other [facility] Other 05-10-2022 16:00-0500 Body temperature 98.7 [degF] Carri Cano Other [facility] Other 05-10-2022 16:00-0500 Body weight 89.36 kg Carri Cano Other [facility] Other 05-10-2022 16:00-0500 Diastolic blood pressure 79 mm[Hg] Carri Cano Other [facility] Other 05-10-2022 16:00-0500 Respiratory rate 18 /min Carri Cano Other [facility] Other 05-10-2022 16:00-0500 SaO2% (BldA) [Mass fraction] 100 % Carri Cano Other [facility] Other 05-10-2022 16:00-0500 Systolic blood pressure 121 mm[Hg] Carri Cano Other [facility] Other 11-13-2021 10:15-0400 Body height 172.72 cm Peyton Stone Other [facility] Other 11-13-2021 10:15-0400 Body mass index (BMI) [Ratio] 30.41 kg/m2 Peyton Stone Other [facility] Other 11-13-2021 10:15-0400 Body temperature 100.7 [degF] Peyton Stone Other [facility] Other 11-13-2021 10:15-0400 Body weight 90.72 kg Peyton Stone Other [facility] Other 11-13-2021 10:15-0400 SaO2% (BldA) [Mass fraction] 97 % Peyton Stone Other [facility] Other 02-03-2021 15:45-0400 Body height 172.72 cm Charmaine Wheatley Other [facility] Other 02-03-2021 15:45-0400 Body mass index (BMI) [Ratio] 30.41 kg/m2 Charmaine Wheatley Other [facility] Other 02-03-2021 15:45-0400 Body temperature 97.9 [degF] Charmaine Wheatley Other [facility] Other 02-03-2021 15:45-0400 Body weight 90.72 kg Charmaine Wheatley Other [facility] Other 02-03-2021 15:45-0400 SaO2% (BldA) [Mass fraction] 96 % Charmaine Wheatley Other [facility] Other Encounters Encounter Date Encounter Type Care Provider Facility Start: 06-21-2023 End: 06-21-2023 Office outpatient visit 15 minutes Christiano De La Cruz MD Work Phone: [facility] Comment on above: Chronic bilateral lo w back pain with left-sided sciatica (Primary Dx) Start: 06-21-2023 Saad flowsheet Christiano De La Cruz MD Work Phone: [facility] Start: 06-21-2023 Saad flowsheet Christiano De La Cruz MD Work Phone: [facility] Start: 08-12-2022 End: 08-12-2022 ambulatory Imad Asaad Facility:[facility] Start: 07-20-2022 End: 07-20-2022 ambulatory Imad Asaad Other [facility] Other Start: 07-20-2022 Telephone encounter Imad Asaad [employer] Start: 06-28-2022 End: 07-01-2022 Evaluation and management of inpatient LEWSI MANLEY . Facility: Start: 05-10-2022 End: 05-10-2022 ambulatory Carri Cano Other [facility] Other Start: 05-10-2022 Office outpatient visit 15 minutes Carri Rachael [facility] Start: 11-13-2021 End: 11-13-2021 ambulatory Peyton Stone Other [facility] Other Start: 11-13-2021 Office outpatient visit 15 minutes Peyton Stone [facility] Start: 02-03-2021 Office outpatient visit 15 minutes Charmaine Wheatley [facility] Procedures Date Procedure Procedure Detail Performing Clinician Start: 06-29-2022 Drainage of Right Lo wer Lung Lobe, Via Natural or Artificial Opening Endoscopic, Diagnostic LEWIS MANLEY . Plan of Treatment Date Care Activity Detail Author Start: 06-21-2023 End: 06-21-2024 XR Lumbar spine 2 or 3 Views XR lumbar spine 2 or 3 views Imaging Routine Chronic bilateral low back pain with left-sided sciatica Expected: 06/21/2023, Expires: 06/21/2024 [facility] Work Phone: Comment on above: Expected: 06/21/2023 , Expires: 06/21/2024 Start: 01-07-2023 Influenza vaccination Influenz a Vaccine (#1) [facility] Immunizations Immunization Date Immunization Notes Care Provider Tristan pang 01-11-2019 tetanus toxoid, reduced diphtheria toxoid, and acellular pertussis vaccine, adsorbed Charmaine Wheatley Other [facility] Other Payers Date Payer Category Payer Unknown [employer] [id number] 2023-Present [address] [place] [address] [id number] 2022 Self-pay 1985 Unknown [id number] 1961 Unknown [id number] Unknown [id number] Unknown [id number] Social History Date Type Detail Facility Unknown if ever smoked [facility] [employer] Other Start: 06-21-2023 Sex Assigned At [facility] [employer] Other Tobacco smoking status [facility] Tobacco smoking consumption unknown [facility] Start: 1985 Sex Assigned At Not on file [facility] Start: 06-21-2023 Tobacco smoking status CAIS Never smoked tobacco [facility] Start: 06-21-2023 Tobacco use and exposure Smokeless tobacco non-user [facility] Start: 06-21-2023 History of Social function [facility] History of Present illness Narrative 06-21-2023 Christiano De La Cruz MD - 06/21/2023 4:13 PM ESTChristiano De La Cruz MD - 06/21/2023 3:45 PM EST Note Date & Type Note Facility 06-21-2023 History of Presen t illness Narrative Associated Problem(s): Chronic bilateral low back pain with left-sided sciatica Severe pain and injury years ago. Check x-ray. Start prednisone for inflammation and use zanaflex PRN. Use heat or massage PRN. Recommend home PT exercises and if no improvement will need MRI. Subjective Patient ID: Chris Sparks is a 37 y.o. male who presents for Back Pain. C/o low back pain since 06/19. Patient bent over to parts picker something out of a box and felt a pop in low back. Sudden onset severe pain and dropped to knees. Pain across bilateral low back and radiated into left gluteal region and down left leg. Severe pain and burning in leg. Increased tightness and spasms. Weakness in leg and hard to lift leg. Originally injured back 15-20 years ago while lifting and felt a pop. Seen by chiropractor then but no imaging. Patient has had about 3 flares over past few years that lasted few days to week but this is most intense pain. Difficult to go to work and sits all day. Using OTC and mild relief. Review of Systems Constitutional: Negative for fatigue. Respiratory: Negative for cough, shortness of breath and wheezing. Cardiovascular: Negative for chest pain and palpitations. Gastrointestinal: Negative for abdominal pain, diarrhea, nausea and vomiting. Genitourinary: Negative for dysuria. Objective Physical Exam Constitutional: General: He is not in acute distress. Appearance: Normal appearance. HENT: Head: Normocephalic. Right Ear: Tympanic membrane and ear canal normal. Left Ear: Tympanic membrane and ear canal normal. Eyes: Extraocular Movements: Extraocular movements intact. Pupils: Pupils are equal, round, and reactive to light. Cardiovascular: Rate and Rhythm: Normal rate and regular rhythm. Heart sounds: No murmur heard. No friction rub. No gallop. Pulmonary: Breath sounds: Normal breath sounds. No wheezing, rhonchi or rales. Abdominal: General: Bowel sounds are normal. There is no distension. Palpations: Abdomen is soft. Tenderness: There is no abdominal tenderness. There is no guarding or rebound. Musculoskeletal: Left lower leg: No edema. Neurological: Mental Status: He is alert. Assessment/Plan Problem List Items Addressed This Visit Chronic bilateral low back pain with left-sided sciatica - Primary Severe pain and injury years ago. Check x-ray. Start prednisone for inflammation and use zanaflex PRN. Use heat or massage PRN. Recommend home PT exercises and if no improvement will need MRI. Relevant Medications predniSONE (Deltasone) 50 MG tablet tiZANidine (Zanaflex) 4 MG tablet Other Relevant Orders XR lumbar spine 2 or 3 views documented in this encounter [facility] Evaluation note 05-10-2022 Note Date & Type Note Facility 05-10-2022 Evaluation note Encounter Date Diagnosis Assessment Notes May, Acute sinusitis, recurrence not specified, unspecified location (ICD-10 - J01.90) Sinusitis home care material was printed Drink plenty fluids, get plenty of rest. Take the amoxicillin with clavulanate and prednisone as prescribed until gone. Take Tylenol or Motrin for aches pains or fevers. Follow-up with your family physician if no improvement in 2 to 3 days. [facility] Other Evaluation note 11-13-2021 Note Date & Type Note Facility 11-13-2021 Evaluation note Encounter Date Diagnosis Assessment Notes Nov, Fever (ICD-10 - R50.9) Nov, COVID-19 (ICD-10 - U07.1) COVID testing is positive. Recommended patient initiate self quarantine per CDC guidlines: for at least 5 days from symptom onset, afebrile for >24 hours without use of antipyretics, and symptoms are mostly resolved. Pt educated on quarantine measures, info sheet provided. Advised patient to treat symptomatically as discussed, rest, stay hydrated. Immediate evaluation via ED if warning symptoms of respiratory distress, intractable fevers, severe abdominal pain, inability to keep down foods or fluids, or s/s of dehydration. Follow up with PCP if new or worsening symptoms after 1 week. [facility] Other Evaluation note 02-03-2021 Note Date & Type Note Facility 02-03-2021 Evaluation note Encounter Date Diagnosis Assessment Notes Jan, Bronchitis (ICD-10 - J40) Ear infections are often a secondary infection caused from an URI, the flu or allergies. Take medication as directed. Complete all doses, even if you feel better. Tylenol or ibuprofen can help with pain. Warm pack to area for comfort helps as well. Follow up with primary care provider if no improvement of symptoms. Jan, Bilateral acute otitis media (ICD-10 - H66.93) Ear infections are often a secondary infection caused from an URI, the flu or allergies. Take medication as directed. Complete all doses, even if you feel better. Tylenol or ibuprofen can help with pain. Warm pack to area for comfort helps as well. Follow up with primary care provider if no improvement of symptoms. [facility] Other History general Narrative - Reported 02-07-2016 Note Date & Type Note Facility 02-07-2016 History general N arrative - Reported Type Medical History Depression Medical History Insomnia, unspecified Medical History Anxiety/Panic Attacks Hospitalization History Anxiety, Depression, SI -- [facility] 02/2016 [facility] Other Evaluation note Note Date & Type Note Facility Evaluation note No Information [facility] [employer] Other Evaluation note Note Date & Type Note Facility Evaluation note Diagnosis Chronic bilateral low back pain with left-sided sciatica- Primary documented in this encounter [facility] Summary Purpose Family History No Family History Records FoundNo Family History Records Found Advance Directives No Advanced Directives Records FoundNo Advanced Directives Records Found Additional Source Comments REASON FOR VISIT (unrecogniz ed section and content) Reason Comments Back Pain (unrecognized sect ion and content) No Status Records FoundNo Status Records Found INFORMATION SOURCE (unrecogn ized section and content) DATE CREATED AUTHOR 08/15/2022 [facility] DATE CREATED AUTHOR AUTHOR'S ORGANIZ ATION 08/18/2022 [facility] Care Teams (unrecognized sec tion and content) Driller Operator Relationship Specialty Start Date End Date Christiano De La Cruz MD [address] [place] [id number] PCP - General Family Medicine 06/21/23 Driller Operator Relationship Specialty Start Date End Date Christiano De La Cruz MD [address] [place] [id number] PCP - General Family Medicine 06/21/23 FOR RECORDS PERTAINING TO PATIENTS WHO ARE OR HAVE BEEN ENROLLED IN A CHEMICAL DEPENDENCY/SUBSTANCEABUSE PROGRAM, SOME INFORMATION MAY BE OMITTED. This clinical summary was aggregated from multiple sources. Caution should be exercised in using it in the provision of clinical care. This summary normalizes information from multiple sources, and as a consequence, information in this document may materially change the coding, format and clinical context of patient data. In addition, data may be omitted in some cases. CLINICAL DECISIONS SHOULD BE BASED ON THE PRIMARY CLINICAL RECORDS. [facility] [facility]. provides no warranty or guarantee of the accuracy or completeness of information in this document.
--- NOTE | 2023-06-22 08:26 | XR_ITS ---
[facility] [id number] Patient Name: JUVENCIO SPARKS MRN: [id number] date: 1985 Sex: M Assigned Patient Location: RAD Current Patient Location: [facility] Accession/Order Number: [id number] Exam Date: 06/22/2023 08:20 Report Date: 06/22/2023 09:06 At the request of: SASHA WILKES Procedure: XR lumbar spine 2-3V EXAMINATION: XR lumbar spine 2-3V HISTORY: Chronic Bilateral Low Back Pain With Left Sided Sciatica COMPARISON: No relevant comparison available. FINDINGS: BONES: No significant spondylosis, scoliosis, fracture, or visible bony lesion. DISC SPACES: L5-S1 mild narrowing posteriorly. PARASPINOUS: Negative. No paraspinous abnormality is seen. OTHER: Negative. XR/XR lumbar spine 2-3V IMPRESSION: 1. L5-S1 mild disc space narrowing. Consider MRI for further evaluation if symptoms persist. Electronically authenticated by: PRICILA CHAUDHRY Date: 06/22/2023 09:06
== END 2023-06-22 08:11 | disposition home or self-care (01) ==
LOC: RAD 08:11
PROVIDERS: PCP Family Medicine; Visit Provider Family Medicine
DX: M54.42 Lumbago with sciatica, left side (principal); G89.29 Other chronic pain
CPT/HCPCS: 72100

== ENCOUNTER 2023-07-05 07:34 | Outpatient (OUT) | payer OTHER, SELFPAY ==
--- OUTSIDE RECORDS SUMMARY | 2023-07-05 07:37 | XMS_ITS | CCD ---
Author Name Unknown Address [id number] [facility] [address] [place] [address] Organization [facility] Care Team Providers Care Ocular Care Aide Name Role Phone Charmaine Wheatley Unavailable Peyton Stone Unavailable Carri Cano Unavailable Asaad, Imad Unavailable SAMSA ., LEWIS Procedure Practitioner Unavailab le IVIS ., LICO Attending Unavailable IVIS ., LICO Admitting Unavailable REQUEST, DR NONE LISTED Primary Care Unavailelgin GRANADOS, DR QUIANA Lawler Consulting Unavailable TATUM ULLOA Consulting Unavailable VINEET ., LEWIS Consulting Unavailable TORITO LANCASTER Consulting Unavailable FERMIN ., MAEVE Consulting Unavailable SEGUNDO AMBRIZ Consulting UnavailRENARD Au Consulting Unavailable ZEESHAN TUCKER Consulting Unavailable SISTER, SANDI Consulting Unavailable IVIS ., LICO Consulting Unavailable IVIS II, KIMBERLI Consulting Unavailable Asaad, Imad Attending Unavailable Asaad, Imad Admitting Unavailable NO FAMILY, PHYSICIAN Primary Care Unavailable Christiano Wilkes MD Primary Care Provider [phone] CHRISTIANO WILKES Attending Unavailable Medications Current Medications Medication Drug Class(es) Dates Sig (Normalized) Sig (Original) [id number] 200 actuat albuterol 0.09 mg/actuat metered dose [...] 12 hrs for 7 days Jan, Active amoxicillin 875 mg / clavulanate 125 mg oral tablet (1 source) Penicillin-class Antibacterial Start: 4 take 1 tablet by mouth twice daily Amoxicillin-Pot Clavulanate Active 1 TAB PO Twice daily 25 02June 28, 2023 12:00am methylPREDNISolone 4 mg oral tablet (1 source) Corticosteroid Start: 1 methylPREDNISolone 4 MG as directed Orally Once a day for 6 days Jan, Active omeprazole 40 mg delayed release oral capsule (1 source) Proton Pump Inhibitor Start: 3 take 40 mg by mouth once daily Omeprazole Active 40 MG PO Daily August 11, 2022 11:00pm predniSONE 50 mg oral tablet (4 sources) [...] muscle spasms 30 tablet 0 06/21/2023 Active Completed/Discontinued Medications Medication Drug Class(es) Dates Sig (Normalized) Sig (Original) clomiPRAMINE hydrochloride 50 mg oral capsule (1 source) Tricyclic Antidepressant Start: 05-16-2017 End: 09-07-2017 take 150 mg by mouth once daily at bedtime Clomipramine Discontinued 150 MG PO Daily at bedtime May 16, 2017 12:00am September 07, 2017 8:48am LORazepam 2 mg oral tablet (1 source) Benzodiazepine Start: 05-09-2017 End: 09-07-2017 take 0.5 mg by mouth twice daily Lorazepam Discontinued 0.5 MG PO Twice daily May 09, 2017 12:00am September 07, 2017 8:48am OLANZapine 2.5 mg oral tablet (2 sources) Atypical Antipsychotic Start: 05-16-2017 End: 09-07-2017 take 10 mg by mouth twice daily Olanzapine Discontinued 10 MG PO Twice daily May 16, 2017 12:00am September 07, 2017 8:48am Start: 05-09-2017 End: 05-16-2017 take 1 tablet by mouth twice daily Olanzapine (Zyprexa) 2.5 mg Tablet Discontinued 2.5 MG PO Twice daily May 09, 2017 12:00am May 16, 2017 9:48am QUEtiapine 100 mg oral tablet (2 sources) Atypical Antipsychotic Start: 09-07-2017 End: 09-09-2017 take 150 mg by mouth once daily at bedtime Quetiapine Discontinued 150 MG PO Daily at bedtime September 06, 2017 11:00pm September 09, 2017 7:52am risperiDONE 1 mg oral tablet (1 source) Atypical Antipsychotic Start: 09-06-2017 End: 09-09-2017 take 1 mg by mouth once daily in the morning Risperidone Discontinued 1 MG PO Every morning September 05, 2017 11:00pm September 09, 2017 7:52am traZODone hydrochloride 100 mg oral tablet (3 sources) Serotonin Reuptake Inhibitor Start: 05-16-2017 End: 08-12-2022 take 100 mg by mouth at bedtime Trazodone Discontinued 100 MG PO Bedtime September 09, 2017 7:53am August 12, 2022 12:00pm Start: 05-09-2017 End: 05-16-2017 take 50 mg by mouth at bedtime Trazodone Discontinued 50 MG PO Bedtime May 09, 2017 12:00am May 16, 2017 9:48am 24 hr venlafaxine 150 mg extended release oral capsule (3 sources) Serotonin and Norepinephrine Reuptake Inhibitor Start: 09-07-2017 End: 09-09-2017 take 150 mg by mouth once daily in the morning Venlafaxine Discontinued 150 MG PO Every morning September 06, 2017 11:00pm September 09, 2017 7:53am Start: 05-16-2017 End: 09-07-2017 take 150 mg by mouth once daily Venlafaxine Discontinu ed 150 MG PO Daily May 16, 2017 12:00am September 07, 2017 8:48am Start: 05-09-2017 End: 05-16-2017 take 1 capsule by mouth once daily Venlafaxine (Effexor Xr) 75 mg Capsule,Extended Release 24hr Discontinued 75 MG PO Daily May 09, 2017 12:00am May 16, 2017 9:48am Problems Active Problems Problem Classification Problem Date Documented Da te Episodic/Chronic Anxiety disorders (5 sources) Mixed anxiety and depressive disorder; Translations: [Other specified anxiety disorders] 04-20-2023 Chronic Cardiac dysrhythmias (1 source) Palpitations; Translations: [PALPITATIONS] Onset: 07-07-2022 Episodic E Codes: Adverse effects of medical drugs (1 source) Adverse effect of antiasthmatics, initial encounter; Translations: [ADVERSE EFF ANTIASTHMATICS INIT ENC] Onset: 07-07-2022 Episodic Esophageal disorders (5 sources) Acid reflux; Translations: [Gastro-esophageal reflux disease without esophagitis] Onset: 07-07-2022 06-21-2023 Chronic Immunizations and screening for infectious disease (4 sources) Suspected clinical finding; Translations: [Contact with and (suspected) exposure to other viral communicable diseases] 06-28-2023 Episodic Mood disorders (6 sources) Recurrent major depressive episodes; Translations: [Major depressive disorder, recurrent, unspecified] 04-20-2023 Chronic Other bone disease and musculoskeletal deformities [...] Onset: 07-07-2022 Chronic Other upper respiratory infections (4 sources) Acute sinusitis, unspecified; Translations: [Acute upper [...] sciatica, left side] Onset: 06-21-2023 06-21-2023 Episodic Suicide and intentional self-inflicted injury (1 source) Suicidal thoughts; Translations: [Suicidal ideations] 04-20-2023 Episodic Unclassified (1 source) CONTACT W/AND (SUSP) [...] Episodic Viral infection (1 source) COVID-19 Onset: 07-08-2022 Resolved: 11-13-2021 Results Test Name Value Interpretation Reference Range Facility No Panel InformationOrdered By: Mavis Eric on 06-28-2023 COVID/Influenza Antigen (POC) [facility] ACID FAST SMEAR AND CXon Acid Fast Culture Negative Normal [facility] Comment on above: Result Comment: No a monica fast bacilli isolated after 6 weeks. Performed By: #### D DIM #### [facility] [address] [place] [address] Dr. Dominic Dunn Acid Fast Smear Negative Normal [facility] Comment on above: Performed By: #### D DIM #### [facility] [address] [place] [address] Dr. Dominic Dunn AF[employer] Specimen Processing Concentration Normal [facility] Comment on above: Performed By: #### D DIM #### [facility] [address] [place] [address] Dr. Dominic Dunn FUNGAL CULTUREon 07-28-2022 Fungus (Mycology) Culture Final report Normal [facility] Comment on above: Performed By: #### L ACT #### [facility] [address] [place] [address] Dr. Dominic Dunn Fungus Stain Final report Normal [facility] Comment on above: Performed By: #### L ACT #### [facility] [address] [place] [address] Dr. Dominic Dunn Result 1 Comment Normal [facility] Comment on above: Result Comment: KRISTI/ Calcofluor preparation: no fungus observed. Performed By: #### L ACT #### [facility] [address] [place] [address] Dr. Dominic Dunn Result Comment: No y east or mold isolated after 4 weeks. CBC AUTO DIFFon 07-01-2022 BASO # 0.1 103/ul Normal 0.0-0.1 [facility] Comment on above: Performed By: #### C BC #### [facility] [address] [place] [address] Dr. Dominic Dunn Basophils/100 WBC (Bld) 0.7 % Normal 0.2-2.0 [facility] Comment on above: Performed By: #### C BC #### [facility] [address] [place] [address] Dr. Dominic Dunn EO # 0.0 103/ul Normal 0.0-0.7 [facility] Comment on above: Performed By: #### C BC #### [facility] [address] [address] [address] Dominic Dunn Eosinophils/100 WBC (Bld) 0.3 % Critically low 0.9-7.0 [facility] Comment on above: Performed By: #### C BC #### [facility] [address] [place] [address] Dr. Dominic Dunn Erythrocyte distribution width (RBC) [Ratio] 12.2 % Normal 11.0-15.0 [facility] Comment on above: Performed By: #### C BC #### [facility] [address] [place] [address] Dr. Dominic Dunn Hematocrit (Bld) [Volume fraction] 40.0 % Critically low 42.0-54.0 [facility] Comment on above: Performed By: #### C BC #### [facility] [address] [place] [address] Dr. Dominic Dunn Hemoglobin (Bld) [Mass/Vol] 13.6 g/dL Critically low 14.0-18.0 [facility] Comment on above: Performed By: #### C BC #### [facility] [address] [place] [address] Dr. Dominic Dunn IG # 0.17 10e3/ul Critically high 0.00-0.03 [facility] Comment on above: Performed By: #### C BC #### [facility] [address] [place] [address] Dr. Dominic Dunn IG % 2.3 % Critically high 0.0-0.5 [facility] Comment on above: Performed By: #### C BC #### [facility] [address] [place] [address] Dr. Dominic Dunn LYMPH # 1.4 103/ul Normal 1.2-3.8 [facility] Comment on above: Performed By: #### C BC #### [facility] [address] [address] [address] Dominic Dunn Lymphocytes/100 WBC (Bld) 18.3 % Critically low 20.5-60.0 [facility] Comment on above: Performed By: #### C BC #### [facility] [address] [address] [address] Dominic Dunn MANUAL DIFF REQ NO Normal [facility] Comment on above: Performed By: #### C BC #### [facility] [address] [address] [address] Dominic Dunn MCH (RBC) [Entitic mass] 32.4 pg Normal 25.9-34.0 [facility] Comment on above: Performed By: #### C BC #### [facility] [address] [place] [address] Dr. Dominic Dunn MCHC (RBC) [Mass/Vol] 34.0 g/dL Normal 29.9-35.2 [facility] Comment on above: Performed By: #### C BC #### [facility] [address] [place] [address] Dr. Dominic Dunn MCV (RBC) [Entitic vol] 95.2 fL Critically high 80.0-94.0 [facility] Comment on above: Performed By: #### C BC #### [facility] [address] [place] [address] Dr. Dominic Dunn MONO # 0.6 103/ul Normal 0.3-0.8 [facility] Comment on above: Performed By: #### C BC #### [facility] [address] [place] [address] Dr. Dominic Dunn Monocytes/100 WBC (Bld) 8.4 % Normal 1.7-12.0 [facility] Comment on above: Performed By: #### C BC #### [facility] [address] [place] [address] Dr. Dominic Dunn NEUT # 5.3 103/ul Normal 1.4-6.5 [facility] Comment on above: Performed By: #### C BC #### [facility] [address] [address] [address] Dominic Dunn Neutrophils/100 WBC (Bld) 70.0 % Normal 43.0-75.0 [facility] Comment on above: Performed By: #### C BC #### [facility] [address] [address] [address] Dominic Dunn Platelet mean volume (Bld) [Entitic vol] 10.2 fL Normal 9.5-13.5 [facility] Comment on above: Performed By: #### C BC #### [facility] [address] [address] [address] Dominic Dunn PLT 223 103/ul Normal 150-450 [facility] Comment on above: Performed By: #### C BC #### [facility] [address] [place] [address] Dr. Dominic Dunn RBC 4.20 106/ul Critically low 4.70-6.10 [facility] Comment on above: Performed By: #### C BC #### [facility] [address] [place] [address] Dr. Dominic Dunn WBC 7.5 103/ul Normal 4.0-11.0 [facility] Comment on above: Performed By: #### C BC #### [facility] [address] [place] [address] Dr. Dominic Dunn PROF 14(COMP METB)on 023 Albumin [Mass/Vol] 2.1 g/dL Critically low 3.4-5.0 [facility] Comment on above: Performed By: #### C MREP #### [facility] [address] [place] [address] Dr. Dominic Dunn Albumin/Globulin [Mass ratio] 0.8 {ratio} Normal [facility] Comment on above: Performed By: #### C MREP #### [facility] [address] [place] [address] Dr. Dominic Dunn ALP [Catalytic activity/Vol] 51 U/L Normal 46-116 [facility] Comment on above: Performed By: #### C MREP #### [facility] [address] [address] [address] Dominic Dunn ALT [Catalytic activity/Vol] 27 U/L Normal 16-63 [facility] Comment on above: Performed By: #### C MREP #### [facility] [address] [address] [address] Dominic Dunn Anion gap [Moles/Vol] 8.3 mmol/L Normal [facility] Comment on above: Performed By: #### C MREP #### [facility] [address] [address] [address] Dominic Dunn AST [Catalytic activity/Vol] 14 U/L Critically low 15-37 [facility] Comment on above: Performed By: #### C MREP #### [facility] [address] [address] [address] Dominic Dunn Bilirubin [Mass/Vol] 0.4 mg/dL Normal 0.2-1.0 [facility] Comment on above: Performed By: #### C MREP #### [facility] [address] [place] [address] Dr. Dominic Dunn Calcium [Mass/Vol] 7.5 mg/dL Critically low 8.5-10.1 [facility] Comment on above: Performed By: #### C MREP #### [facility] [address] [place] [address] Dr. Dominic Dunn Chloride [Moles/Vol] 108 mmol/L Critically high 98-107 [facility] Comment on above: Performed By: #### C MREP #### [facility] [address] [place] [address] Dr. Dominic Dunn CO2 [Moles/Vol] 29.2 mmol/L Normal 21.0-32.0 [facility] Comment on above: Performed By: #### C MREP #### [facility] [address] [address] [address] Dominic Dunn Creatinine [Mass/Vol] 0.87 mg/dL Normal 0.70-1.30 [facility] Comment on above: Performed By: #### C MREP #### [facility] [address] [place] [address] Dr. Dominic Dunn EGFR-AF [place]IZ[place] >60 Normal >=60 [facility] Comment on above: Performed By: #### C MREP #### [facility] [address] [place] [address] Dr. Dominic Dunn EGFR-NON AF CITIZEN OF [place] >60 Normal >=60 [facility] Comment on above: Performed By: #### C MREP #### [facility] [address] [place] [address] Dr. Dominic Dunn Globulin (S) [Mass/Vol] 2.7 g/dL Normal [facility] Comment on above: Performed By: #### C MREP #### [facility] [address] [place] [address] Dr. Dominic Dunn Glucose [Mass/Vol] 97 mg/dL Normal 74-106 [facility] Comment on above: Performed By: #### C MREP #### [facility] [address] [place] [address] Dr. Dominic Dunn Potassium [Moles/Vol] 3.5 mmol/L Normal 3.5-5.1 [facility] Comment on above: Performed By: #### C MREP #### [facility] [address] [place] [address] Dr. Dominic Dunn Protein [Mass/Vol] 4.8 g/dL Critically low 6.4-8.2 [facility] Comment on above: Performed By: #### C MREP #### [facility] [address] [place] [address] Dr. Dominic Dunn Sodium [Moles/Vol] 142 mmol/L Normal 136-145 [facility] Comment on above: Performed By: #### C MREP #### [facility] [address] [place] [address] Dr. Dominic Dunn Urea nitrogen [Mass/Vol] 13.0 mg/dL Normal 7.0-18.0 [facility] Comment on above: Performed By: #### C MREP #### [facility] [address] [place] [address] Dr. Dominic Dunn Urea nitrogen/Creatinine [Mass ratio] 14.9 mg/mg Normal [facility] Comment on above: Performed By: #### C MREP #### [facility] [address] [place] [address] Dr. Dominic Dunn CBC W MANUAL DIFFon 06-30-19 ATYPICAL LYMPH # Normal [facility] Comment on above: Performed By: #### L ACT #### [facility] [address] [place] [address] Dr. Dominic Dunn ATYPICAL LYMPH % Normal [facility] Comment on above: Performed By: #### L ACT #### [facility] [address] [place] [address] Dr. Dominic Dunn BAND # 0.0 103/ul Normal 0.0-0.3 [facility] Comment on above: Performed By: #### L ACT #### [facility] [address] [place] [address] Dr. Dominic Dunn BAND % 0 % Normal 0-5 [facility] Comment on above: Performed By: #### L ACT #### [facility] [address] [place] [address] Dr. Dominic Dunn BASOM # 0.00 103/ul Normal 0.00-0.10 [facility] Comment on above: Performed By: #### L ACT #### [facility] [address] [place] [address] Dr. Dominic Dunn BASOM % 0.0 % Critically low 0.2-2.0 [facility] Comment on above: Performed By: #### L ACT #### [facility] [address] [place] [address] Dr. Dominic Dunn BLAST # Normal [facility] Comment on above: Performed By: #### L ACT #### [facility] [address] [place] [address] Dr. Dominic Dunn BLAST % Normal [facility] Comment on above: Performed By: #### L ACT #### [facility] [address] [place] [address] Dr. Dominic Dunn CORRECTED WBC Normal 4.0-11.0 [facility] Comment on above: Performed By: #### L ACT #### [facility] [address] [address] [address] Dominic Dunn EOS # 0.00 103/ul Normal 0.00-0.70 [facility] Comment on above: Performed By: #### L ACT #### [facility] [address] [address] [address] Dominic Dunn EOS% 0.0 % Critically low 0.9-7.0 [facility] Comment on above: Performed By: #### L ACT #### [facility] [address] [address] [address] Dominic Dunn HCT 38.0 % Critically low 42.0-54.0 [facility] Comment on above: Performed By: #### L ACT #### [facility] [address] [address] [address] Dominic Dunn HGB 13.2 g/dl Critically low 14.0-18.0 [facility] Comment on above: Performed By: #### L ACT #### [facility] [address] [address] [address] Dominic Dunn LYMPHM # 0.49 103/ul Critically low 1.20-3.80 [facility] Comment on above: Performed By: #### L ACT #### [facility] [address] [address] [address] Dominic Dunn LYMPHM% 4.0 % Critically low 20.5-60.0 [facility] Comment on above: Performed By: #### L ACT #### [facility] [address] [address] [address] Dominic Dunn MCH 32.8 pg Normal 25.9-34.0 [facility] Comment on above: Performed By: #### L ACT #### [facility] [address] [address] [address] Dominic Dunn MCHC 34.7 g/dl Normal 29.9-35.2 [facility] Comment on above: Performed By: #### L ACT #### [facility] [address] [address] [address] Dominic Dunn MCV 94.5 fL Critically high 80.0-94.0 [facility] Comment on above: Performed By: #### L ACT #### [facility] [address] [place] [address] Dr. Dominic Dunn METAMYELOCYTE # Normal [facility] Comment on above: Performed By: #### L ACT #### [facility] [address] [place] [address] Dr. Dominic Dunn METAMYELOCYTE % Normal [facility] Comment on above: Performed By: #### L ACT #### [facility] [address] [place] [address] Dr. Dominic Dunn MONOM# 0.49 103/ul Normal 0.30-0.80 [facility] Comment on above: Performed By: #### L ACT #### [facility] [address] [place] [address] Dr. Dominic Dunn MONOM% 4.0 % Normal 1.7-12.0 [facility] Comment on above: Performed By: #### L ACT #### [facility] [address] [place] [address] Dr. Dominic Dunn MPV 10.6 fL Normal 9.5-13.5 [facility] Comment on above: Performed By: #### L ACT #### [facility] [address] [place] [address] Dr. Dominic Dunn MYELOCYTE # Normal [facility] Comment on above: Performed By: #### L ACT #### [facility] [address] [place] [address] Dr. Dominic Dunn MYELOCYTE % Normal [facility] Comment on above: Performed By: #### L ACT #### [facility] [address] [place] [address] Dr. Dominic Dunn NRBC Normal [facility] Comment on above: Performed By: #### L ACT #### [facility] [address] [place] [address] Dr. Dominic Dunn PLT 194 103/ul Normal 150-450 [facility] Comment on above: Performed By: #### L ACT #### [facility] [address] [address] [address] Dominic Dunn RBC 4.02 106/ul Critically low 4.70-6.10 [facility] Comment on above: Performed By: #### L ACT #### [facility] [id number] Dominic Dunn RDW 12.2 % Normal 11.0-15.0 [facility] Comment on above: Performed By: #### L ACT #### [facility] [address] [address] [address] Dominic Dunn SEG # 11.32 103/ul Critically high 1.40-6.50 [facility] Comment on above: Performed By: #### L ACT #### [facility] [address] [place] [address] Dr. Dominic Dunn SEG % 92.0 % Critically high 43.0-75.0 [facility] Comment on above: Performed By: #### L ACT #### [facility] [address] [address] [address] Dominic Dunn WBC 12.3 103/ul Critically high 4.0-11.0 [facility] Comment on above: Performed By: #### L ACT #### [facility] [address] [place] [address] Dr. Dominic Dunn PROF 14(COMP METB)on 023 Albumin [Mass/Vol] 2.3 g/dL Critically low 3.4-5.0 [facility] Comment on above: Performed By: #### C MREP #### [facility] [address] [place] [address] Dr. Dominic Dunn Albumin/Globulin [Mass ratio] 0.8 {ratio} Normal [facility] Comment on above: Performed By: #### C MREP #### [facility] [address] [address] [address] Dominic Dunn ALP [Catalytic activity/Vol] 53 U/L Normal 46-116 [facility] Comment on above: Performed By: #### C MREP #### [facility] [address] [address] [address] Dominic Dunn ALT [Catalytic activity/Vol] 22 U/L Normal 16-63 [facility] Comment on above: Performed By: #### C MREP #### [facility] [address] [address] [address] Dominic Dunn Anion gap [Moles/Vol] 8.2 mmol/L Normal [facility] Comment on above: Performed By: #### C MREP #### [facility] [address] [address] [address] Dominic Dunn AST [Catalytic activity/Vol] 18 U/L Normal 15-37 [facility] Comment on above: Performed By: #### C MREP #### [facility] [address] [address] [address] Dominic Dunn Bilirubin [Mass/Vol] 0.4 mg/dL Normal 0.2-1.0 [facility] Comment on above: Performed By: #### C MREP #### [facility] [address] [address] [address] Dominic Dunn Calcium [Mass/Vol] 7.5 mg/dL Critically low 8.5-10.1 [facility] Comment on above: Performed By: #### C MREP #### [facility] [address] [place] [address] Dr. Dominic Dunn Chloride [Moles/Vol] 107 mmol/L Normal 98-107 [facility] Comment on above: Performed By: #### C MREP #### [facility] [address] [address] [address] Dominic Dunn CO2 [Moles/Vol] 29.3 mmol/L Normal 21.0-32.0 [facility] Comment on above: Performed By: #### C MREP #### [facility] [address] [address] [address] Dominic Dunn Creatinine [Mass/Vol] 0.86 mg/dL Normal 0.70-1.30 [facility] Comment on above: Performed By: #### C MREP #### [facility] [address] [place] [address] Dr. Dominic Dunn EGFR-AF [place]IZ[place] >60 Normal >=60 [facility] Comment on above: Performed By: #### C MREP #### [facility] [address] [place] [address] Dr. Dominic Dunn EGFR-NON AF CITIZEN OF [place] >60 Normal >=60 [facility] Comment on above: Performed By: #### C MREP #### [facility] [address] [address] [address] Dominic Dunn Globulin (S) [Mass/Vol] 2.8 g/dL Normal [facility] Comment on above: Performed By: #### C MREP #### [facility] [address] [place] [address] Dr. Dominic Dunn Glucose [Mass/Vol] 133 mg/dL Critically high 74-106 [facility] Comment on above: Performed By: #### C MREP #### [facility] [address] [place] [address] Dr. Dominic Dunn Potassium [Moles/Vol] 3.5 mmol/L Normal 3.5-5.1 [facility] Comment on above: Performed By: #### C MREP #### [facility] [address] [place] [address] Dr. Dominic Dunn Protein [Mass/Vol] 5.1 g/dL Critically low 6.4-8.2 [facility] Comment on above: Performed By: #### C MREP #### [facility] [address] [place] [address] Dr. Dominic Dunn Sodium [Moles/Vol] 141 mmol/L Normal 136-145 [facility] Comment on above: Performed By: #### C MREP #### [facility] [address] [place] [address] Dr. Dominic Dunn Urea nitrogen [Mass/Vol] 11.0 mg/dL Normal 7.0-18.0 [facility] Comment on above: Performed By: #### C MREP #### [facility] [address] [place] [address] Dr. Dominic Dunn Urea nitrogen/Creatinine [Mass ratio] 12.8 mg/mg Normal [facility] Comment on above: Performed By: #### C MREP #### [facility] [address] [place] [address] Dr. Dominic Dunn CBC W MANUAL DIFFon 06-29-19 ATYPICAL LYMPH # 0.13 103/ul Normal [facility] Comment on above: Performed By: #### D DIM #### [facility] [address] [place] [address] Dr. Dominic Dunn ATYPICAL LYMPH % 1 % Normal [facility] Comment on above: Performed By: #### D DIM #### [facility] [address] [place] [address] Dr. Dominic Dunn BAND # 0.0 103/ul Normal 0.0-0.3 [facility] Comment on above: Performed By: #### D DIM #### [facility] [address] [place] [address] Dr. Dominic Dunn BAND % 0 % Normal 0-5 [facility] Comment on above: Performed By: #### D DIM #### [facility] [address] [place] [address] Dr. Dominic Dunn BASOM # 0.00 103/ul Normal 0.00-0.10 [facility] Comment on above: Performed By: #### D DIM #### [facility] [address] [place] [address] Dr. Dominic Dunn BASOM % 0.0 % Critically low 0.2-2.0 [facility] Comment on above: Performed By: #### D DIM #### [facility] [address] [place] [address] Dr. Dominic Dunn BLAST # Normal [facility] Comment on above: Performed By: #### D DIM #### [facility] [address] [place] [address] Dr. Dominic Dunn BLAST % Normal [facility] Comment on above: Performed By: #### D DIM #### [facility] [address] [place] [address] Dr. Dominic Dunn CORRECTED WBC Normal 4.0-11.0 [facility] Comment on above: Performed By: #### D DIM #### [facility] [address] [address] [address] Dominic Dunn EOS # 0.00 103/ul Normal 0.00-0.70 [facility] Comment on above: Performed By: #### D DIM #### [facility] [address] [address] [address] Dominic Dunn EOS% 0.0 % Critically low 0.9-7.0 [facility] Comment on above: Performed By: #### D DIM #### [facility] [address] [address] [address] Dominic Dunn HCT 36.7 % Critically low 42.0-54.0 [facility] Comment on above: Performed By: #### D DIM #### [facility] [address] [place] [address] Dr. Dominic Dunn HGB 12.7 g/dl Critically low 14.0-18.0 [facility] Comment on above: Performed By: #### D DIM #### [facility] [address] [place] [address] Dr. Dominic Dunn LYMPHM # 0.26 103/ul Critically low 1.20-3.80 [facility] Comment on above: Performed By: #### D DIM #### [facility] [address] [address] [address] Dominic Dunn LYMPHM% 2.0 % Critically low 20.5-60.0 [facility] Comment on above: Performed By: #### D DIM #### [facility] [address] [address] [address] Dominic Dunn MCH 32.6 pg Normal 25.9-34.0 [facility] Comment on above: Performed By: #### D DIM #### [facility] [address] [address] [address] Dominic Dunn MCHC 34.6 g/dl Normal 29.9-35.2 [facility] Comment on above: Performed By: #### D DIM #### [facility] [address] [place] [address] Dr. Dominic Dunn MCV 94.3 fL Critically high 80.0-94.0 [facility] Comment on above: Performed By: #### D DIM #### [facility] [address] [place] [address] Dr. Dominic Dunn METAMYELOCYTE # Normal [facility] Comment on above: Performed By: #### D DIM #### [facility] [address] [place] [address] Dr. Dominic Dunn METAMYELOCYTE % Normal [facility] Comment on above: Performed By: #### D DIM #### [facility] [address] [place] [address] Dr. Dominic Dunn MONOM# 0.13 103/ul Critically low 0.30-0.80 [facility] Comment on above: Performed By: #### D DIM #### [facility] [address] [place] [address] Dr. Dominic Dunn MONOM% 1.0 % Critically low 1.7-12.0 [facility] Comment on above: Performed By: #### D DIM #### [facility] [address] [place] [address] Dr. Dominic Dunn MPV 10.3 fL Normal 9.5-13.5 [facility] Comment on above: Performed By: #### D DIM #### [facility] [address] [place] [address] Dr. Dominic Dunn MYELOCYTE # Normal [facility] Comment on above: Performed By: #### D DIM #### [facility] [address] [place] [address] Dr. Dominic Dunn MYELOCYTE % Normal [facility] Comment on above: Performed By: #### D DIM #### [facility] [address] [place] [address] Dr. Dominic Dunn NRBC Normal [facility] Comment on above: Performed By: #### D DIM #### [facility] [address] [place] [address] Dr. Dominic Dunn PLT 167 103/ul Normal 150-450 [facility] Comment on above: Performed By: #### D DIM #### [facility] [address] [address] [address] Dominic Dunn RBC 3.89 106/ul Critically low 4.70-6.10 [facility] Comment on above: Performed By: #### D DIM #### [facility] [address] [address] [address] Dominic Dunn RDW 12.4 % Normal 11.0-15.0 [facility] Comment on above: Performed By: #### D DIM #### [facility] [address] [address] [address] Dominic Dunn SEG # 12.38 103/ul Critically high 1.40-6.50 [facility] Comment on above: Performed By: #### D DIM #### [facility] [address] [address] [address] Dominic Dunn SEG % 96.0 % Critically high 43.0-75.0 [facility] Comment on above: Performed By: #### D DIM #### [facility] [address] [address] [address] Dominic Dunn WBC 12.9 103/ul Critically high 4.0-11.0 [facility] Comment on above: Performed By: #### D DIM #### [facility] [address] [address] [address] Dominic Dunn CULTURE OTHERon 06-29-2022 CULTURE OTHER Culture Observations: NORMAL RESPIRATORY DUSTIN. Normal [facility] Comment on above: Performed By: #### O THCX #### [facility] [address] [address] [address] Dominic Dunn CYTOLOGYon 06-29-2022 SENT TO REF LAB 06/30/22 Normal [facility] Comment on above: Performed By: #### C YTO #### [facility] [address] [address] [address] Dominic Dunn ECHOCARDIO M/2D COMPLETEon 0 06-29-2022 ECHOCARDIO M/2D COMPLETE Patient: CHRIS SPARKS Exam Date: 06/29/2022 : 1985 Gender:M Ordering : LICO LANGSTON . Admission #: [id number] Family : Order #: [id number] CLICK HERE TO VIEW EXAM ECHOCARDIOGRAM REPORT [...] Grijalva M.D. on 06/29/2022 at 16:36 Normal [facility] GRAM STAINon 06-29-2022 COMMENTS NO ORGANISMS OBSERVED Normal [facility] Comment on above: Performed By: #### C MREP #### [facility] [address] [place] [address] Dr. Dominic Dunn DIPHTHEROIDS Normal [facility] Comment on above: Performed By: #### C MREP #### [facility] [address] [place] [address] Dr. Dominic Dunn EPITHELIALS Normal [facility] Comment on above: Performed By: #### C MREP #### [facility] [address] [place] [address] Dr. Dominic Dunn FUNGAL ELEMENTS Normal [facility] Comment on above: Performed By: #### C MREP #### [facility] [address] [place] [address] Dr. Dominic NICHOLE NEG BACILLI Normal [facility] Comment on above: Performed By: #### C MREP #### [facility] [address] [place] [address] Dr. Dominic NICHOLE NEG DIPPLOCOCCI Normal [facility] Comment on above: Performed By: #### C MREP #### [facility] [address] [place] [address] Dr. Dominic Dunn GRAM POS BACILLI Normal [facility] Comment on above: Performed By: #### C MREP #### [facility] [address] [place] [address] Dr. Dominic Dunn GRAM POSITIVE COCCI Normal [facility] Comment on above: Performed By: #### C MREP #### [facility] [address] [address] [address] Dominic Dunn GRAM STAIN SOURCE Rt Lower Lobe Lavage [facility] Comment on above: Performed By: #### C MREP #### [facility] [address] [place] [address] Dr. Dominic Dunn GS_DIPTH [facility] Comment on above: Performed By: #### C MREP #### [facility] [address] [place] [address] Dr. Dominic Dunn WBC MANY Normal [facility] Comment on above: Performed By: #### C MREP #### [facility] [address] [place] [address] Dr. Dominic Dunn PROF 14(COMP METB)on 023 Albumin [Mass/Vol] 2.3 g/dL Critically low 3.4-5.0 [facility] Comment on above: Performed By: #### D DIM #### [facility] [address] [place] [address] Dr. Dominic Dunn Albumin/Globulin [Mass ratio] 0.8 {ratio} [facility] Comment on above: Performed By: #### D DIM #### [facility] [address] [place] [address] Dr. Dominic Dunn ALP [Catalytic activity/Vol] 49 U/L Normal 46-116 [facility] Comment on above: Performed By: #### D DIM #### [facility] [address] [place] [address] Dr. Dominic Dunn ALT [Catalytic activity/Vol] 20 U/L Normal 16-63 [facility] Comment on above: Performed By: #### D DIM #### [facility] [address] [place] [address] Dr. Dominic Dunn Anion gap [Moles/Vol] 11.5 mmol/L Normal [facility] Comment on above: Performed By: #### D DIM #### [facility] [address] [address] [address] Dominic Dunn AST [Catalytic activity/Vol] 18 U/L Normal 15-37 [facility] Comment on above: Performed By: #### D DIM #### [facility] [address] [address] [address] Dominic Dunn Bilirubin [Mass/Vol] 0.4 mg/dL Normal 0.2-1.0 [facility] Comment on above: Performed By: #### D DIM #### [facility] [address] [place] [address] Dr. Dominic Dunn Calcium [Mass/Vol] 7.5 mg/dL Critically low 8.5-10.1 [facility] Comment on above: Performed By: #### D DIM #### [facility] [address] [address] [address] Dominic Dunn Chloride [Moles/Vol] 108 mmol/L Critically high 98-107 [facility] Comment on above: Performed By: #### D DIM #### [facility] [address] [place] [address] Dr. Dominic Dunn CO2 [Moles/Vol] 26.8 mmol/L Normal 21.0-32.0 [facility] Comment on above: Performed By: #### D DIM #### [facility] [address] [address] [address] Dominic Dunn Creatinine [Mass/Vol] 0.88 mg/dL Normal 0.70-1.30 [facility] Comment on above: Performed By: #### D DIM #### [facility] [address] [place] [address] Dr. Dominic Dunn EGFR-AF [place] >60 Normal >=60 [facility] Comment on above: Performed By: #### D DIM #### [facility] [address] [address] [address] Dominic Dunn EGFR-NON AF [place] >60 Normal >=60 [facility] Comment on above: Performed By: #### D DIM #### [facility] [address] [address] [address] Dominic Dunn Globulin (S) [Mass/Vol] 2.8 g/dL Normal [facility] Comment on above: Performed By: #### D DIM #### [facility] [address] [address] [address] Dominic Dunn Glucose [Mass/Vol] 149 mg/dL Critically high 74-106 [facility] Comment on above: Performed By: #### D DIM #### [facility] [address] [address] [address] Dominic Dunn Potassium [Moles/Vol] 3.3 mmol/L Critically low 3.5-5.1 [facility] Comment on above: Performed By: #### D DIM #### [facility] [address] [address] [address] Dominci Dunn Protein [Mass/Vol] 5.1 g/dL Critically low 6.4-8.2 [facility] Comment on above: Performed By: #### D DIM #### [facility] [address] [address] [address] Dominic Dunn Sodium [Moles/Vol] 143 mmol/L Normal 136-145 [facility] Comment on above: Performed By: #### D DIM #### [facility] [address] [address] [address] Dominic Dunn Urea nitrogen [Mass/Vol] 8.0 mg/dL Normal 7.0-18.0 [facility] Comment on above: Performed By: #### D DIM #### [facility] [address] [address] [address] Dominic Dunn Urea nitrogen/Creatinine [Mass ratio] 9.1 mg/mg Normal [facility] Comment on above: Performed By: #### D DIM #### [facility] [address] [address] [address] Dominic Dunn VANCOMYCIN TROUGHon 06-29-19 23 VANCOMYCIN TROUGH 26.9 ug/ml Critically high 5.0-20.0 [facility] Comment on above: Performed By: #### C MREP #### [facility] [address] [address] [address] Dominic Dunn CBC AUTO DIFFon 06-28-2022 BASO # 0.0 103/ul Normal 0.0-0.1 [facility] Comment on above: Performed By: #### L ACT #### [facility] [address] [place] [address] Dr. Dominic Dunn Basophils/100 WBC (Bld) 0.1 % Critically low 0.2-2.0 [facility] Comment on above: Performed By: #### L ACT #### [facility] [address] [place] [address] Dr. Dominic Dunn EO # 0.0 103/ul Normal 0.0-0.7 [facility] Comment on above: Performed By: #### L ACT #### [facility] [address] [place] [address] Dr. Dominic Dunn Eosinophils/100 WBC (Bld) 0.0 % Critically low 0.9-7.0 [facility] Comment on above: Performed By: #### L ACT #### [facility] [address] [place] [address] Dr. Dominic Dunn Erythrocyte distribution width (RBC) [Ratio] 12.0 % Normal 11.0-15.0 [facility] Comment on above: Performed By: #### L ACT #### [facility] [address] [place] [address] Dr. Dominic Dunn Hematocrit (Bld) [Volume fraction] 41.5 % Critically low 42.0-54.0 [facility] Comment on above: Performed By: #### L ACT #### [facility] [address] [place] [address] Dr. Dominic Dunn Hemoglobin (Bld) [Mass/Vol] 14.5 g/dL Normal 14.0-18.0 [facility] Comment on above: Performed By: #### L ACT #### [facility] [address] [place] [address] Dr. Dominic Dunn IG # 0.07 10e3/ul Critically high 0.00-0.03 [facility] Comment on above: Performed By: #### L ACT #### [facility] [address] [place] [address] Dr. Dominic Dunn IG % 0.5 % Normal 0.0-0.5 [facility] Comment on above: Performed By: #### L ACT #### [facility] [address] [address] [address] Dominic Dunn LYMPH # 0.7 103/ul Critically low 1.2-3.8 [facility] Comment on above: Performed By: #### L ACT #### [facility] [address] [place] [address] Dr. Dominic Dunn Lymphocytes/100 WBC (Bld) 4.6 % Critically low 20.5-60.0 [facility] Comment on above: Performed By: #### L ACT #### [facility] [address] [place] [address] Dr. Dominic Dunn MANUAL DIFF REQ NO Normal [facility] Comment on above: Performed By: #### L ACT #### [facility] [address] [place] [address] Dr. Dominic Dunn MCH (RBC) [Entitic mass] 32.7 pg Normal 25.9-34.0 [facility] Comment on above: Performed By: #### L ACT #### [facility] [address] [place] [address] Dr. Dominic Dunn MCHC (RBC) [Mass/Vol] 34.9 g/dL Normal 29.9-35.2 [facility] Comment on above: Performed By: #### L ACT #### [facility] [address] [place] [address] Dr. Dominic Dunn MCV (RBC) [Entitic vol] 93.7 fL Normal 80.0-94.0 [facility] Comment on above: Performed By: #### L ACT #### [facility] [address] [place] [address] Dr. Dominic Dunn MONO # 0.5 103/ul Normal 0.3-0.8 [facility] Comment on above: Performed By: #### L ACT #### [facility] [address] [address] [address] Dominic Dunn Monocytes/100 WBC (Bld) 3.3 % Normal 1.7-12.0 [facility] Comment on above: Performed By: #### L ACT #### [facility] [address] [address] [address] Dominic Dunn NEUT # 13.5 103/ul Critically high 1.4-6.5 [facility] Comment on above: Performed By: #### L ACT #### [facility] [address] [address] [address] Dominic Dunn Neutrophils/100 WBC (Bld) 91.5 % Critically high 43.0-75.0 [facility] Comment on above: Performed By: #### L ACT #### [facility] [address] [place] [address] Dr. Dominic Dunn Platelet mean volume (Bld) [Entitic vol] 10.1 fL Normal 9.5-13.5 [facility] Comment on above: Performed By: #### L ACT #### [facility] [address] [place] [address] Dr. Dominic Dunn PLT 157 103/ul Normal 150-450 [facility] Comment on above: Performed By: #### L ACT #### [facility] [address] [place] [address] Dr. Dominic Dunn RBC 4.43 106/ul Critically low 4.70-6.10 [facility] Comment on above: Performed By: #### L ACT #### [facility] [address] [place] [address] Dr. Dominic Dunn WBC 14.7 103/ul Critically high 4.0-11.0 [facility] Comment on above: Performed By: #### L ACT #### [facility] [address] [place] [address] Dr. Dominic Dunn CULTURE BLOODon 06-28-2022 Microscopic examination of blood, culture Culture Observations: NO GROWTH AT 5 DAYS. Normal [facility] - [place] Comment on above: Performed By: #### L ACT #### [facility] [address] [place] [address] Dr. Dominic Dunn Microscopic examination of blood, culture Culture Observations: NO GROWTH AT 5 DAYS. Normal [facility] Comment on above: Performed By: #### B [id number] #### [facility] [address] [place] [address] Dr. Dominic Dunn LACTATE/LACTIC ACIDon 2022 Lactate [Moles/Vol] 2.3 mmol/L Critically high 0.4-1.9 [facility] Comment on above: Performed By: #### L ACT #### [facility] [address] [place] [address] Dr. Dominic Dunn Lactate [Moles/Vol] 6.1 mmol/L Critically high 0.4-1.9 [facility] Comment on above: Performed By: #### D DIM #### [facility] [address] [place] [address] Dr. Dominic Dunn Lactate [Moles/Vol] 5.4 mmol/L Critically high 0.4-1.9 [facility] Comment on above: Performed By: #### C MREP #### [facility] [facility] [address] [place] [address] Dr. Dominic Dunn PROF 14(COMP METB)on 023 Albumin [Mass/Vol] 2.7 g/dL Critically low 3.4-5.0 [facility] Comment on above: Performed By: #### D DIM #### [facility] [facility] [address] [place] [address] Dr. Dominic Dunn Albumin/Globulin [Mass ratio] 0.9 {ratio} Normal [facility] Comment on above: Performed By: #### D DIM #### [facility] [place] [facility] [address] [place] [address] Dr. Dominic Dunn ALP [Catalytic activity/Vol] 58 U/L Normal 46-116 [facility] Comment on above: Performed By: #### D DIM #### [facility] [place] [facility] [address] [place] [address] Dr. Dominic Dunn ALT [Catalytic activity/Vol] 20 U/L Normal 16-63 [facility] Comment on above: Performed By: #### D DIM #### [facility] [place] [facility] [address] [address] [address] Dominic Dunn Anion gap [Moles/Vol] 11.8 mmol/L Normal [facility] Comment on above: Performed By: #### D DIM #### [facility] [place] [facility] [address] [address] [address] Dominic Dunn AST [Catalytic activity/Vol] 16 U/L Normal 15-37 [facility] Comment on above: Performed By: #### D DIM #### [facility] [place] [facility] [address] [address] [address] Dominic Dunn Bilirubin [Mass/Vol] 0.5 mg/dL Normal 0.2-1.0 [facility] Comment on above: Performed By: #### D DIM #### [facility] [place] [facility] [address] [address] [address] Dominic Dunn Calcium [Mass/Vol] 7.8 mg/dL Critically low 8.5-10.1 [facility] Comment on above: Performed By: #### D DIM #### [facility] [place] [facility] [address] [place] [address] Dr. Dominic Dunn Chloride [Moles/Vol] 107 mmol/L Normal 98-107 [facility] Comment on above: Performed By: #### D DIM #### [facility] [place] [facility] [address] [address] [address] Dominic Dunn CO2 [Moles/Vol] 25.7 mmol/L Normal 21.0-32.0 [facility] Comment on above: Performed By: #### D DIM #### [facility] [place] [facility] [address] [address] [address] Dominic Dunn Creatinine [Mass/Vol] 0.86 mg/dL Normal 0.70-1.30 [facility] Comment on above: Performed By: #### D DIM #### [facility] [place] [address] [address] [address] Dominic Dunn EGFR-AF [place]IZ[place] >60 Normal >=60 [facility] Comment on above: Performed By: #### D DIM #### [facility] [place] [facility] [address] [address] [address] Dominic Dunn EGFR-NON AF CITIZEN OF [place] >60 Normal >=60 [facility] Comment on above: Performed By: #### D DIM #### [facility] [place] [facility] [address] [address] [address] Dominic Dunn Globulin (S) [Mass/Vol] 3.1 g/dL Normal [facility] Comment on above: Performed By: #### D DIM #### [facility] [place] [address] [address] [address] Dominic Dunn Glucose [Mass/Vol] 144 mg/dL Critically high 74-106 T [facility] Comment on above: Performed By: #### D DIM #### [facility] [place] [facility] [address] [address] [address] Dominic Dunn Potassium [Moles/Vol] 3.5 mmol/L Normal 3.5-5.1 [facility] Comment on above: Performed By: #### D DIM #### [facility] [facility] [address] [address] [address] Dominic Dunn Protein [Mass/Vol] 5.8 g/dL Critically low 6.4-8.2 [facility] Comment on above: Performed By: #### D DIM #### [facility] [address] [address] [address] Dominic Dunn Sodium [Moles/Vol] 141 mmol/L Normal 136-145 [facility] Comment on above: Performed By: #### D DIM #### [facility] [place] [facility] [address] [address] [address] Dominic Dunn Urea nitrogen [Mass/Vol] 7.0 mg/dL Normal 7.0-18.0 [facility] Comment on above: Performed By: #### D DIM #### [facility] [place] [facility] [address] [address] [address] Dominic Dunn Urea nitrogen/Creatinine [Mass ratio] 8.1 mg/mg Normal [facility] Comment on above: Performed By: #### D DIM #### [facility] [address] [place] [address] Dr. Dominic Dunn XR CHEST 2 Von [...] by: RENARD MAGAÑA Date: 2022-06-28 16:52 Normal [facility] AMYLASEon 06-27-2022 Amylase [Catalytic activity/Vol] 49 U/L Normal 25-115 [facility] Comment on above: Performed By: #### D DIM #### [facility] [address] [place] [address] Dr. Dominic Dunn CARDIAC RAJI 3-6on 3 CK [Catalytic activity/Vol] 149 U/L Normal 39-308 [facility] Comment on above: Performed By: #### C MREP #### [facility] [address] [place] [address] Dr. Dominic Dunn CK.MB [Mass/Vol] ng/mL Normal <=3.60 [facility] Comment on above: Performed By: #### C MREP #### [facility] [place] [facility] [address] [place] [address] Dr. Dominic Dunn HSTROP 12.5 pg/mL Normal 4.0-76.1 [facility] Comment on above: Result Comment: CUT- OFF POINTS HAVE BEEN ESTABLISHED BASED ON THE FOURTH UNIVERSAL DEFINITIONS OF MYOCARDIAL INFARCTION. THE UPPER REFERENCE LIMIT (URL) OF TROPONIN, DEFINED THE 99TH PERCENTILE OF cTnI DISTRIBUTION IN A REFERENCE POPULATION, HAS BEEN CONFIRMED THE DECISION THRESHOLD FOR [place] DIAGNOSIS. Performed By: #### C MREP #### [facility] [place] [facility] [address] [place] [address] Dr. Dominic Dunn CK [Catalytic activity/Vol] 115 U/L Normal 39-308 [facility] Comment on above: Performed By: #### C MREP #### [facility] [place] [facility] [address] [address] [address] Dominic Dunn HSTROP 5.4 pg/mL Normal 4.0-76.1 [facility] [place] Comment on above: Result Comment: CUT- OFF POINTS HAVE BEEN ESTABLISHED BASED ON THE FOURTH UNIVERSAL DEFINITIONS OF MYOCARDIAL INFARCTION. THE UPPER REFERENCE LIMIT (URL) OF TROPONIN, DEFINED THE 99TH PERCENTILE OF cTnI DISTRIBUTION IN A REFERENCE POPULATION, HAS BEEN CONFIRMED THE DECISION THRESHOLD FOR [place] DIAGNOSIS. Performed By: #### C MREP #### [facility] [place] [facility] [address] [address] [address] Dominic Dunn CARDIAC RAJI ADMITon 023 CK [Catalytic activity/Vol] 132 U/L Normal 39-308 [facility] Comment on above: Performed By: #### D DIM #### [facility] [place] [facility] [address] [address] [address] Dominic Dunn CK.MB [Mass/Vol] 0.24 ng/mL Normal <=3.60 [facility] Comment on above: Performed By: #### D DIM #### [facility] [place] [facility] [address] [address] [address] Dominic Dunn HSTROP 4.4 pg/mL Normal 4.0-76.1 [facility] Comment on above: Result Comment: CUT- OFF POINTS HAVE BEEN ESTABLISHED BASED ON THE FOURTH UNIVERSAL DEFINITIONS OF MYOCARDIAL INFARCTION. THE UPPER REFERENCE LIMIT (URL) OF TROPONIN, DEFINED THE 99TH PERCENTILE OF cTnI DISTRIBUTION IN A REFERENCE POPULATION, HAS BEEN CONFIRMED THE DECISION THRESHOLD FOR [place] DIAGNOSIS. Performed By: #### D DIM #### [facility] [place] [facility] [address] [address] [address] Dominic Dunn MONTY 100 ng/mL Critically high 16-96 [facility] Comment on above: Performed By: #### D DIM #### [facility] [place] [facility] [address] [address] [address] Dominic Dunn CBC AUTO DIFFon 06-27-2022 BASO # 0.0 103/ul Normal 0.0-0.1 [facility] Comment on above: Performed By: #### C MREP #### [facility] [facility] [address] [place] [address] Dr. Dominic Dunn Basophils/100 WBC (Bld) 0.2 % Normal 0.2-2.0 [facility] Comment on above: Performed By: #### C MREP #### [facility] [place] [facility] [address] [place] [address] Dr. Dominic Dunn EO # 0.0 103/ul Normal 0.0-0.7 [facility] Comment on above: Performed By: #### C MREP #### [facility] [facility] [address] [place] [address] Dr. Dominic Dunn Eosinophils/100 WBC (Bld) 0.0 % Critically low 0.9-7.0 [facility] Comment on above: Performed By: #### C MREP #### [facility] [address] [place] [address] Dr. Dominic Dunn Erythrocyte distribution width (RBC) [Ratio] 11.7 % Normal 11.0-15.0 [facility] Comment on above: Performed By: #### C MREP #### [facility] [address] [place] [address] Dr. Dominic Dunn Hematocrit (Bld) [Volume fraction] 47.3 % Normal 42.0-54.0 [facility] Comment on above: Performed By: #### C MREP #### [facility] [facility] [address] [place] [address] Dr. Dominic Dunn Hemoglobin (Bld) [Mass/Vol] 16.6 g/dL Normal 14.0-18.0 [facility] Comment on above: Performed By: #### C MREP #### [facility] [place] [facility] [address] [place] [address] Dr. Dominic Dunn IG # 0.02 10e3/ul Normal 0.00-0.03 [facility] Comment on above: Performed By: #### C MREP #### [facility] [address] [place] [address] Dr. Dominic Dunn IG % 0.2 % Normal 0.0-0.5 [facility] Comment on above: Performed By: #### C MREP #### [facility] [address] [address] [address] Dominic Dunn LYMPH # 0.4 103/ul Critically low 1.2-3.8 [facility] Comment on above: Performed By: #### C MREP #### [facility] [address] [address] [address] Dominic Dunn Lymphocytes/100 WBC (Bld) 4.1 % Critically low 20.5-60.0 [facility] Comment on above: Performed By: #### C MREP #### [facility] [address] [address] [address] Dominic Dunn MANUAL DIFF REQ NO Normal [facility] Comment on above: Performed By: #### C MREP #### [facility] [address] [place] [address] Dr. Dominic Dunn MCH (RBC) [Entitic mass] 32.4 pg Normal 25.9-34.0 [facility] Comment on above: Performed By: #### C MREP #### [facility] [address] [place] [address] Dr. Dominic Dunn MCHC (RBC) [Mass/Vol] 35.1 g/dL Normal 29.9-35.2 [facility] Comment on above: Performed By: #### C MREP #### [facility] [address] [address] [address] Dominic Dunn MCV (RBC) [Entitic vol] 92.4 fL Normal 80.0-94.0 [facility] Comment on above: Performed By: #### C MREP #### [facility] [address] [address] [address] Dominic Dunn MONO # 0.9 103/ul Critically high 0.3-0.8 [facility] Comment on above: Performed By: #### C MREP #### [facility] [address] [address] [address] Dominic Dunn Monocytes/100 WBC (Bld) 8.8 % Normal 1.7-12.0 [facility] Comment on above: Performed By: #### C MREP #### [facility] [facility] [address] [address] [address] Dominic Dunn NEUT # 8.4 103/ul Critically high 1.4-6.5 [facility] Comment on above: Performed By: #### C MREP #### [facility] [facility] [address] [address] [address] Dominic Dunn Neutrophils/100 WBC (Bld) 86.7 % Critically high 43.0-75.0 [facility] Comment on above: Performed By: #### C MREP #### [facility] [address] [address] [address] Dominic Dunn Platelet mean volume (Bld) [Entitic vol] 10.1 fL Normal 9.5-13.5 [facility] Comment on above: Performed By: #### C MREP #### [facility] [address] [address] [address] Dominic Dunn PLT 144 103/ul Critically low 150-450 [facility] Comment on above: Performed By: #### C MREP #### [facility] [address] [address] [address] Dominic Dunn RBC 5.12 106/ul Normal 4.70-6.10 [facility] Comment on above: Performed By: #### C MREP #### [facility] [address] [address] [address] Dominic Dunn WBC 9.7 103/ul Normal 4.0-11.0 [facility] Comment on above: Performed By: #### C MREP #### [facility] [address] [address] [address] Dominic Dunn CTA CHEST WO W [...] by: SEGUNDO AMBRIZ Date: 2022-06-27 11:08 Normal [facility] CULTURE BLOODon 06-27-2022 Microscopic examination of blood, culture Culture Observations: NO GROWTH AT 5 DAYS. Normal [facility] Comment on above: Performed By: #### B [id number] #### [facility] [address] [place] [address] Dr. Dominic Dunn Microscopic examination of blood, culture Culture Observations: NO GROWTH AT 5 DAYS. Normal [facility] Comment on above: Performed By: #### L ACT #### [facility] [address] [place] [address] Dr. Dominic Dunn D-DIMERon 06-27-2022 D-DIMER 0.46 mg/L FEU Normal <=0.59 [facility] Comment on above: Performed By: #### D DIM #### [facility] [address] [place] [address] Dr. Dominic Dunn D-DIMER COMMENTS SEE BELOW Normal [facility] Comment on above: Result Comment: Incr eases [...] hospitalization. Performed By: #### D DIM #### [facility] [address] [place] [address] Dr. Dominic Dunn ER URINE PROFILEon 3 Bilirubin Ql (U) Negative Normal NEGATIVE [facility] Comment on above: Performed By: #### C MREP #### [facility] [address] [place] [address] Dr. Dominic Dunn Clarity (U) CLEAR Normal CLEAR [facility] Comment on above: Performed By: #### C MREP #### [facility] [address] [place] [address] Dr. Dominic Dunn Color (U) YELLOW Normal YELLOW [facility] Comment on above: Performed By: #### C MREP #### [facility] [address] [place] [address] Dr. Dominic HARDY A micrscopic examination will be performed if indicated. Normal [facility] Comment on above: Performed By: #### C MREP #### [facility] [address] [place] [address] Dr. Dominic Dunn Glucose Ql (U) Negative Normal NEGATIVE [facility] Comment on above: Performed By: #### C MREP #### [facility] [address] [place] [address] Dr. Dominic Dunn Hemoglobin Ql (U) Negative Normal NEGATIVE [facility] Comment on above: Performed By: #### C MREP #### [facility] [address] [place] [address] Dr. Dominic Dunn Ketones Ql (U) TRACE Abnormal NEGATIVE [facility] Comment on above: Performed By: #### C MREP #### [facility] [address] [place] [address] Dr. Dominic Dunn LEUKOCYTES Negative Normal NEGATIVE [facility] Comment on above: Performed By: #### C MREP #### [facility] [address] [place] [address] Dr. Dominic Dunn Nitrite Ql (U) Negative Normal NEGATIVE [facility] Comment on above: Performed By: #### C MREP #### [facility] [address] [place] [address] Dr. Dominic Dunn pH (U) 6.0 [pH] Normal 5-9 [facility] Comment on above: Performed By: #### C MREP #### [facility] [address] [place] [address] Dr. Dominic Dunn SPEC GRAVITY 1.010 Normal 1.005-<=1.02 5 [facility] Comment on above: Performed By: #### C MREP #### [facility] [address] [place] [address] Dr. Dominic Dunn UA PROTEIN TRACE Normal NEGATIVE/ TRACE [facility] Comment on above: Performed By: #### C MREP #### [facility] [address] [place] [address] Dr. Dominic Dunn UR MICRO IND NOT INDICATED Normal [facility] Comment on above: Performed By: #### C MREP #### [facility] [address] [place] [address] Dr. Dominic Dunn Urobilinogen Qn (U) 0.2 {Antonina'U}/dL Normal 0.2 - 1. 0 [facility] Comment on above: Performed By: #### C MREP #### [facility] [address] [place] [address] Dr. Dominic Dunn LACTATE/LACTIC ACIDon 2022 Lactate [Moles/Vol] 1.9 mmol/L Normal 0.4-1.9 [facility] Comment on above: Performed By: #### L ACT #### [facility] [address] [place] [address] Dr. Dominic Dunn Lactate [Moles/Vol] 0.8 mmol/L Normal 0.4-1.9 [facility] Comment on above: Performed By: #### D DIM #### [facility] [address] [place] [address] Dr. Dominic Dunn LIPASEon 06-27-2022 Lipase [Catalytic activity/Vol] 42.0 U/L Critically low 73.0-393.0 [facility] Comment on above: Performed By: #### D DIM #### [facility] [address] [place] [address] Dr. Dominic Dunn PROF 14(COMP METB)on 023 Albumin [Mass/Vol] 3.6 g/dL Normal 3.4-5.0 [facility] Comment on above: Performed By: #### D DIM #### [facility] [address] [place] [address] Dr. Dominic Dunn Albumin/Globulin [Mass ratio] 1.0 {ratio} Normal [facility] Comment on above: Performed By: #### D DIM #### [facility] [address] [place] [address] Dr. Dominic Dunn ALP [Catalytic activity/Vol] 71 U/L Normal 46-116 [facility] Comment on above: Performed By: #### D DIM #### [facility] [address] [place] [address] Dr. Dominic Dunn ALT [Catalytic activity/Vol] 22 U/L Normal 16-63 [facility] Comment on above: Performed By: #### D DIM #### [facility] [address] [place] [address] Dr. Dominic Dunn Anion gap [Moles/Vol] 12.1 mmol/L Normal [facility] Comment on above: Performed By: #### D DIM #### [facility] [address] [place] [address] Dr. Dominic Dunn AST [Catalytic activity/Vol] 19 U/L Normal 15-37 [facility] Comment on above: Performed By: #### D DIM #### [facility] [address] [address] [address] Dominic Dunn Bilirubin [Mass/Vol] 0.8 mg/dL Normal 0.2-1.0 [facility] Comment on above: Performed By: #### D DIM #### [facility] [address] [place] [address] Dr. Dominic Dunn Calcium [Mass/Vol] 8.4 mg/dL Critically low 8.5-10.1 [facility] Comment on above: Performed By: #### D DIM #### [facility] [address] [address] [address] Dominic Dunn Chloride [Moles/Vol] 103 mmol/L Normal 98-107 [facility] Comment on above: Performed By: #### D DIM #### [facility] [address] [place] [address] Dr. Dominic Dunn CO2 [Moles/Vol] 26.5 mmol/L Normal 21.0-32.0 [facility] Comment on above: Performed By: #### D DIM #### [facility] [address] [place] [address] Dr. Dominic Dunn Creatinine [Mass/Vol] 1.22 mg/dL Normal 0.70-1.30 [facility] Comment on above: Performed By: #### D DIM #### [facility] [address] [place] [address] Dr. Dominic Dunn EGFR-AF [place]IZ[place] >60 Normal >=60 [facility] Comment on above: Performed By: #### D DIM #### [facility] [address] [place] [address] Dr. Dominic Dunn EGFR-NON AF [place]IZ[place] >60 Normal >=60 [facility] Comment on above: Performed By: #### D DIM #### [facility] [address] [place] [address] Dr. Dominic Dunn Globulin (S) [Mass/Vol] 3.6 g/dL Normal [facility] Comment on above: Performed By: #### D DIM #### [facility] [address] [place] [address] Dr. Dominic uDnn Glucose [Mass/Vol] 121 mg/dL Critically high 74-106 [facility] Comment on above: Performed By: #### D DIM #### [facility] [address] [place] [address] Dr. Dominic Dunn Potassium [Moles/Vol] 3.6 mmol/L Normal 3.5-5.1 [facility] Comment on above: Performed By: #### D DIM #### [facility] [address] [place] [address] Dr. Dominic Dunn Protein [Mass/Vol] 7.2 g/dL Normal 6.4-8.2 [facility] Comment on above: Performed By: #### D DIM #### [facility] [address] [place] [address] Dr. Dominic Dunn Sodium [Moles/Vol] 138 mmol/L Normal 136-145 [facility] Comment on above: Performed By: #### D DIM #### [facility] [address] [place] [address] Dr. Dominic Dunn Urea nitrogen [Mass/Vol] 6.0 mg/dL Critically low 7.0-18.0 [facility] Comment on above: Performed By: #### D DIM #### [facility] [address] [place] [address] Dr. Dominic Dunn Urea nitrogen/Creatinine [Mass ratio] 4.9 mg/mg Normal [facility] Comment on above: Performed By: #### D DIM #### [facility] [address] [place] [address] Dr. Dominic Dunn RESPIRATORY PANEL PLUSon Adenovirus Not detected Normal NOT DETECTED [facility] Comment on above: Performed By: #### L ACT #### [facility] [address] [place] [address] Dr. Dominic Dunn B. Parapertusis Not detected Normal NOT DETECTED [facility] Comment on above: Performed By: #### L ACT #### [facility] [address] [place] [address] Dr. Dominic Dunn B. Pertussis Not detected Normal NOT DETECTED [facility] Comment on above: Performed By: #### L ACT #### [facility] [address] [place] [address] Dr. Dominic Dunn Chlamydia Pneumoniae Not detected Normal NOT DETECTED [facility] Comment on above: Performed By: #### L ACT #### [facility] [address] [place] [address] Dr. Dominic Dunn Coronavirus 229E Not detected Normal NOT DETECTED The [facility] Comment on above: Performed By: #### L ACT #### [facility] [address] [address] [address] Dominic Dunn Coronavirus HKU1 Not detected Normal NOT DETECTED The [facility] Comment on above: Performed By: #### L ACT #### [facility] [address] [place] [address] Dr. Dominic Dunn Coronavirus NL63 Not detected Normal NOT DETECTED The [facility] Comment on above: Performed By: #### L ACT #### [facility] [address] [place] [address] Dr. Dominic Dunn Coronavirus OC43 Not detected Normal NOT DETECTED The [facility] Comment on above: Performed By: #### L ACT #### [facility] [address] [place] [address] Dr. Dominic Dunn Influenza A H1 Not detected Normal NOT DETECTED The [facility] Comment on above: Performed By: #### L ACT #### [facility] [address] [place] [address] Dr. Dominic Dunn Influenza A H1 2009 Not detected Normal NOT DETECTED [facility] Comment on above: Performed By: #### L ACT #### [facility] [address] [place] [address] Dr. Dominic Dunn Influenza A H3 Not detected Normal NOT DETECTED The [facility] Comment on above: Performed By: #### L ACT #### [facility] [address] [place] [address] Dr. Dominic Dunn Influenza B Not detected Normal NOT DETECTED The [facility] Comment on above: Performed By: #### L ACT #### [facility] [address] [place] [address] Dr. Dominic Dunn Metapneumovirus Detected Abnormal NOT DETECTED [facility] Comment on above: Performed By: #### L ACT #### [facility] [address] [address] [address] Dominic Monterooplas. Pneumoniae Not detected Normal NOT DETECTED [facility] Comment on above: Performed By: #### L ACT #### [facility] [address] [place] [address] Dr. Dominic Dunn Parainfluenza 1 Not detected Normal NOT DETECTED The [facility] Comment on above: Performed By: #### L ACT #### [facility] [address] [place] [address] Dr. Dominic Dunn Parainfluenza 2 Not detected Normal NOT DETECTED The [facility] Comment on above: Performed By: #### L ACT #### [facility] [address] [place] [address] Dr. Dominic Dunn Parainfluenza 3 Not detected Normal NOT DETECTED The [facility] Comment on above: Performed By: #### L ACT #### [facility] [address] [place] [address] Dr. Dominic Dunn Parainfluenza 4 Not detected Normal NOT DETECTED The [facility] Comment on above: Performed By: #### L ACT #### [facility] [address] [place] [address] Dr. Dominic Dunn Rhino/Enterovirus Not detected Normal NOT DETECTED [facility] Comment on above: Performed By: #### L ACT #### [facility] [address] [place] [address] Dr. Dominic Dunn RP2 Header 1 RESPIRATORY PANEL: VIRUSES Normal [facility] Comment on above: Performed By: #### L ACT #### [facility] [address] [place] [address] Dr. Dominic Dunn RP2 Header 2 RESPIRATORY PANEL: BACTERIA Normal The [facility] Comment on above: Performed By: #### L ACT #### [facility] [address] [place] [address] Dr. Dominic Dunn RSV Not detected Normal NOT DETECTED The [facility] Comment on above: Performed By: #### L ACT #### [facility] [address] [address] [address] Dominic Dunn SARS-CoV-2 (COVID-19) RNA STONE+probe Ql (Unsp spec) Not detected Normal NOT DETECTED [facility] Comment on above: Performed By: #### L ACT #### [facility] [address] [address] [address] Dominic Dunn XR CHEST 1 Von [...] QUIANA GRANADOS Date: 2022-06-27 07:13 Normal [facility] SARS-CoV-2 (COVID-19) RNA NA A+probe Ql (Resp)on 11-13-2021 SARS-CoV-2 (COVID-19) RNA STONE+probe Ql (Unsp spec) Positive [employer] Other Vital Signs Date Time Vital Sign Value Performing Clinician Facility 06-28-2023 12:37-0500 Body height 172.72 cm [facility] 06-28-2023 12:37-0500 Body mass index (BMI) [Ratio] 32.6 kg/m2 [facility] 06-28-2023 12:37-0500 Body temperature 97.8 [degF] [facility] 06-28-2023 12:37-0500 Body weight 97.52 kg [facility] 06-28-2023 12:37-0500 Heart rate 82 /min [facility] 06-28-2023 12:37-0500 Respiratory rate 16 /min [facility] 06-28-2023 12:37-0500 SaO2% (BldA) [Mass fraction] 96 % [facility] 06-21-2023 15:54-0500 Body height 172.7 cm Christiano Wilkes MD Work Phone: [facility] 06-21-2023 15:54-0500 Body mass index (BMI) [Ratio] 32.39 kg/m2 Christiano Wilkes MD Work Phone: [facility] 06-21-2023 15:54-0500 Body temperature 97.81 [degF] Christiano Wilkes MD Work Phone: [facility] 06-21-2023 15:54-0500 Body weight 96.62 kg Christiano Wilkes MD Work Phone: [facility] 06-21-2023 15:54-0500 Diastolic blood pressure 70 mm[Hg] Christiano Wilkes MD Work Phone: [facility] 06-21-2023 15:54-0500 Heart rate 83 /min Christiano Wilkes MD Work Phone: [facility] 06-21-2023 15:54-0500 SaO2% (BldA) [Mass fraction] 98 % Christiano Wilkes MD Work Phone: [facility] 06-21-2023 15:54-0500 Systolic blood pressure 124 mm[Hg] Christiano Wilkes MD Work Phone: [facility] 04-16-2023 09:05-0500 Body height 172.72 cm [facility] 04-16-2023 09:05-0500 Body weight 91.26 kg [facility] 05-10-2022 16:00-0500 Body height 172.72 cm Carri Cano Other [employer] Other 05-10-2022 16:00-0500 Body mass index (BMI) [Ratio] 29.95 kg/m2 Carri Cano Other [employer] Other 05-10-2022 16:00-0500 Body temperature 98.7 [degF] Carri Cano Other [employer] Other 05-10-2022 16:00-0500 Body weight 89.36 kg Carri Cano Other [employer] Other 05-10-2022 16:00-0500 Diastolic blood pressure 79 mm[Hg] Carri Dovemond Other [employer] Other 05-10-2022 16:00-0500 Respiratory rate 18 /min Carri Cano Other [employer] Other 05-10-2022 16:00-0500 SaO2% (BldA) [Mass fraction] 100 % Carri Cano Other [employer] Other 05-10-2022 16:00-0500 Systolic blood pressure 121 mm[Hg] Carri Cano Other [employer] Other 11-13-2021 10:15-0400 Body height 172.72 cm Peyton Stone Other [employer] Other 11-13-2021 10:15-0400 Body mass index (BMI) [Ratio] 30.41 kg/m2 Peyton Stone Other [employer] Other 11-13-2021 10:15-0400 Body temperature 100.7 [degF] Peyton Stone Other [employer] Other 11-13-2021 10:15-0400 Body weight 90.72 kg Peyton Stone Other [employer] Other 11-13-2021 10:15-0400 SaO2% (BldA) [Mass fraction] 97 % Peyton Stone Other [employer] Other 02-03-2021 15:45-0400 Body height 172.72 cm Charmaine Wheatley Other [employer] Other 02-03-2021 15:45-0400 Body mass index (BMI) [Ratio] 30.41 kg/m2 Charmaine Wheatley Other [employer] Other 02-03-2021 15:45-0400 Body temperature 97.9 [degF] Charmaine Wheatley Other [employer] Other 02-03-2021 15:45-0400 Body weight 90.72 kg Charmaine Wheatley Other [employer] Other 02-03-2021 15:45-0400 SaO2% (BldA) [Mass fraction] 96 % Charmaine Wheatley Other [employer] Other Encounters Encounter Date Encounter Type Care Provider Facility Start: 06-28-2023 End: 06-28-2023 ambulatory [facility] Work Phone: Start: 06-28-2023 End: 06-28-2023 Patient encounter procedure [facility] Work Phone: Start: 06-21-2023 End: 06-21-2023 ambulatory CHRISTIANO WILKES Not Available Start: 06-21-2023 End: 06-21-2023 Office outpatient visit 15 minutes Christiano Wilkes MD Work Phone: [facility] Comment on above: Chronic bilateral lo w back pain with left-sided sciatica (Primary Dx) Start: 06-21-2023 Bamboo flowsheet Christiano Wilkes MD Work Phone: [facility] Start: 06-21-2023 Javierlanette flowszara Wilkes MD Work Phone: [facility] Start: 04-16-2023 End: 04-16-2023 Patient encounter procedure [facility] Work Phone: Start: 08-12-2022 End: 08-12-2022 ambulatory Imad Asaad Facility:[facility] Start: 07-20-2022 End: 07-20-2022 ambulatory Imad Asaad Other [employer] Other Start: 07-20-2022 Telephone encounter Imad Asaad [employer] Start: 06-28-2022 End: 07-01-2022 Evaluation and management of inpatient LEWIS MANLEY . Facility: Start: 05-10-2022 End: 05-10-2022 ambulatory Carri Cano Other [employer] Other Start: 05-10-2022 Office outpatient visit 15 minutes Carri Rachael [facility] Start: 11-13-2021 End: 11-13-2021 ambulatory Peyton Stone Other [employer] Other Start: 11-13-2021 Office outpatient visit 15 minutes Peyton Stone [facility] Start: 02-03-2021 Office outpatient visit 15 minutes Charmaine Wheatley [facility] Procedures Date Procedure Procedure Detail Performing Clinician Start: 06-28-2023 COVID/Influenza Antigen (POC) Start: 06-29-2022 Drainage of Right Lo wer Lung Lobe, Via Natural or Artificial Opening Endoscopic, Diagnostic LEWIS MANLEY . Plan of Treatment Date Care Activity Detail Author Start: 06-21-2023 End: 06-21-2024 XR Lumbar spine 2 or 3 Views XR lumbar spine 2 or 3 views Imaging Routine Chronic bilateral low back pain with left-sided sciatica Expected: 06/21/2023, Expires: 06/21/2024 [facility] Work Phone: Comment on above: Expected: 06/21/2023 , Expires: 06/21/2024 Start: 01-07-2023 Influenza vaccination Influenz a Vaccine (#1) [facility] Healthcare Immunizations Immunization Date Immunization Notes Care Provider Tristan pang 01-11-2019 tetanus toxoid, redu edwardo diphtheria toxoid, and acellular pertussis vaccine, adsorbed Charmainejose Wheatley Other [facility] Payers Date Payer Category Payer Unknown [employer] [id number] 2023-Present [address] [place] [address] [id number] 2022 Self-pay 1985 Unknown [id number] 1985 Unknown [id number] 1959 Unknown [id number] Private Health Insurance [facility] [id number] Unknown [id number] Unknown [id number] Social History Date Type Detail Facility Unknown if ever smoked [facility] [employer] Other Start: 06-21-2023 Sex Assigned At [facility] [employer] Other Tobacco smoking status NEIS Tobacco smoking consumption unknown [facility] Healthcare Start: 1985 Sex Assigned At Not on file [facility] Start: 09-07-2017 End: 06-21-2023 Tobacco smoking status NEIS Never smoked tobacco [facility] Start: 06-21-2023 Tobacco use and exposure Smokeless tobacco non-user [facility] Start: 06-21-2023 History of Social function [facility] Start: 1985 Sex Assigned At Male F [facility] History of Present illness Narrative 06-21-2023 Christiano Wilkes MD - 06/21/2023 4:13 PM Kalpana Wilkes MD - 06/21/2023 3:45 PM EST Note [...] pain since 06/19. 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 [employer] Other Evaluation note 11-13-2021 Note Date & [...] new or worsening symptoms after 1 week. [employer] Other Evaluation note 02-03-2021 Note Date & [...] care provider if no improvement of symptoms. [employer] Other History general Narrative - Reported 02-07-2016 Note Date & Type Note Facility 02-07-2016 History general N arrative - Reported Type Medical History Depression Medical History Insomnia, unspecified Medical History Anxiety/Panic Attacks Hospitalization History Anxiety, Depression, SI -- [facility] 02/2016 [employer] Other Evaluation note Note Date & Type Note Facility Evaluation note No Information [employer] Other Evaluation note Note Date & Type Note Facility Evaluation note Diagnosis Chronic bilateral low back pain with left-sided sciatica- Primary documented in this encounter [facility] Evaluation note Note Date & Type Note Facility Evaluation note Diagnosis Onset Date Acute non-recurrent maxillary sinusitis acute Contact with or exposure to other viral diseases [facility] Work Phone: Summary Purpose Family History Relationship Condition Age at Onset Recorded Date/T adán family member Presence of cardiac pacemaker Unknown Advance Directives Advance Directive Response Recorded Date/ Time Advance Directives No May 09, 2017 1:36am Chief Complaint and Reason for Visit Chief Complaint Congestion, Cough Congestion Reason for Visit Acute non-recurrent maxillary sinusitis Contact with or exposure to other viral diseases Additional Source Comments REASON FOR VISIT (unrecogniz ed section and content) Reason Comments Back Pain (unrecognized sect ion and content) No Status Records FoundNo Status Records FoundNo Status Records Found INFORMATION SOURCE (unrecogn ized section and content) DATE CREATED AUTHOR 08/15/2022 [facility] DATE CREATED AUTHOR AUTHOR'S ORGANIZ ATION 08/18/2022 [facility] DATE CREATED AUTHOR AUTHOR'S ORGANIZ ATION 06/23/2023 [facility] Care Teams (unrecognized sec tion and content) Ocular Care Aide Relationship Specialty Start Date End Date Christiano Wilkes MD [address] [place] [phone] PCP - General Family Medicine 06/21/23 Ocular Care Aide Relationship Specialty Start Date End Date Christiano Wilkes MD [address] [place] [phone] PCP - General Family Medicine 06/21/23 Team Status: Active Member Role Status Dates PHYSICIAN NO FAMILY Primary Care Provider Active Team Status: Inactive Member Role Status Dates Carri Cano NP-Luis A Attending Provider Active S tart: April 16, 2023 End: April 16, 2023 Team Status: Inactive Member Role Status Dates PHYSICIAN NO FAMILY Primary Care Provider Active Start: June 28, 2023 End: June 28, 2023 Mavis Reyes APRN Attending Provider Active Start: June 28, 2023 End: June 28, 2023 Goals (unrecognized section and content) Goals may be documented in a n alternate section FOR RECORDS PERTAINING TO PATIENTS WHO ARE [...] BE BASED ON THE PRIMARY CLINICAL RECORDS. [employer] [facility]. provides no warranty or guarantee of the accuracy or completeness of information in this document.
--- NOTE | 2023-07-05 07:40 | MR_ITS ---
[address] [address] Patient Name: JUVENCIO SPARKS MRN: [id number] date: 1985 Sex: M Assigned Patient Location: MRI Current Patient Location: MRI Accession/Order Number: [id number] Exam Date: 07/05/2023 08:02 Report Date: 07/05/2023 08:56 At the request of: SASHA WILKES Procedure: MR lumbar spine wo con EXAMINATION: MR lumbar spine wo con HISTORY: Narrowing Of Lumbar Intervertebral Disc Space M51.36 COMPARISON: No relevant comparison available. TECHNIQUE: A variety of imaging planes and parameters were utilized for visualization of suspected pathology. FINDINGS: For the purposes of numbering, sagittal T2 image # 8 extends from the T11-T12 vertebral body superiorly to the S3 level inferiorly. PARASPINAL AREA: Normal with no visible mass. BONES: Normal alignment with no acute fracture or spondylolisthesis. No bone edema. CORD/CAUDA EQUINA: Normal caliber, contour, and signal intensity. DISC LEVELS: 12-L1: No significant disc/facet abnormality, spinal stenosis, or foraminal stenosis. L1-L2: No significant disc/facet abnormality, spinal stenosis, or foraminal stenosis. L2-L3: No significant disc/facet abnormality, spinal stenosis, or foraminal stenosis. L3-L4: No significant disc/facet abnormality, spinal stenosis, or foraminal stenosis. L4-L5: Early degenerative disc disease is present without focal protrusion or neural impingement. L5-S1: Moderate disc desiccation with mild disc space narrowing. Posterior broad-based posterior central disc protrusion extending posteriorly up to 2.5 mm. No central or foraminal stenosis MR/MR lumbar spine wo con IMPRESSION: Discogenic changes L4-5 and L5-S1 with no central or foraminal stenosis Electronically authenticated by: QUIANA GRANADOS Date: 07/05/2023 08:56
== END 2023-07-05 07:35 | disposition home or self-care (01) ==
LOC: MRI 07:35
PROVIDERS: PCP Family Medicine; Visit Provider Family Medicine
DX: M51.36 Other intervertebral disc degeneration, lumbar region (principal)
CPT/HCPCS: 72148

== ENCOUNTER 2025-05-06 10:32 | Emergency (ER) | payer OTHER, SELFPAY ==
[2025-05-06 10:37] VITALS: BP 129/97; PULSE 107; TEMP 37.1; O2SAT 96; BMI 31.9
--- NOTE | 2025-05-06 10:48 | XR_ITS ---
The [address] [address] Patient Name: JUVENCIO SPARKS MRN: [id number] date: 1985 Sex: M Assigned Patient Location: ER Current Patient Location: ER Accession/Order Number: [id number] Exam Date: 05/06/2025 11:00 Report Date: 05/06/2025 11:16 At the request of: PAYAM HOOD MD Procedure: XR chest 1V PORTABLE AP ERECT CHEST 1102 hours CLINICAL HISTORY: cough, shortness of breath and fever COMPARISON: 04/24/2023 chest x-ray and CT There is mild elevation of the right hemidiaphragm . The heart is within normal limits. There is no vascular congestion. There might be a left perihilar atelectasis. No other consolidation is seen. There is no effusion or pneumothorax. The osseous structures are intact. XR/XR chest 1V IMPRESSION: POTENTIAL LEFT PERIHILAR ATELECTASIS. NO OTHER ACUTE FINDINGS Impression dictated by: Naila Moran M.D. 05/06/2025 11:16 AM Dictation Location: [place] [address] Electronically authenticated by: [id number] Y Date: 05/06/2025 11:16
--- NOTE | 2025-05-06 10:48 | ED.GENADUL1 ---
HPI HPI - General Adult General Chief complaint: Upper Respiratory Infection Stated complaint: HEADACHE, VOMITING, NASAL DRIP, COUGH Time Seen by Provider: 05/06/25 10:33 Source: patient Mode of arrival: walk-in Limitations: no limitations History of Present Illness HPI narrative: 39-year-old male presented for cough. Its been nonproductive and has had it for 10 days. No hemoptysis or diarrhea. He has had some fevers at home as well. He states he had a bad case of pneumonia about 3 years ago. Related Data Home Medications ?Medication ?Instructions ?Recorded ?Confirmed amoxicillin 875 mg-potassium 1 tab PO Q12H 04/24/23 04/24/23 clavulanate 125 mg tablet fluticasone propionate 50 intranasal 04/24/23 mcg/actuation nasal spray,suspension prednisone 20 mg tablet 20 mg PO Q12H 04/24/23 04/24/23 Previous Rx's ?Medication ?Instructions ?Recorded doxycycline hyclate 100 mg capsule 100 mg PO BID 10 days #20 caps 04/24/23 prednisone 10 mg tablet See Rx Instructions .Route 04/24/23 .COMPLEX #30 tabs Allergies Allergy/AdvReac Type Severity Reaction Status Date / Time No Known Drug Allergies Allergy Verified 05/06/25 10:36 Opioid HPI Opioid Management Most Recent Opioid Data: Last Pain Scale 4 Today, 10:37 Review of Systems ROS Narrative A ten point review of systems is negative except as noted above. PFSH PFSH Social History Little interest or pleasure in doing things: not at all Feeling down, depressed, or hopeless: not at all Exam Narrative Exam Narrative: Nurses note and vital signs reviewed General:The patient appears in no acute distress Skin:Warm, dry, no pallor noted.There is no rash noted. Head:Normocephalic, atraumatic Eye: Normal conjunctiva, no drainage Ears, Nose, Mouth, and Throat: oral mucosa is moist. Nares patent. Cardiovascular:Regular Rate and Rhythm Respiratory:Patient is in no distress, no accessory muscle use, lungs are clear to auscultation, no wheezing, rales or rhonchi Back:non-tender GI: Soft and nontender Musculoskeletal: The patient has no evidence of calf tenderness, no pitting edema, symmetrical pulses noted bilaterally Neurological:A&O, normal speech Psychiatric:Cooperative Constitutional Vital Signs, click to edit/add: Last Vital Signs Temp 98.7 F 05/06/25 10:37 Pulse 107 H 05/06/25 10:37 Resp 20 05/06/25 10:37 BP 129/97 H 05/06/25 10:37 Pulse Ox 96 05/06/25 10:37 O2 Del Method Room Air 05/06/25 10:37 Course Vital Signs Vital signs: Vital Signs Temperature 98.7 F 05/06/25 10:37 Pulse Rate 107 H 05/06/25 10:37 Respiratory Rate 20 05/06/25 10:37 Blood Pressure 129/97 H 05/06/25 10:37 Pulse Oximetry 96 05/06/25 10:37 Oxygen Delivery Method Room Air 05/06/25 10:37 Temperature 98.7 F 05/06/25 10:37 Pulse Rate 107 H 05/06/25 10:37 Respiratory Rate 20 05/06/25 10:37 Blood Pressure 129/97 H 05/06/25 10:37 Pulse Oximetry 96 05/06/25 10:37 Oxygen Delivery Method Room Air 05/06/25 10:37 Medical Decision Making MDM Narrative Medical decision making narrative: Chest x-ray is negative for pneumonia but the patient is positive for influenza. Treatment diagnosis and follow-up were discussed with the patient. Lab Data Lab results reviewed: Yes I reviewed the patient's lab results Labs: Lab Results 05/06/25 Range/Units 10:40 Influenza Type A Ag Positive A Influenza Type B Ag Negative SARS-CoV-2 Ag (CV2AG) Negative (NEGATIVE) Imaging Data Chest x-ray: Radiologist's impression: ITS Impressions Chest X-Ray 05/06/25 10:48 IMPRESSION: POTENTIAL LEFT PERIHILAR ATELECTASIS. NO OTHER ACUTE FINDINGS Impression dictated by: Naila Moran M.D. 05/06/2025 11:16 AM Dictation Location: [place] [address] Electronically authenticated by: [id number] Y Date: 05/06/2025 11:16 Discharge Plan Discharge Chief Complaint: Upper Respiratory Infection Clinical Impression: Influenza Patient Disposition: Home, Self-Care Time of Disposition Decision: 11:25 Condition: Good Mode of Transportation: Private Vehicle Prescriptions / Home Meds: No Action amoxicillin-pot clavulanate 875-125 mg tablet 1 tab PO Q12H prednisone 20 mg tablet 20 mg PO Q12H fluticasone propionate 50 mcg/actuation spray,suspension INTRANASAL prednisone 10 mg tablet See Rx Instructions .ROUTE .COMPLEX Qty: 30 0RF Rx Instructions: 4 by mouth daily for three days then 3 by mouth daily for three days then 2 by mouth daily for three days then 1 by mouth daily for three days doxycycline hyclate 100 mg capsule 100 mg PO BID 10 Days Qty: 20 0RF Print Language: Ukrainian Instructions: Influenza (ED) Referrals: Physician,Non-Staff, MD [Primary Care Provider] - 1 week
[2025-05-06 10:59] LABS: SARS-CoV-2 Ag NEGATIVE (NEGATIVE)
--- OUTSIDE RECORDS SUMMARY | 2025-05-06 11:21 | XMS_ITS | Clinical Summary ---
Author Organization [facility] Healthcare Address [address] [place] [address] Care Team Providers Care Char Filter Operator Name Role Phone Christiano De La Cruz MD Primary Care Provider [phone] Allergies No known active allergies Medications MedicationSigDispense QuantityRefillsLast FilledStart DateEnd DateStatus tiZANidine (Zanaflex) 4 MG tablet Indications:Chronic bilateral low back pain with left-sided sciaticaTake 1 tablet (4 mg) by mouth every 6 (six) hours if needed for muscle spasms 30 tablet 06/21/2023ctive Active Problems ProblemNoted DateDiagnosed DateGastroesophageal reflux disease without vumrouqwvvu19/13/2024bnormal CT of the chest06/21/2023ib dqrwjd8306/21/2023 Obesity (BMI 30-39.9)06/21/2023Narrowing of lumbar intervertebral disc space 06/21/2023 Assessment & Plan (06/21/2023 4:13 PM EST): Severe pain and injury years ago. Check x-ray. Start prednisone for inflammation and use zanaflex PRN. Use heat or massage PRN. Recommend home PT exercises and if no improvement will need MRI. Social History Tobacco UseTypesPacks/DayYears UsedDateSmoking Tobacco: NeverSmokeless Tobacco: Never Tobacco Cessation:Counseling Given: Not Answered Sex and Gender InformationValueDate RecordedSex Assigned at BirthNot on file Legal OxhVakr6201/17/2023 12:14 PM EDTGender IdentityNot on fileSexual Orientation Not on file Last Filed Vital Signs Vital SignReadingTime TakenCommentsBlood Rkizsmue386/7002 3:54 PM EST Sbbzl408706/21/2023 3:54 PM XLMOfauppjqhvu44.6 ??C (97.8 ??F)06/21/2023 3:54 PM ESTRespiratory Rate--Oxygen Jyehtkfyli06%06/21/2023 3:54 PM ESTInhaled Oxygen Concentration--Rvxxqs45.6 kg (213 lb)06/21/2023 3:54 PM XOGOkuuzh790.7 cm (5' 8 )06/21/2023 3:54 PM ESTBody Mass Index32.39006/21/2023 3:54 PM EST Plan of Treatment Not on file Insurance Care Teams Team MemberRelationshipSpecialtyStart DateEnd Date Christiano De La Cruz MD [facility]
--- OUTSIDE RECORDS SUMMARY | 2025-05-06 11:22 | XMS_ITS | Clinical Summary ---
Author Organization [facility] tem Address [id number] [address] [place] [address] Care Team Providers Care Dowel Sticker Operator Name Role Phone No Pcp, No Pcp Primary Care Provider Unavailabl e Allergies No known active allergies Medications * This document contains information received from the source organization and may not represent a complete record from that organization. MedicationSigDispense QuantityRefillsLast FilledStart DateEnd DateStatus amphetamine-dextroamphetamine XR (ADDERALL XR) 20 mg 24 hr capsule Indications:Attention deficit hyperactivity disorder (ADHD), combined typeTake 1 capsule (20 mg total) by mouth in the morning. Max Daily Amount: 20 mg. 30 capsule 5Active amphetamine-dextroamphetamine XR (ADDERALL XR) 10 mg 24 hr capsule Indications:Attention deficit hyperactivity disorder (ADHD), combined typeTake 1 capsule (10 mg total) by mouth in the morning. Max Daily Amount: 10 mg. 30 capsule Discontinued(Reorder) Active Problems ProblemNoted DateDiagnosed DateAttention deficit hyperactivity disorder (ADHD), combined type06/29/2024 Encounters * This document contains information received from the source organization and may not represent a complete record from that organization. DateTypeDepartmentCare JtzdEvhqdadatqn17/19/2025Travelfrom Last 3 Months Social History Tobacco UseTypesPacks/DayYears UsedDateSmoking Tobacco: NeverSmokeless Tobacco: NeverChildcareAnswerDate CdvzbyraNovgvyujyEuzeuen01/12/2019EmploymentAnswerDate QvrdbgmsPuveoyhkhhTeprzyu77/12/2019Hunger ScreeningAnswerDate RecordedWithin the past 12 months we worried whether our food would run out before we got money to buy more.Never True04/26/2025Within the past 12 months the food we bought just didn't last and we didn't have money to get more.Never True04/26/2025Purpose - LifeAnswerDate RecordedPurpose and direction in vtfoOyiusrc60/11/2021ex and Gender InformationValueDate RecordedSex Assigned at BirthNot on fileLegal Sex Male12/12/2014 11:53 AM EDTGender IdentityNot on fileSexual OrientationNot on file Last Filed Vital Signs Vital SignReadingTime TakenCommentsBlood Jjqpukvd656/6804/26/2025 8:16 AM EST Hdrjy730004/26/2025 8:16 AM EGEArdyvlkuqop48.7 ??C (98.1 ??F)03/04/2017 8:57 AM EDTRespiratory Scbj1549 8:57 AM EDTOxygen Ohdoxjhqvx764%03/04/2017 8:57 AM EDTInhaled Oxygen Concentration--Vlcyxx55.3 kg (208 lb)04/26/2025 8:16 AM EST Omcklz175.7 cm (5' 8 )03/04/2017 8:57 AM EDTBody Mass Index31.6303/04/2017 8:57 AM EDT Plan of Treatment Health MaintenanceDue DateLast DoneCommentsDepression Knpokmnhp57/20/1996COVID- 19 Vaccine ( season)/, 09/10/2020Influenza Vaccine 01/07/2025dult BMI Lzjhmpukl76Tobacco Yioisiyaz05/19/2026 04/26/2025DTaP,Tdap and Td Vaccines (6 - Td or Tdap), 11/26/2009, 12/20/1988, Additional history exists Medical Devices Not on file Insurance Care Teams Team MemberRelationshipSpecialtyStart DateEnd Date No Pcp, No Pcp JACKY Marks [address] [facility] Iazharzk[facility]/27[facility]
--- OUTSIDE RECORDS SUMMARY | 2025-05-06 11:22 | XMS_ITS | Patient Health Record ---
Author Organization [facility] Address [address] [place] [address] Care Team Providers Care Awning Hanger Supervisor Name Role Phone NO, PCP Primary Care Provider Unavailabl e Allergies No Known Allergies Reason For Referral No Information Social History Tobacco Use: Social History Observation Description Date Details (start date - stop date) Never Smoker NA - NA Tobacco Control (Standard) Question Answer Notes Tobacco use: Nonsmoker Problems Problem Type SNOMED Code ICD Code Onset Dates Problem Status W/U Status Risk Notes Problem Obese class I (finding) (8819263 [id number]) Obesity (BMI 30.0-34.9) (E66.9) Activeconfirmed Plan Of Treatment No Information Insurance Providers Payer Name Payer Address Payer Phone Subscriber Number Group Number Insured Name Patient Relationship to Insured Coverage Start Date Coverage End Date [employer] [address] [place] [phone] [id number] Chris An Self - patient is the insured Medical (General) History Medical History History ICD Code H/O: pneumonia Z87.01 H/O sinusitis Z87.09 Surgical History Surgery Date(Month/Year) bronchoscopy Hospitalization History Reason Date(Month/Year) pneumonia 05/2022
--- OUTSIDE RECORDS SUMMARY | 2025-05-06 11:22 | XMS_ITS | Encounter Summary ---
Author Organization [facility] tem Address [id number] [address] [place] [address] Care Team Providers Care Reshipping Clerk Name Role Phone No Pcp, No Pcp Primary Care Provider Unavailabl e Encounter Details DateTypeDepartmentCare Team (Latest Contact Info)Vfiqmzlhkdo31/19/2025Travel Social History Tobacco UseTypesPacks/DayYears UsedDateSmoking Tobacco: NeverSmokeless Tobacco: NeverChildcareAnswerDate ZaxklefwHikcygawbPvifshx01/12/2019EmploymentAnswerDate QaekhimgYqqeeazaobBdfgzmd49/12/2019Hunger ScreeningAnswerDate RecordedWithin the past 12 months we worried whether our food would run out before we got money to buy more.Never True04/26/2025Within the past 12 months the food we bought just didn't last and we didn't have money to get more.Never True04/26/2025Purpose - LifeAnswerDate RecordedPurpose and direction in asniTztmpht67/11/2021ex and Gender InformationValueDate RecordedSex Assigned at BirthNot on fileLegal Sex Male12/12/2014 11:53 AM EDTGender IdentityNot on fileSexual OrientationNot on filedocumented as of this encounter Plan of Treatment Not on file documented as of this encounter Visit Diagnoses Not on filedocumented in this encounter Care Teams Team MemberRelationshipSpecialtyStart DateEnd Date No Pcp, [place] [address] PCP - GeneralFamily Bmhyxnok53/27/17documented as of this encounter
--- OUTSIDE RECORDS SUMMARY | 2025-05-06 11:22 | XMS_ITS | Patient Health Record ---
Author Organization [facility] [place] Address [address] [place] [address] Care Team Providers Care Online Tutor Name Role Phone Christiano De La Cruz MD Primary Care Provider Unavailab le Allergies No Known Allergies Reason For Referral No Information Medications Medication SIG (Take, Route, Frequency, Duration) Notes Start Date End Date Status Omeprazole 40 MG 1 capsule 30 minutes before mor joce meal Orally Once a day ActiveFamotidine 40 MG1 tablet as needed Orally Twice a dayActive Immunizations Vaccine Route Administration Date Status Comme nts SARS-COV-2 (COVID 19 Pfizer 30mcg/0.3mL) Unknown 10/01/2020 Administered Tdap (Boostrix)Xzfhrwa8111/26/2009dministered Social History Tobacco Use: Social History Observation Description Date Details (start date - stop date) Never Smoker NA - NA Tobacco Use/Smoking Question Answer Notes Patient is a nonsmoker Problems Problem Type SNOMED Code ICD Code Onset Dates Problem Status W/U Status Risk Notes Problem Lung field abnormal (382073866) Abnormal CT scan of lung (R91.8) ActiveconfirmedProblemViral pneumonia (11190689)Viral pneumonia (J12.9)Active confirmedMetapneumovirusProblemGastroesophageal reflux disease (256303131) Gastroesophageal reflux disease (K21.9)Activeconfirmed Plan Of Treatment No Information Insurance Providers Payer Name Payer Address Payer Phone Subscriber Number Group Number Insured Name Patient Relationship to Insured Coverage Start Date Coverage End Date MMO [employer] [address] [place] [address] [id number] Yang Anelf - patient is the insured Medical (General) History Medical History History ICD Code Viral pneumonia J12.9 Gastroesophageal reflux disease K21.9 Surgical History Surgery Date(Month/Year) Bronchoscopy 06/29/2022 Hospitalization History Reason Date(Month/Year) Viral pneumonia 06/27/2022
--- OUTSIDE RECORDS SUMMARY | 2025-05-06 11:32 | XMS_ITS | CCD ---
Author Organization [facility] Care Team Providers Care Telegraphic Typewriter Repairer Name Role Phone Charmaine Wheatley Unavailable StonePeyton Unavailable RachaelCarri gastelum Unavailable Asaad, Imad Unavailable SAMSA ., LEWIS Procedure Practitioner Unavailab le IVIS ., LICO Attending Unavailable IVIS ., LICO Admitting Unavailable REQUEST, DR NONE LISTED Primary Care Unavailelgin TORREZ, DR QUIANA Lawler Consulting Unavailable TATUM ULLOA Consulting Unavailable LEWIS RIVERA Consulting Unavailable TORITO LANCASTER Consulting Unavailable FERMIN Rodriguez, MAEVE Consulting Unavailable SEGUNDO AMBRIZ Consulting Unavaila ble ARCHANA, RENARD Consulting Unavailable TUCKER, ZEESHAN Consulting Unavailable SISTER, SANDI Consulting Unavailable IVIS ., LICO Consulting Unavailable IVIS II, KIMBERLI Consulting Unavailable Asaad, Imad Attending Unavailable Asaad, Imad Admitting Unavailable NO FAMILY, PHYSICIAN Primary Care Unavailable Christiano Wilkes MD Primary Care Provider CHRISTIANO WILKES Attending Unavailable MERLE PARISH Attending Unavailable NO PCP, NO PCP Primary Care Unavailable MERLE PARISH Attending Unavailable NO PCP, NO PCP Primary Care Unavailable MERLE PARISH Attending Unavailable NO PCP, NO PCP Primary Care Unavailable MERLE PARISH Attending Unavailable NO PCP, NO PCP Primary Care Unavailable MERLE PARISH Attending Unavailable NO PCP, NO PCP Primary Care Unavailable Christiano Wilkes MD Primary Care Provider [phone] Medications Current Medications MedicationDrug Class(es)DatesSig (Normalized)Sig (Original)[id number] 200 actuat albuterol 0.09 mg/actuat metered dose inhaler (1 source)beta2-Adrenergic AgonistStart: 70-32-9140mpii 2 puff(s) by inhalation every four hours as neededAlbuterol Sulfate HFA 108 (90 Base) MCG/ACT 2 puffs as needed Inhalation every 4 hrs Jan, Activeamoxicillin 875 mg oral tablet (1 source)Penicillin-class AntibacterialStart: 12-28-7563zlgm 1 tablet by mouth every twelve hoursAmoxicillin 875 MG 1 tablet Orally every 12 hrs for 7 days Jan, Activeamoxicillin 875 mg / clavulanate 125 mg oral tablet (1 source)Penicillin-class AntibacterialStart: 52-58-0772ndka 1 tablet by mouth twice dailyAmoxicillin-Pot Clavulanate Active 1 TAB PO Twice daily 25 02June 28, 2023 12:00ammethylPREDNISolone 4 mg oral tablet (1 source)CorticosteroidStart: 59-59-9044jprdknQVLFZNOvocam 4 MG as directed Orally Once a day for 6 days Jan, Activeomeprazole 40 mg delayed release oral capsule (1 source)Proton Pump InhibitorStart: 74-76-4537imhv 40 mg by mouth once daily Omeprazole Active 40 MG PO Daily August 11, 2022 11:00pmpredniSONE 50 mg oral tablet (4 sources)Start: 06-21-2023 End: 56-63-5369vocr 1 tablet by mouth in the morningpredniSONE (Deltasone) 50 MG tablet Indications: Chronic bilateral low back pain with left-sided sciatica Take 1 tablet (50 mg) by mouth in the morning for 6 days. 6 tablet 0 06/21/2023 06/27/2023 ActiveStart: 55-65-5065kszo 1 tablet by mouth every twelve hours predniSONE 20 MG 1 tablet Orally 2 times a day for 5 day(s) Jun, Active tiZANidine 4 mg oral tablet (4 sources)Central alpha-2 Adrenergic AgonistStart: 94-95-8050leaj 1 tablet by mouth every six hours for muscle spasmstiZANidine (Zanaflex) 4 MG tablet Indications: Chronic bilateral low back pain with left-sided sciatica Take 1 tablet (4 mg) by mouth every 6 (six) hours if needed for muscle spasms 30 tablet 06/21/2023 Active Completed/Discontinued Medications MedicationDrug Class(es)DatesSig (Normalized)Sig (Original)clomiPRAMINE hydrochloride 50 mg oral capsule (1 source)Tricyclic AntidepressantStart: 05-16-2017 End: 47-92-7902xrti 150 mg by mouth once daily at bedtimeClomipramine Discontinued 150 MG PO Daily at bedtime 45 May 16, 2017 12:00am September 07, 2017 8:48amLORazepam 2 mg oral tablet (1 source)BenzodiazepineStart: 05-09-2017 End: 90-09-2713amgq 0.5 mg by mouth twice dailyLorazepam Discontinued 0.5 MG PO Twice daily May 09, 2017 12:00am September 07, 2017 8:48amOLANZapine 2.5 mg oral tablet (2 sources)Atypical AntipsychoticStart: 05-16-2017 End: 62-72-4830bivn 10 mg by mouth twice dailyOlanzapine Discontinued 10 MG PO Twice daily May 16, 2017 12:00am September 07, 2017 8:48amStart: 05-09-2017 End: 09-56-5562tpqu 1 tablet by mouth twice dailyOlanzapine (Zyprexa) 2.5 mg Tablet Discontinued 2.5 MG PO Twice daily May 09, 2017 12:00am May 16, 2017 9:48amQUEtiapine 100 mg oral tablet (2 sources)Atypical AntipsychoticStart: 09-07-2017 End: 79-09-0728losh 150 mg by mouth once daily at bedtimeQuetiapine Discontinued 150 MG PO Daily at bedtime September 06, 2017 11:00pm September 09, 2017 7:52amrisperiDONE 1 mg oral tablet (1 source)Atypical AntipsychoticStart: 09-06-2017 End: 15-85-6013vfkv 1 mg by mouth once daily in the morningRisperidone Discontinued 1 MG PO Every morning September 05, 2017 11:00pm September 09, 2017 7:52am traZODone hydrochloride 100 mg oral tablet (3 sources)Serotonin Reuptake InhibitorStart: 05-16-2017 End: 27-42-3184siky 100 mg by mouth at bedtimeTrazodone Discontinued 100 MG PO Bedtime September 09, 2017 7:53am August 12, 2022 12:00pmStart: 05-09-2017 End: 88-28-4664pdia 50 mg by mouth at bedtimeTrazodone Discontinued 50 MG PO Bedtime May 09, 2017 12:00am May 16, 2017 9:48am24 hr venlafaxine 150 mg extended release oral capsule (3 sources)Serotonin and Norepinephrine Reuptake InhibitorStart: 09-07-2017 End: 26-05-2064lawr 150 mg by mouth once daily in the morningVenlafaxine Discontinued 150 MG PO Every morning September 06, 2017 11:00pm September 09, 2017 7:53am Start: 05-16-2017 End: 95-24-0696rwar 150 mg by mouth once dailyVenlafaxine Discontinued 150 MG PO Daily 30 May 16, 2017 12:00am September 07, 2017 8:48amStart: 05-09-2017 End: 60-90-5128cbxg 1 capsule by mouth once dailyVenlafaxine (Effexor Xr) 75 mg Capsule,Extended Release 24hr Discontinued 75 MG PO Daily May 09, 2017 12:00am May 16, 2017 9:48am Problems Active Problems Problem ClassificationProblemDateDocumented DateEpisodic/ChronicAnxiety disorders (5 sources)Mixed anxiety and depressive disorder; Translations: [Other specified anxiety disorders]78-63-8313PnktnpxYdnwciizv-deficit, conduct, and disruptive behavior disorders (1 source)Attention-deficit hyperactivity disorder, combined type; Translations: [Attention-deficit hyperactivity disorder, combined type]Onset: 06-29-2024 ChronicCardiac dysrhythmias (1 source)Palpitations; Translations: [PALPITATIONS]Onset: 77-38-5756NigrtuxgJ Codes: Adverse effects of medical drugs (1 source)Adverse effect of antiasthmatics, initial encounter; Translations: [ADVERSE EFF ANTIASTHMATICS INITENC]Onset: 78-94-6813BbmjqpzoJphlxsijsb disorders (7 sources)Acid reflux; Translations: [Gastro-esophageal reflux disease without esophagitis]Onset: 236998-38-3360LcxhpbkOkcxhhlrfpobs and screening for infectious disease (4 sources)Suspected clinical finding; Translations: [Contact with and (suspected) exposure to other viral communicable diseases]90-08-7213ZlrgeeqdEzzp disorders (6 sources)Recurrent major depressive episodes; Translations: [Major depressive disorder, recurrent, unspecified]96-30-9384JzzymzsHzfgp endocrine disorders (4 sources)Hypoglycemia; Translations: [Other hypoglycemia]ChronicOther gastrointestinal disorders (1 source)Heartburn; Translations: [Heartburn]Onset: 70-13-9282MwdmhusaBgycd injuries and conditions due to external causes (1 source)Other foreign object in other parts of respiratory tract causing asphyxiation, initial encounter; Translations: [OTH OBJ OTH RESP TRACT ASPHYX INIT]Onset: 77-02-0038DzzbbvcyIkxak nutritional; endocrine; and metabolic disorders (4 sources)Body mass index 30+ - obesity; Translations: [Obesity, unspecified] Onset: 669901-27-1280KnqoantVlozg screening for suspected conditions (not mental disorders or infectious disease) (5 sources)CT of chest abnormal; Translations: [Abnormal findings on diagnostic imaging of other specified body structures]Onset: hronic Other upper respiratory disease (1 source)Chronic rhinitis; Translations: [CHRONIC RHINITIS]Onset: 07-07-2022 ChronicOther upper respiratory infections (4 sources)Acute sinusitis, unspecified; Translations: [Acute upper respiratory infection, unspecified]Onset: 23-45-9343NnghbjfjWvhckkrqe (except that caused by tuberculosis or sexually transmitted disease) (4 sources)Pneumonia, unspecified organism; Translations: [Human metapneumovirus pneumonia]Onset: 14-00-1998CseiffkdJnljprru codes; unclassified (4 sources)Insomnia; Translations: [Insomnia, unspecified]EpisodicRespiratory failure; insufficiency; arrest (adult) (1 source)Acute respiratory failure with hypoxia; Translations: [ACUTE RESPIRATORY FAIL W/HYPOXIA]Onset: 82-77-6555KcncigxfStluweamwp (except in labor) (3 sources)Other specified sepsis; Translations: [Sepsis, unspecified organism] Onset: 93-89-2429KlsaeexcKwlhlcsbaad; intervertebral disc disorders; other back problems (2 sources)Narrowing of intervertebral disc space; Translations: [Narrowing of lumbar intervertebral disc space]Onset: 902100-75-7303AoxnkbjUtexbfptxzz; intervertebral disc disorders; other back problems (4 sources)Chronic low back pain; Translations: [Lumbago with sciatica, left side]Onset: 747905-60-4495UwruzcsgDzonurv and intentional self-inflicted injury (1 source)Suicidal thoughts; Translations: [Suicidal ideations]04-20-2023 EpisodicUnclassified (1 source)CONTACT W/AND (SUSP) EXPOS COVID-19; Translations: [CONTACT W/AND (SUSP) EXPOS COVID-19]Onset: 07-07-2022 Past or Other Problems Problem ClassificationProblemDateDocumented DateEpisodic/ChronicChronic obstructive pulmonary disease and bronchiectasis (1 source)Bronchitis, not specified as acute or chronic; Translations: [Bronchitis J40]Onset: 02-03-2021 Resolved: 67-66-7009PalldorkSuuym of unknown origin (1 source)Fever, unspecifiedOnset: 11-13-2021 Resolved: 08-39-5000TymewnfjXkrpd bone disease and musculoskeletal deformities (5 sources)Finding of bone of thorax; Translations: [Disorder of bone, unspecified]Onset: 919489-29-1302DdngztrzDbjocv media and related conditions (1 source)Otitis media, unspecified, bilateral; Translations: [Bilateral acute otitis media H66.93]Onset: 02-03-2021 Resolved: 21-12-4301EwriashbYnmmq infection (1 source)COVID-19Onset: 11-13-2021 Resolved: 11-13-2021 Results Test NameValueInterpretationReference RangeFacilityMR LUMBAR SPINE WO CONon 14-89-0014[address] [address] Magnetic Resonance Report Signed Patient: CHRIS AN MR#: [id number] : 1985 Acct:[id number] Age/Sex: 37 / M ADM Date: 07/05/23 Loc: MRI Attending Dr: Christiano Wilkes M.D. Ordering Physician: Christiano Wilkes M.D. Date of Service: 07/05/23 Procedure(s): MR lumbar spine wo con Accession Number(s): [id number] cc: Christiano Wilkes M.D. [address] [address] Patient Name: CHRIS AN MRN: [id number] date: 1985 Sex: M Assigned Patient Location: MRI Current Patient Location: MRI Accession/Order Number: [id number] Exam Date: 07/05/2023 08:02 Report Date: 07/05/2023 08:56 At the request of: CHRISTIANO WILKES Procedure: MR lumbar spine wo con EXAMINATION: MR lumbar spine wo con HISTORY: Narrowing Of Lumbar Intervertebral Disc Space M51.36 COMPARISON: No relevant comparison available. TECHNIQUE: A variety of imaging planes and parameters were utilized for visualization of suspected pathology. FINDINGS: For the purposes of numbering, sagittal T2 image # 8 extends from the T11-T12 vertebral body superiorly to the S3 level inferiorly. PARASPINAL AREA: Normal with no visible mass. BONES: Normal alignment with no acute fracture or spondylolisthesis. No bone edema. CORD/CAUDA EQUINA: Normal caliber, contour, and signal intensity. DISC LEVELS: 12-L1: No significant disc/facet abnormality, spinal stenosis, or foraminal stenosis. L1-L2: No significant disc/facet abnormality, spinal stenosis, or foraminal stenosis. L2-L3: No significant disc/facet abnormality, spinal stenosis, or foraminal stenosis. L3-L4: No significant disc/facet abnormality, spinal stenosis, or foraminal stenosis. L4-L5: Early degenerative disc disease is present without focal protrusion or neural impingement. L5-S1: Moderate disc desiccation with mild disc space narrowing. Posterior broad-based posterior central disc protrusion extending posteriorly up to 2.5 mm. No central or foraminal stenosis MR/MR lumbar spine wo con IMPRESSION: Discogenic changes L4-5 and L5-S1 with no central or foraminal stenosis Electronically authenticated by: QUIANA TORREZ Date: 07/05/2023 08:56 Dictated By: Quiana Torrez M.D. Signed By: 07/05/23 0859 DD/ 0856 TD/TT: Biometry Teacher:TBHRadiology, Radiologist, - 07/05/[address] [address] Magnetic Resonance Report Signed Patient: CHRIS AN MR#: [id number] : 1985 Acct:[id number] Age/Sex: 37 / M ADM Date: 07/05/23 Loc: MRI Attending Dr: Christiano Wilkes M.D. Ordering Physician: Christiano Wilkes M.D. Date of Service: 07/05/23 Procedure(s): MR lumbar spine wo con Accession Number(s): [id number] cc: Christiano Wilkes M.D. [place] [address] Patient Name: CHRIS AN MRN: [id number] date: 1985 Sex: M Assigned Patient Location: MRI Current Patient Location: MRI Accession/Order Number: [id number] Exam Date: 07/05/2023 08:02 Report Date: 07/05/2023 08:56 At the request of: CHRISTIANO WILKES Procedure: MR lumbar spine wo con EXAMINATION: MR lumbar spine wo con HISTORY: Narrowing Of Lumbar Intervertebral Disc Space M51.36 COMPARISON: No relevant comparison available. TECHNIQUE: A variety of imaging planes and parameters were utilized for visualization of suspected pathology. FINDINGS: For the purposes of numbering, sagittal T2 image # 8 extends from the T11-T12 vertebral body superiorly to the S3 level inferiorly. PARASPINAL AREA: Normal with no visible mass. BONES: Normal alignment with no acute fracture or spondylolisthesis. No bone edema. CORD/CAUDA EQUINA: Normal caliber, contour, and signal intensity. DISC LEVELS: 12-L1: No significant disc/facet abnormality, spinal stenosis, or foraminal stenosis. L1-L2: No significant disc/facet abnormality, spinal stenosis, or foraminal stenosis. L2-L3: No significant disc/facet abnormality, spinal stenosis, or foraminal stenosis. L3-L4: No significant disc/facet abnormality, spinal stenosis, or foraminal stenosis. L4-L5: Early degenerative disc disease is present without focal protrusion or neural impingement. L5-S1: Moderate disc desiccation with mild disc space narrowing. Posterior broad-based posterior central disc protrusion extending posteriorly up to 2.5 mm. No central or foraminal stenosis MR/MR lumbar spine wo con IMPRESSION: Discogenic changes L4-5 and L5-S1 with no central or foraminal stenosis Electronically authenticated by: QUIANA TORREZ Date: 07/05/2023 08:56 Dictated By: Quiana Torrez M.D. Signed By: 07/05/23 0859 DD/ 0856 TD/TT: Biometry Teacher: LUANN HealthcareRadiology Study observation (narrative)[facility] LUMBAR SPINE WO CONOrdered By: Radiologist Radiology on 96-84-7513[facility] Work Phone: No Panel InformationOrdered By: Mavis Reyes on 09-46-8946IDZWP/Influenza Antigen (POC)[facility] 2 OR 3Von 77-78-0927AwxOd[place], [place] [address] XRay Report Signed Patient: CHRIS AN MR#: [id number] : 1985 Acct:[id number] Age/Sex: 37 / M ADM Date: 06/22/23 Loc: [facility] Attending Dr: Christiano Wilkes M.D. Ordering Physician: Christiano Wilkes M.D. Date of Service: 06/22/23 Procedure(s): XR lumbar spine 2-3V Accession Number(s): [id number] cc: Christiano Wilkes M.D. [place] [id number] Patient Name: CHRIS AN MRN: [id number] date: 1985 Sex: M Assigned Patient Location: [facility] Current Patient Location: [facility] Accession/Order Number: [id number] Exam Date: 06/22/2023 08:20 Report Date: 06/22/2023 09:06 At the request of: CHRISTIANO WILKES Procedure: XR lumbar spine 2-3V EXAMINATION: XR lumbar spine 2-3V HISTORY: Chronic Bilateral Low Back Pain With Left Sided Sciatica COMPARISON: No relevant comparison available. FINDINGS: BONES: No significant spondylosis, scoliosis, fracture, or visible bony lesion. DISC SPACES: L5-S1 mild narrowing posteriorly. PARASPINOUS: Negative. No paraspinous abnormality is seen. OTHER: Negative. XR/XR lumbar spine 2-3V IMPRESSION: 1. L5-S1 mild disc space narrowing. Consider MRI for further evaluation if symptoms persist. Electronically authenticated by: BRIAN CHAUDHRY Date: 06/22/2023 09:06 Dictated By: Brian Chaudhry M.D. Signed By: 06/22/23907 DD/ 5 TD/TT: Biometry Teacher:MARLINadiologcarlos Radiologist, - 06/22/2023 [place] [address] XRay Report Signed Patient: CHRIS AN MR#: [id number] : 1985 Acct:[id number] Age/Sex: 37 / M ADM Date: 06/22/23 Loc: RAD Attending Dr: Chritsiano Wilkes M.D. Ordering Physician: Christiano Wilkes M.D. Date of Service: 06/22/23 Procedure(s): XR lumbar spine 2-3V Accession Number(s): [id number] cc: Christiano Wilkes M.D. The [place] [address] Patient Name: CHRIS AN MRN: [id number] date: 1985 Sex: M Assigned Patient Location: [facility] Current Patient Location: [facility] Accession/Order Number: [id number] Exam Date: 06/22/2023 08:20 Report Date: 06/22/2023 09:06 At the request of: CHRISTIANO WILKES Procedure: XR lumbar spine 2-3V EXAMINATION: XR lumbar spine 2-3V HISTORY: Chronic Bilateral Low Back Pain With Left Sided Sciatica COMPARISON: No relevant comparison available. FINDINGS: BONES: No significant spondylosis, scoliosis, fracture, or visible bony lesion. DISC SPACES: L5-S1 mild narrowing posteriorly. PARASPINOUS: Negative. No paraspinous abnormality is seen. OTHER: Negative. XR/XR lumbar spine 2-3V IMPRESSION: 1. L5-S1 mild disc space narrowing. Consider MRI for further evaluation if symptoms persist. Electronically authenticated by: BRIAN CHAUDHRY Date: 06/22/2023 09:06 Dictated By: Brian Chaudhry M.D. Signed By: 06/22/23907 DD/ 5 TD/TT: Biometry Teacher: LUANN HealthcareRadiology Study observation (narrative)[facility] LUMBAR SPINE 2 OR 3VOrdered By: Radiologist Radiology on 50-30-9549[facility] Work Phone: ACID FAST SMEAR AND CXon 63-17-4277Zkpg Fast Culture NegativeSumma HealthComment on above:Result Comment: No acid fast bacilli isolated after 6 weeks.Performed By: #### DDIM #### [facility] [address] [place] [address] Dr. Dominic DunnAcid Fast SmearNegativeNoBarney Children's Medical CenterComment on above:Performed By: #### DDIM #### [facility] [address] [place] [address] Dr. Dominic Perla Specimen ProcessingConcentrationSumma Health Comment on above:Performed By: #### DDIM #### [facility] [address] [place] [address] Dr. Dominic Burkett CULTUREon 49-22-6469Oqzkuh (Mycology) CultureFinal report NormalThe [facility] Orthopedic CenterComment on above:Performed By: #### LACT #### [facility] [address] [place] [address] Dr. Dominic Johnson StainFinal reportNoBarney Children's Medical CenterComment on above:Performed By: #### LACT #### [facility] [address] [place] [address] Dr. Dominic Mao 1CommentSumma HealthComment on above:Result Comment: KRISTI/Calcofluor preparation: no fungus observed.Performed By: #### LACT #### [facility] [address] [place] [address] Dr. Dominic Mao Comment: No yeast or mold isolated after 4 weeks.CBC AUTO DIFFon 18-89-4517DEWV #0.1 103/ulNormal0.0-0.1The [facility] CenterComment on above:Performed By: #### CBC #### [facility] [address] [place] [address] Dr. Dominic DunnBasophils/100 WBC (Bld)0.7 %Normal0.2-2.0The [facility] Comment on above:Performed By: #### CBC #### [facility] [address] [place] [address] Dr. Dominic Thompson #0.0 103/ulNormal0.0-0.7The [facility] CenterComment on above: Performed By: #### CBC #### [facility] [address] [place] [address] Dr. Dominic Collinsosinophils/100 WBC (Bld)0.3 %Critically low0.9-7.0The [facility] CenterComment on above:Performed By: #### CBC #### [facility] [address] [place] [address] Dr. Dominic Mendosathrocyte distribution width (RBC) [Ratio]12.2 %Ppdste54.0-15.0 [facility] HospitalComment on above:Performed By: #### CBC #### [facility] [address] [place] [address] Dr. Dominic DunnHematocrit (Bld) [Volume fraction]40.0 %Critically low42.0-54.0 [facility] HospitalComment on above:Performed By: #### CBC #### [facility] [address] [place] [address] Dr. Dominic DunnHemoglobin (Bld) [Mass/Vol]13.6 g/dLCritically low14.0-18.0The [facility] CenterComment on above:Performed By: #### CBC #### [facility] [address] [place] [address] Dr. Dominic Aguayo #0.17 10e3/ulCritically high0.00-0.03The [facility] Comment on above:Performed By: #### CBC #### [facility] [address] [place] [address] Dr. Dominic Aguayo %2.3 %Critically high0.0-0.5The [facility] CenterComment on above:Performed By: #### CBC #### [facility] [address] [place] [address] Dr. Dominic Riggs #1.4 103/ulNormal1.2-3.8The [facility] CenterComment on above:Performed By: #### CBC #### [facility] [address] [place] [address] Dr. Dominic Dickinsonmphocytes/100 WBC (Bld)18.3 %Critically low20.5-60.0The [facility] CenterComment on above:Performed By: #### CBC #### [facility] [address] [place] [address] Dr. Dominic Pulliam DIFF REQNONormalThe [facility] CenterComment on above: Performed By: #### CBC #### [facility] [address] [place] [address] Dr. Dominic Piper (RBC) [Entitic mass]32.4 mnGxwrus69.9-34.0The [facility] CenterComment on above:Performed By: #### CBC #### [facility] [address] [place] [address] Dr. Dominic Piper (RBC) [Mass/Vol]34.0 g/dOVsudhi79.9-35.2The [facility] CenterComment on above:Performed By: #### CBC #### [facility] [address] [place] [address] Dr. Dominic Russell (RBC) [Entitic vol]95.2 fLCritically high80.0-94.0The [facility] CenterComment on above:Performed By: #### CBC #### [facility] [address] [place] [address] Dr. Dominic Walker #0.6 103/ulNormal0.3-0.8The [facility] CenterComment on above:Performed By: #### CBC #### [facility] [address] [place] [address] Dr. Dominic Henaoocytes/100 WBC (Bld)8.4 %Normal1.7-12.0The [facility] Comment on above:Performed By: #### CBC #### [facility] [address] [place] [address] Dr. Dominic Medina #5.3 103/ulNormal1.4-6.5The [facility] CenterComment on above:Performed By: #### CBC #### [facility] [address] [place] [address] Dr. Dominic Sevillautrophils/100 WBC (Bld)70.0 %Aoqtnx31.0-75.0The [facility] CenterComment on above:Performed By: #### CBC #### [facility] [address] [place] [address] Dr. Dominic DunnPlatelet mean volume (Bld) [Entitic vol]10.2 fLNormal9.5-13.5The [facility] CenterComment on above:Performed By: #### CBC #### [facility] [address] [place] [address] Dr. Dominic DunnPLT223 103/xvTndgac654-367Xki [facility] CenterComment on above: Performed By: #### CBC #### [facility] [address] [place] [address] Dr. Dominic DunnRBC4.20 106/ulCritically low4.70-6.10The [facility] CenterComment on above:Performed By: #### CBC #### [facility] [address] [place] [address] Dr. Dominic DunnWBC7.5 103/ulNormal4.0-11.0The [facility] CenterComhawthorn center on above: Performed By: #### CBC #### [facility] [address] [place] [address] Dr. Dominic DunnPROF 14(COMP METB)on 08-20-3828Gqaagvp [Mass/Vol]2.1 g/dL Critically low3.4-5.0The [facility] CenterComment on above:Performed By: #### CMREP #### [facility] [address] [place] [address] Dr. Dominic DunnAlbumin/Globulin [Mass ratio]0.8 {ratio}NormalThe [facility] CenterComment on above:Performed By: #### CMREP #### [facility] [address] [address] [address] Dominic HeatonP [Catalytic activity/Vol]51 U/SFqrghu93-333Jzt [facility] CenterComment on above:Performed By: #### CMREP #### [facility] [address] [address] [address] Dominic HeatonT [Catalytic activity/Vol]27 U/XPvgcrh71-53Qzi [facility] CenterComment on above:Performed By: #### CMREP #### [facility] [address] [address] [address] Dominic Yinon gap [Moles/Vol]8.3 mmol/LNormalThe [facility] CenterComment on above:Performed By: #### CMREP #### [facility] [address] [place] [address] Dr. Dominic DunnAST [Catalytic activity/Vol]14 U/LCritically ljq79-40Twe [facility] CenterComment on above:Performed By: #### CMREP #### [facility] [address] [place] [address] Dr. Dominic DunnBilirubin [Mass/Vol]0.4 mg/dLNormal0.2-1.0The [facility] Comment on above:Performed By: #### CMREP #### [facility] [address] [place] [address] Dr. Dominic DunnCalcium [Mass/Vol]7.5 mg/dLCritically low8.5-10.1The [facility] CenterComment on above:Performed By: #### CMREP #### [facility] [address] [place] [address] Dr. Dominic DunnChloride [Moles/Vol]108 mmol/LCritically rxmo35-748Sik [facility] CenterComment on above:Performed By: #### CMREP #### [facility] [address] [place] [address] Dr. Dominic DunnCO2 [Moles/Vol]29.2 mmol/KDyvzqc58.0-32.0The [facility] Comment on above:Performed By: #### CMREP #### [facility] [address] [address] [address] Dominic DunnCreatinine [Mass/Vol]0.87 mg/dLNormal0.70-1.30The [facility] CenterComment on above:Performed By: #### CMREP #### [facility] [address] [address] [address] Dominic CollinsGFR-AF SIERRA LEONEAN>60Normal>=60The [facility] CenterComment on above:Performed By: #### CMREP #### [facility] [address] [place] [address] Dr. Dominic CollinsGFR-NON AF SIERRA LEONEAN>60Normal>=60The [facility] CenterComment on above:Performed By: #### CMREP #### [facility] [address] [place] [address] Dr. Dominic DunnGlobulin (S) [Mass/Vol]2.7 g/dLNormalThe [facility] CenterComment on above:Performed By: #### CMREP #### [facility] [address] [place] [address] Dr. Dominic DunnGlucose [Mass/Vol]97 mg/iHTscqwy35-826EfmClinton Memorial Hospital Comment on above:Performed By: #### CMREP #### [facility] [address] [place] [address] Dr. Dominic DunnPotassium [Moles/Vol]3.5 mmol/LNormal3.5-5.1The [facility] Comment on above:Performed By: #### CMREP #### [facility] [address] [place] [address] Dr. Dominic DunnProtein [Mass/Vol]4.8 g/dLCritically low6.4-8.2The [facility] CenterComment on above:Performed By: #### CMREP #### [facility] [address] [place] [address] Dr. Dominic DunnSodium [Moles/Vol]142 mmol/CGeswhg672-984Ggy [facility] Comment on above:Performed By: #### CMREP #### [facility] [address] [place] [address] Dr. Dominic Agarwal nitrogen [Mass/Vol]13.0 mg/dLNormal7.0-18.0The [facility] HospitalComment on above:Performed By: #### CMREP #### [facility] [address] [place] [address] Dr. Dominic Agarwal nitrogen/Creatinine [Mass ratio]14.9 mg/mgNormalThe [facility] HospitalComment on above:Performed By: #### CMREP #### [facility] [address] [place] [address] Dr. Dominic Stein W MANUAL DIFFon 18-88-0512ECCHVJAV LYMPH #NormalThe [facility] HospitalComment on above:Performed By: #### LACT #### [facility] [address] [place] [address] Dr. Dominic DouglasYPICAL LYMPH %NormalThe [facility]if[facility] HospitalComment on above: Performed By: #### LACT #### [facility] [address] [place] [address] Dr. Dominic Webster #0.0 103/ulNormal0.0-0.3The [facility] HospitalComment on above:Performed By: #### LACT #### [facility] [address] [place] [address] Dr. Dominic Webster %0 %Normal0-5The [facility] HospitalComment on above:Performed By: #### LACT #### [facility] [address] [place] [address] Dr. Dominic Tubbs #0.00 103/ulNormal0.00-0.10The [facility] HospitalComment on above:Performed By: #### LACT #### [facility] [address] [place] [address] Dr. Dominic Tubbs %0.0 %Critically low0.2-2.0The [facility] HospitalComment on above:Performed By: #### LACT #### [facility] [address] [place] [address] Dr. Dominic Spears #NormalThe [facility] HospitalComment on above:Performed By: #### LACT #### [facility] [address] [address] [address] Dominic DunnBLAST %NormalThe [facility] CenterComment on above:Performed By: #### LACT #### [facility] [address] [place] [address] Dr. Dominic DunnCORRECTED WBCNormal4.0-11.0The [facility] CenterComment on above: Performed By: #### LACT #### [facility] [address] [place] [address] Dr. Dominic Aponte #0.00 103/ulNormal0.00-0.70The [facility] CenterComment on above:Performed By: #### LACT #### [facility] [address] [place] [address] Dr. Dominic Aponte%0.0 %Critically low0.9-7.0The [facility] CenterComment on above:Performed By: #### LACT #### [facility] [address] [place] [address] Dr. Dominic DunnHCT38.0 %Critically low42.0-54.0The [facility] CenterComment on above:Performed By: #### LACT #### [facility] [address] [place] [address] Dr. Dominic DunnHGB13.2 g/dlCritically low14.0-18.0The [facility] CenterComment on above:Performed By: #### LACT #### [facility] [address] [place] [address] Dr. Dominic Garcai #0.49 103/ulCritically low1.20-3.80The [facility] Comment on above:Performed By: #### LACT #### [facility] [address] [place] [address] Dr. Dominic Garcia%4.0 %Critically low20.5-60.0The [facility] CenterComment on above:Performed By: #### LACT #### [facility] [address] [place] [address] Dr. Dominic DunnMCH32.8 xvIdkpsc88.9-34.0The [facility] CenterComment on above: Performed By: #### LACT #### [facility] [address] [place] [address] Dr. Dominic PiperHC34.7 g/yaCisdmf89.9-35.2The [facility] CenterComment on above:Performed By: #### LACT #### [facility] [address] [place] [address] Dr. Dominic PiperV94.5 fLCritically high80.0-94.0The [facility] CenterComment on above:Performed By: #### LACT #### [facility] [address] [place] [address] Dr. Dominic Washington #NormalThe [facility] CenterComment on above: Performed By: #### LACT #### [facility] [address] [place] [address] Dr. Dominic ClintonOCYTE %NormalThe [facility] CenterComment on above: Performed By: #### LACT #### [facility] [address] [place] [address] Dr. Dominic Ralph#0.49 103/ulNormal0.30-0.80The [facility] CenterComment on above:Performed By: #### LACT #### [facility] [address] [place] [address] Dr. Dominic Ralph%4.0 %Normal1.7-12.0The [facility] CenterComment on above: Performed By: #### LACT #### [facility] [address] [place] [address] Dr. Dominic TaverasV10.6 fLNormal9.5-13.5The [facility] CenterComment on above: Performed By: #### LACT #### [facility] [address] [place] [address] Dr. Dominic Bingham #NormalThe [facility] CenterComhawthorn center on above:Performed By: #### LACT #### [facility] [address] [place] [address] Dr. Dominic Bingham %NormalThe [facility] CenterComment on above:Performed By: #### LACT #### [facility] [address] [address] [address] Dominic TaoBCNormalThUniversity Hospitals Health SystemComment on above:Performed By: #### LACT #### [facility] [address] [address] [address] Dominic DunnPLT194 103/qwMdimuo191-577Ydu [facility] CenterComment on above: Performed By: #### LACT #### [facility] [address] [place] [address] Dr. Dominic DunnRBC4.02 106/ulCritically low4.70-6.10The [facility] CenterComment on above:Performed By: #### LACT #### [facility] [address] [place] [address] Dr. Dominic TurkW12.2 %Zyozfc07.0-15.0The [facility] CenterComment on above: Performed By: #### LACT #### [facility] [address] [place] [address] Dr. Dominic Victoria #11.32 103/ulCritically high1.40-6.50The [facility] Comment on above:Performed By: #### LACT #### [facility] [address] [place] [address] Dr. Dominic Victoria %92.0 %Critically high43.0-75.0The [facility] CenterComment on above:Performed By: #### LACT #### [facility] [address] [place] [address] Dr. Dominic NathanBC12.3 103/ulCritically high4.0-11.0The [facility] CenterComment on above:Performed By: #### LACT #### [facility] [address] [place] [address] Dr. Dominic Thomas 14(COMP METB)on 28-16-0121Xuqncwx [Mass/Vol]2.3 g/dL Critically low3.4-5.0The [facility] CenterComment on above:Performed By: #### CMREP #### [facility] [address] [address] [address] Dominic DunnAlbumin/Globulin [Mass ratio]0.8 {ratio}NormalThe [facility] CenterComment on above:Performed By: #### CMREP #### [facility] [address] [address] [address] Dominic HeatonP [Catalytic activity/Vol]53 U/CKzfdlh92-468Bab [facility] CenterComment on above:Performed By: #### CMREP #### [facility] [address] [place] [address] Dr. Dominic HeatonT [Catalytic activity/Vol]22 U/UNtxbrj86-18Nap [facility] CenterComment on above:Performed By: #### CMREP #### [facility] [address] [place] [address] Dr. Dominic DunnAnion gap [Moles/Vol]8.2 mmol/LNormalThe [facility] CenterComment on above:Performed By: #### CMREP #### [facility] [address] [place] [address] Dr. Dominic DunnAST [Catalytic activity/Vol]18 U/DLswexk74-08Woz [facility] CenterComment on above:Performed By: #### CMREP #### [facility] [address] [place] [address] Dr. Dominic DunnBilirubin [Mass/Vol]0.4 mg/dLNormal0.2-1.0The [facility] Comment on above:Performed By: #### CMREP #### [facility] [address] [place] [address] Dr. Dominic DunnCalcium [Mass/Vol]7.5 mg/dLCritically low8.5-10.1The [facility] CenterComment on above:Performed By: #### CMREP #### [facility] [address] [place] [address] Dr. Dominic DunnChloride [Moles/Vol]107 mmol/YYxuyzz82-531Ivt [facility] Comment on above:Performed By: #### CMREP #### [facility] [address] [address] [address] Dominic DunnCO2 [Moles/Vol]29.3 mmol/CLeijqt74.0-32.0The [facility] Comment on above:Performed By: #### CMREP #### [facility] [address] [place] [address] Dr. Dominic DunnCreatinine [Mass/Vol]0.86 mg/dLNormal0.70-1.30The [facility] CenterComment on above:Performed By: #### CMREP #### [facility] [address] [place] [address] Dr. Alfaro ChangEGFR-AF SIERRA LEONEAN>60Normal>=60The [facility] CenterComment on above:Performed By: #### CMREP #### [facility] [address] [place] [address] Dr. Dominic CollinsGFR-NON AF SIERRA LEONEAN>60Normal>=60The [facility] CenterComment on above:Performed By: #### CMREP #### [facility] [address] [place] [address] Dr. Dominic DunnGlobulin (S) [Mass/Vol]2.8 g/dLNormalThe [facility] CenterComment on above:Performed By: #### CMREP #### [facility] [address] [place] [address] Dr. Dominic DunnGlucose [Mass/Vol]133 mg/dLCritically fntc60-570Ndm [facility] CenterComment on above:Performed By: #### CMREP #### [facility] [address] [place] [address] Dr. Dominic DunnPotassium [Moles/Vol]3.5 mmol/LNormal3.5-5.1The [facility] Comment on above:Performed By: #### CMREP #### [facility] [address] [place] [address] Dr. Dominic DunnProtein [Mass/Vol]5.1 g/dLCritically low6.4-8.2The [facility] CenterComment on above:Performed By: #### CMREP #### [facility] [address] [place] [address] Dr. Dominic Bledsoedium [Moles/Vol]141 mmol/CVkfmsd624-112Voz [facility] Comment on above:Performed By: #### CMREP #### [facility] [address] [place] [address] Dr. Dominic Agarwal nitrogen [Mass/Vol]11.0 mg/dLNormal7.0-18.0The [facility] CenterComment on above:Performed By: #### CMREP #### [facility] [address] [place] [address] Dr. Dominic DunnUrea nitrogen/Creatinine [Mass ratio]12.8 mg/mgNormalThe [facility] CenterComment on above:Performed By: #### CMREP #### [facility] [address] [place] [address] Dr. Dominic Stein W MANUAL DIFFon 49-34-2776CMGEGJMR LYMPH #0.13 103/ulNormal The [facility] CenterComment on above:Performed By: #### DDIM #### [facility] [address] [place] [address] Dr. Dominic DouglasYPICAL LYMPH %1 %NormalThe [facility] CenterComment on above: Performed By: #### DDIM #### [facility] [address] [place] [address] Dr. Dominic Webster #0.0 103/ulNormal0.0-0.3The [facility] CenterComment on above:Performed By: #### DDIM #### [facility] [address] [place] [address] Dr. Dominic Webster %0 %Normal0-5The [facility] CenterComment on above:Performed By: #### DDIM #### [facility] [address] [place] [address] Dr. Dominic Tubbs #0.00 103/ulNormal0.00-0.10The [facility] CenterComment on above:Performed By: #### DDIM #### [facility] [address] [place] [address] Dr. Dominic Tubbs %0.0 %Critically low0.2-2.0The [facility] CenterComment on above:Performed By: #### DDIM #### [facility] [address] [place] [address] Dr. Dominic Spears #NormalThe [facility] CenterComment on above:Performed By: #### DDIM #### [facility] [address] [address] [address] Dominic Spears %NormalThe [facility] CenterComment on above:Performed By: #### DDIM #### [facility] [address] [place] [address] Dr. Dominic DunnCORRECTED WBCNormal4.0-11.0The [facility] CenterComment on above: Performed By: #### DDIM #### [facility] [address] [place] [address] Dr. Dominic Aponte #0.00 103/ulNormal0.00-0.70The [facility] CenterComment on above:Performed By: #### DDIM #### [facility] [address] [place] [address] Dr. Dominic Aponte%0.0 %Critically low0.9-7.0The [facility] CenterComment on above:Performed By: #### DDIM #### [facility] [address] [place] [address] Dr. Dominic DunnHCT36.7 %Critically low42.0-54.0The [facility] CenterComment on above:Performed By: #### DDIM #### [facility] [address] [place] [address] Dr. Dominic DunnHGB12.7 g/dlCritically low14.0-18.0The [facility] CenterComment on above:Performed By: #### DDIM #### [facility] [address] [place] [address] Dr. Dominic Garcia #0.26 103/ulCritically low1.20-3.80The [facility] on above:Performed By: #### DDIM #### [facility] [address] [address] [address] Dominic Garcia%2.0 %Critically low20.5-60.0The [facility] CenterComment on above:Performed By: #### DDIM #### [facility] [address] [place] [address] Dr. Dominic PiperH32.6 loWnccwn11.9-34.0The [facility] CenterComment on above: Performed By: #### DDIM #### [facility] [address] [place] [address] Dr. Dominic PiperHC34.6 g/ehJlrivy98.9-35.2The [facility] CenterComment on above:Performed By: #### DDIM #### [facility] [address] [place] [address] Dr. Dominic PiperV94.3 fLCritically high80.0-94.0The [facility] CenterComment on above:Performed By: #### DDIM #### [facility] [address] [place] [address] Dr. Dominic De Los SantosAMYELOCYTE #NormalThe [facility] CenterComment on above: Performed By: #### DDIM #### [facility] [address] [place] [address] Dr. Dominic DunnMETAMYELOCYTE %NormalThe [facility] CenterComment on above: Performed By: #### DDIM #### [facility] [address] [place] [address] Dr. Dominic Ralph#0.13 103/ulCritically low0.30-0.80The [facility] Comment on above:Performed By: #### DDIM #### [facility] [address] [place] [address] Dr. Dominic Ralph%1.0 %Critically low1.7-12.0The [facility] CenterComment on above:Performed By: #### DDIM #### [facility] [address] [place] [address] Dr. Dominic TaverasV10.3 fLNormal9.5-13.5The [facility] HospitalComment on above: Performed By: #### DDIM #### [facility] [address] [address] [address] Dominic DeckerOCYTE #NormalThe [facility] CenterComment on above:Performed By: #### DDIM #### [facility] [address] [address] [address] Dominic DeckerOCYTE %NormalThe [facility] HospitalComment on above:Performed By: #### DDIM #### [facility] [address] [place] [address] Dr. Dominic TaoBCNormalThUniversity Hospitals Health SystemComment on above:Performed By: #### DDIM #### [facility] [address] [place] [address] Dr. Dominic CliffordT167 103/iyHeymxp529-683Xbn [facility] CenterComment on above: Performed By: #### DDIM #### [facility] [address] [place] [address] Dr. Dominic KaplanC3.89 106/ulCritically low4.70-6.10The [facility] CenterComment on above:Performed By: #### DDIM #### [facility] [address] [place] [address] Dr. Dominic TurkW12.4 %Oltvzk13.0-15.0The [facility] CenterComment on above: Performed By: #### DDIM #### [facility] [address] [place] [address] Dr. Dominic Victoria #12.38 103/ulCritically high1.40-6.50The [facility] on above:Performed By: #### DDIM #### [facility] [address] [place] [address] Dr. Dominic Victoria %96.0 %Critically high43.0-75.0The [facility] CenterComment on above:Performed By: #### DDIM #### [facility] [address] [place] [address] Dr. Dominic NathanBC12.9 103/ulCritically high4.0-11.0[facility] HospitalComment on above:Performed By: #### DDIM #### [facility] [address] [place] [address] Dr. Dominic DunnCUKRISHAN OTHERon 77-21-9740ICMNAQD OTHERCulture Observations: NORMAL RESPIRATORY DUSTIN.NormalThe [facility] CenterComment on above:Performed By: #### OTHCX #### [facility] [address] [place] [address] Dr. Dominic DunnCYTOLOGYon 64-54-8988AALX TO REF LAB06/30/22NoBarney Children's Medical CenterComment on above:Performed By: #### CYTO #### [facility] [address] [place] [address] Dr. Alfaro ChangECHOCARDIO M/2D COMPLETEon 16-05-6129RIVKFJYBWC M/2D COMPLETE Patient: CHRIS AN Exam Date: 06/29/2022 : 1985 Gender:M Ordering : LICO LANGSTON . Admission #: [id number] Family : Order #: [id number] CLICK HERE TO VIEW EXAM ECHOCARDIOGRAM REPORT [...] by: Derian Grijalva M.D. on 06/29/2022 at 16:36Summa HealthGRAM STAINon 82-71-4325IERTXBVWEP [facility] HospitalComment on above:Performed By: #### CMREP #### [facility] [address] [place] [address] Dr. Dominic FragosoCleveland Clinic Mercy HospitalComment on above:Performed By: #### CMREP #### [facility] [address] [address] [address] Dominic GoinsTHELIALSSumma HealthComment on above:Performed By: #### CMREP #### [facility] [address] [address] [address] Dominic DunnFUNGAL ELEMENTSSumma HealthComhawthorn center on above: Performed By: #### CMREP #### [facility] [address] [address] [address] Dominic Johnson NEG BACILLISumma HealthComment on above: Performed By: #### CMREP #### [facility] [address] [address] [address] Dominic Johnson NEG DIPPLOCOCCISumma HealthComhawthorn center on above: Performed By: #### CMREP #### [facility] [address] [address] [address] Dominic Johnson POS BACILLISumma [facility] on above: Performed By: #### CMREP #### [facility] [address] [address] [address] Dominic Johnson POSITIVE [facility]CCKettering Health Springfield on above: Performed By: #### CMREP #### [facility] [address] [address] [address] Dominic Johnson STAIN SOURCERt Lower Lobe LavageSumma Health Comment on above:Performed By: #### CMREP #### [facility] [address] [address] [address] Dominic Martinez_DIPTHSumma [facility]Com[facility] on above:Performed By: #### CMREP #### [facility] [address] [address] [address] Dominic DunnWBCMANYNRegency Hospital Cleveland East on above:Performed By: #### CMREP #### [facility] [address] [address] [address] Dominic Thomas 14(COMP METB)on 86-84-5253Jgjsewv [Mass/Vol]2.3 g/dL Critically low3.4-5.0The [facility] CenterComment on above:Performed By: #### DDIM #### [facility] [address] [place] [address] Dr. Dominic DunnAlbumin/Globulin [Mass ratio]0.8 {ratio}NormalThe [facility] CenterComment on above:Performed By: #### DDIM #### [facility] [address] [place] [address] Dr. Dominic Tony [Catalytic activity/Vol]49 U/GZofqzs44-965Sjf [facility] CenterComment on above:Performed By: #### DDIM #### [facility] [address] [place] [address] Dr. Dominic Terry [Catalytic activity/Vol]20 U/ZMklgkh30-98Xar [facility] CenterComment on above:Performed By: #### DDIM #### [facility] [address] [place] [address] Dr. Dominic Price gap [Moles/Vol]11.5 mmol/LNormalThe [facility] Comment on above:Performed By: #### DDIM #### [facility] [address] [place] [address] Dr. Dominic DunnAST [Catalytic activity/Vol]18 U/BJsavmm44-33Fuu [facility] CenterComment on above:Performed By: #### DDIM #### [facility] [address] [place] [address] Dr. Dominic DunnBilirubin [Mass/Vol]0.4 mg/dLNormal0.2-1.0The [facility] Comment on above:Performed By: #### DDIM #### [facility] [address] [place] [address] Dr. Dominic DunnCalcium [Mass/Vol]7.5 mg/dLCritically low8.5-10.1The [facility] CenterComment on above:Performed By: #### DDIM #### [facility] [address] [place] [address] Dr. Dominic DnunChloride [Moles/Vol]108 mmol/LCritically mami19-528Jgx [facility] CenterComment on above:Performed By: #### DDIM #### [facility] [address] [address] [address] Dominic DunnCO2 [Moles/Vol]26.8 mmol/DTxdxkr64.0-32.0The [facility] Comment on above:Performed By: #### DDIM #### [facility] [address] [address] [address] Dominic DunnCreatinine [Mass/Vol]0.88 mg/dLNormal0.70-1.30The [facility] CenterComment on above:Performed By: #### DDIM #### [facility] [address] [place] [address] Dr. Dominic CollinsGFR-AF SIERRA LEONEAN>60Normal>=60The [facility] CenterComment on above:Performed By: #### DDIM #### [facility] [address] [place] [address] Dr. Dominic CollinsGFR-NON AF SIERRA LEONEAN>60Normal>=60The [facility] CenterComment on above:Performed By: #### DDIM #### [facility] [address] [place] [address] Dr. Dominic DunnGlobulin (S) [Mass/Vol]2.8 g/dLNormalThe [facility] CenterComment on above:Performed By: #### DDIM #### [facility] [address] [place] [address] Dr. Dominic DunnGlucose [Mass/Vol]149 mg/dLCritically zfsi01-760Npz [facility] CenterComment on above:Performed By: #### DDIM #### [facility] [address] [address] [address] Dominic DunnPotassium [Moles/Vol]3.3 mmol/LCritically low3.5-5.1The [facility] CenterComment on above:Performed By: #### DDIM #### [facility] [address] [place] [address] Dr. Dominic DunnProtein [Mass/Vol]5.1 g/dLCritically low6.4-8.2The [facility] CenterComment on above:Performed By: #### DDIM #### [facility] [address] [place] [address] Dr. Dominic Bledsoedium [Moles/Vol]143 mmol/REetgbn935-163Vdt [facility] Comment on above:Performed By: #### DDIM #### [facility] [address] [place] [address] Dr. Dominic DunnUrea nitrogen [Mass/Vol]8.0 mg/dLNormal7.0-18.0The [facility] CenterComment on above:Performed By: #### DDIM #### [facility] [address] [place] [address] Dr. Dominic Agarwal nitrogen/Creatinine [Mass ratio]9.1 mg/mgNormalThe [facility] CenterComment on above:Performed By: #### DDIM #### [facility] [address] [place] [address] Dr. Dominic DunnVANCOMYCIN TROUGHon 26-17-8542OKDPKOMNKK TIQHOE66.9 ug/ml Critically high5.0-20.0The [facility] CenterComment on above:Performed By: #### CMREP #### [facility] [address] [place] [address] Dr. Dominic ElenaC AUTO DIFFon 03-47-1356STES #0.0 103/ulNormal0.0-0.1The [facility] CenterComment on above:Performed By: #### LACT #### [facility] [address] [place] [address] Dr. Dominic DunnBasophils/100 WBC (Bld)0.1 %Critically low0.2-2.0The [facility] CenterComment on above:Performed By: #### LACT #### [facility] [address] [place] [address] Dr. Alfaro ChangEO #0.0 103/ulNormal0.0-0.7The [facility] CenterComment on above: Performed By: #### LACT #### [facility] [address] [address] [address] Dominic Collinsosinophils/100 WBC (Bld)0.0 %Critically low0.9-7.0The [facility] on above:Performed By: #### LACT #### [facility] [address] [place] [address] Dr. Dominic Collinsrythrocyte distribution width (RBC) [Ratio]12.0 %Gypwxs77.0-15.0 [facility] HospitalComment on above:Performed By: #### LACT #### [facility] [address] [place] [address] Dr. Dominic DunnHematocrit (Bld) [Volume fraction]41.5 %Critically low42.0-54.0 [facility] on above:Performed By: #### LACT #### [facility] [address] [place] [address] Dr. Dominic DunnHemoglobin (Bld) [Mass/Vol]14.5 g/uUPirmom47.0-18.0[facility] on above:Performed By: #### LACT #### [facility] [address] [place] [address] Dr. Dominic Aguayo #0.07 10e3/ulCritically high0.00-0.03[facility] Comment on above:Performed By: #### LACT #### [facility] [address] [place] [address] Dr. Dominic Aguayo %0.5 %Normal0.0-0.5The [facility] on above: Performed By: #### LACT #### [facility] [address] [place] [address] Dr. Dominic JamesH #0.7 103/ulCritically low1.2-3.8The [facility] Comment on above:Performed By: #### LACT #### [facility] [address] [place] [address] Dr. Dominic Dickinsonmphocytes/100 WBC (Bld)4.6 %Critically low20.5-60.0The [facility] HospitalComment on above:Performed By: #### LACT #### [facility] [address] [place] [address] Dr. Dominic Pulliam DIFF REQNONormalThe [facility] CenterComment on above: Performed By: #### LACT #### [facility] [address] [place] [address] Dr. Dominic Piper (RBC) [Entitic mass]32.7 kqUyrufc63.9-34.0The [facility] HospitalComment on above:Performed By: #### LACT #### [facility] [address] [place] [address] Dr. Dominic Piper (RBC) [Mass/Vol]34.9 g/iPVwjqgq38.9-35.2The [facility] CenterComment on above:Performed By: #### LACT #### [facility] [address] [place] [address] Dr. Dominic Piper (RBC) [Entitic vol]93.7 yDVycspx64.0-94.0The [facility] CenterComment on above:Performed By: #### LACT #### [facility] [address] [place] [address] Dr. Dominic Walker #0.5 103/ulNormal0.3-0.8The [facility] CenterComment on above:Performed By: #### LACT #### [facility] [address] [place] [address] Dr. Dominic Henaoocytes/100 WBC (Bld)3.3 %Normal1.7-12.0[facility] Comment on above:Performed By: #### LACT #### [facility] [address] [place] [address] Dr. Dominic Medina #13.5 103/ulCritically high1.4-6.5ThUniversity Hospitals Health System Comment on above:Performed By: #### LACT #### [facility] [address] [place] [address] Dr. Dominic Sevillautrophils/100 WBC (Bld)91.5 %Critically high43.0-75.0The [facility] HospitalComment on above:Performed By: #### LACT #### [facility] [address] [place] [address] Dr. Dominic DunnPlatelet mean volume (Bld) [Entitic vol]10.1 fLNormal9.5-13.5The [facility] HospitalComment on above:Performed By: #### LACT #### [facility] [address] [place] [address] Dr. Dominic DunnPLT157 103/noFzuveo932-100Ika [facility] CenterComment on above: Performed By: #### LACT #### [facility] [address] [place] [address] Dr. Dominic DunnRBC4.43 106/ulCritically low4.70-6.10The [facility] CenterComment on above:Performed By: #### LACT #### [facility] [address] [place] [address] Dr. Dominic DunnWBC14.7 103/ulCritically high4.0-11.0The [facility] CenterComment on above:Performed By: #### LACT #### [facility] [address] [place] [address] Dr. Dominic Umaña BLOODon 77-05-1289Dqqkcafqstu examination of blood, cultureCulture Observations: NO GROWTH AT 5 DAYS.NormalThe [facility] HospitalComment on above:Performed By: #### LACT #### [facility] [address] [place] [address] Dr. Dominic DunnMicroscopic examination of blood, cultureCulture Observations: NO GROWTH AT 5 DAYS.NormalThe [facility] HospitalComment on above:Performed By: #### BLDCX1 #### [facility] [address] [place] [address] Dr. Dominic DunnLACTATE/LACTIC ACIDon 45-54-9311Pszrpiz [Moles/Vol]2.3 mmol/L Critically high0.4-1.9The [facility] HospitalComment on above:Performed By: #### LACT #### [facility] [address] [place], [place] [id number] Dr. Dominic Tranctate [Moles/Vol]6.1 mmol/LCritically high0.4-1.9The [facility] CenterComment on above:Performed By: #### DDIM #### [facility] [address] [place] [address] Dr. Dominic Tranctate [Moles/Vol]5.4 mmol/LCritically high0.4-1.9The [facility] CenterComment on above:Performed By: #### CMREP #### [facility] [address] [place] [address] Dr. Dominic DunnPROF 14(COMP METB)on 81-99-1198Ejgdzhz [Mass/Vol]2.7 g/dL Critically low3.4-5.0The [facility] CenterComment on above:Performed By: #### DDIM #### [facility] [address] [place] [address] Dr. Dominic DunnAlbumin/Globulin [Mass ratio]0.9 {ratio}NormalThe [facility] CenterComment on above:Performed By: #### DDIM #### [facility] [address] [place] [address] Dr. Dominic Tony [Catalytic activity/Vol]58 U/PLnwxjg89-794Suu [facility] CenterComment on above:Performed By: #### DDIM #### [facility] [address] [place] [address] Dr. Dominic Terry [Catalytic activity/Vol]20 U/UTskatr76-76Lam [facility] CenterComment on above:Performed By: #### DDIM #### [facility] [address] [place] [address] Dr. Dominic Price gap [Moles/Vol]11.8 mmol/LNormalThe [facility] on above:Performed By: #### DDIM #### [facility] [address] [place] [address] Dr. Dominic Samuels [Catalytic activity/Vol]16 U/AJzsqcs12-09Obk [facility] CenterComment on above:Performed By: #### DDIM #### [facility] [address] [address] [address] Dominic DunnBilirubin [Mass/Vol]0.5 mg/dLNormal0.2-1.0[facility] Comment on above:Performed By: #### DDIM #### [facility] [address] [address] [address] Dominic DunnCalcium [Mass/Vol]7.8 mg/dLCritically low8.5-10.1The [facility] CenterComment on above:Performed By: #### DDIM #### [facility] [address] [place] [address] Dr. Dominic DunnChloride [Moles/Vol]107 mmol/ISmcjau68-397Ukq [facility] Comment on above:Performed By: #### DDIM #### [facility] [address] [place] [address] Dr. Dominic DunnCO2 [Moles/Vol]25.7 mmol/LUiazla54.0-32.0The [facility] Comment on above:Performed By: #### DDIM #### [facility] [address] [place] [address] Dr. Dominic DunnCreatinine [Mass/Vol]0.86 mg/dLNormal0.70-1.30The [facility] CenterComment on above:Performed By: #### DDIM #### [facility] [address] [place] [address] Dr. Dominic CollinsGFR-AF SIERRA LEONEAN>60Normal>=60The [facility] CenterComment on above:Performed By: #### DDIM #### [facility] [address] [place] [address] Dr. Dominic CollinsGFR-NON AF SIERRA LEONEAN>60Normal>=60The [facility] CenterCom[facility] on above:Performed By: #### DDIM #### [facility] [address] [place] [address] Dr. Dominic DunnGlobulin (S) [Mass/Vol]3.1 g/dLNormalThe [facility] CenterComment on above:Performed By: #### DDIM #### [facility] [address] [address] [address] Dominic DunnGlucose [Mass/Vol]144 mg/dLCritically wevt68-101Lpb [facility] CenterComment on above:Performed By: #### DDIM #### [facility] [address] [address] [address] Dominic DunnPotassium [Moles/Vol]3.5 mmol/LNormal3.5-5.1The [facility] Comment on above:Performed By: #### DDIM #### [facility] [address] [address] [address] Dominic DunnProtein [Mass/Vol]5.8 g/dLCritically low6.4-8.2The [facility] CenterComment on above:Performed By: #### DDIM #### [facility] [address] [address] [address] Dominic DunnSodium [Moles/Vol]141 mmol/PErvyzy739-280Dow [facility] Comment on above:Performed By: #### DDIM #### [facility] [address] [address] [address] Dominic DunnUrea nitrogen [Mass/Vol]7.0 mg/dLNormal7.0-18.0The [facility] CenterComment on above:Performed By: #### DDIM #### [facility] [address] [address] [address] Dominic DunnUrea nitrogen/Creatinine [Mass ratio]8.1 mg/mgNormalThe [facility] CenterComment on above:Performed By: #### DDIM #### [facility] [address] [address] [address] Dominic DunnXR CHEST 2 Von [id number] CHEST 2 VEXAM: XR CHEST 2 V HISTORY: pain , [...] Electronically authenticated by: RENARD MAGAÑA Date: 2022-06-28 16:52NormMercy Health St. Anne HospitalAMYLASEon 02-66-2011Qrinnyu [Catalytic activity/Vol]49 U/L Pjhhgx48-337Uxx [facility] CenterComment on above:Performed By: #### DDIM #### [facility] [address] [place] [address] Dr. Dominic Delgadillo RAJI 3-6on 76-27-2813GA [Catalytic activity/Vol]149 U/L Tpwgni19-501Ema [facility] CenterComhawthorn center on above:Performed By: #### CMREP #### [facility] [address] [place] [address] Dr. Dominic Gallego.MB [Mass/Vol]ng/mLNormal<=3.60The [facility] on above:Performed By: #### CMREP #### [facility] [address] [place] [address] Dr. Dominic Trevino12.5 pg/mLNormal4.0-76.1The [facility] on above:Result Comment: CUT-OFF POINTS HAVE BEEN ESTABLISHED BASED ON THE FOURTH UNIVERSAL DEFINITIONS OF MYOCARDIAL INFARCTION. THE UPPER REFERENCE LIMIT (URL) OF TROPONIN, DEFINED THE 99TH PERCENTILE OF cTnI DISTRIBUTION IN A REFERENCE POPULATION, HAS BEEN CONFIRMED THE DECISION THRESHOLD FOR [place] DIAGNOSIS.Performed By: #### CMREP #### [facility] [address] [place] [address] Dr. Dominic Gallego [Catalytic activity/Vol]115 U/ALgekmn48-276Tgw [facility] on above:Performed By: #### CMREP #### [facility] [address] [place] [address] Dr. Dominic WesleyOP5.4 pg/mLNormal4.0-76.1The [facility] on above:Result Comment: CUT-OFF POINTS HAVE BEEN ESTABLISHED BASED ON THE FOURTH UNIVERSAL DEFINITIONS OF MYOCARDIAL INFARCTION. THE UPPER REFERENCE LIMIT (URL) OF TROPONIN, DEFINED THE 99TH PERCENTILE OF cTnI DISTRIBUTION IN A REFERENCE POPULATION, HAS BEEN CONFIRMED THE DECISION THRESHOLD FOR [place] DIAGNOSIS.Performed By: #### CMREP #### [facility] [address] [place] [address] Dr. Dominic ALEGRIA ADMITon 83-66-6146GB [Catalytic activity/Vol]132 U/L Reohni33-718Uek [facility] CenterComment on above:Performed By: #### DDIM #### [facility] [address] [place] [address] Dr. Dominic Gallego.MB [Mass/Vol]0.24 ng/mLNormal<=3.60The [facility] Comment on above:Performed By: #### DDIM #### [facility] [address] [place] [address] Dr. Dominic DunnHSTROP4.4 pg/mLNormal4.0-76.1The [facility] CenterComment on above:Result Comment: CUT-OFF POINTS HAVE BEEN ESTABLISHED BASED ON THE FOURTH UNIVERSAL DEFINITIONS OF MYOCARDIAL INFARCTION. THE UPPER REFERENCE LIMIT (URL) OF TROPONIN, DEFINED THE 99TH PERCENTILE OF cTnI DISTRIBUTION IN A REFERENCE POPULATION, HAS BEEN CONFIRMED THE DECISION THRESHOLD FOR [place] DIAGNOSIS.Performed By: #### DDIM #### [facility] [address] [place] [address] Dr. Doimnic WashingtonO100 ng/mLCritically oxrd16-01Thn [facility] CenterComment on above:Performed By: #### DDIM #### [facility] [address] [place] [address] Dr. Dominic Stein AUTO DIFFon 27-26-2727XBRZ #0.0 103/ulNormal0.0-0.1The [facility] CenterComment on above:Performed By: #### CMREP #### [facility] [address] [place] [address] Dr. Dominic Arizasophils/100 WBC (Bld)0.2 %Normal0.2-2.0[facility] Comment on above:Performed By: #### CMREP #### [facility] [address] [place] [address] Dr. Yilan ChangEO #0.0 103/ulNormal0.0-0.7The [facility] CenterComment on above: Performed By: #### CMREP #### [facility] [address] [place] [address] Dr. Dominic Collinsosinophils/100 WBC (Bld)0.0 %Critically low0.9-7.0The [facility] CenterComment on above:Performed By: #### CMREP #### [facility] [address] [place] [address] Dr. Dominic Collinsrythrocyte distribution width (RBC) [Ratio]11.7 %Ooqybl34.0-15.0 The [facility] CenterComment on above:Performed By: #### CMREP #### [facility] [address] [place] [address] Dr. Dominic DunnHematocrit (Bld) [Volume fraction]47.3 %Ahdbvq26.0-54.0The [facility] CenterComment on above:Performed By: #### CMREP #### [facility] [address] [place] [address] Dr. Dominic DunnHemoglobin (Bld) [Mass/Vol]16.6 g/iJSlbmds13.0-18.0The [facility] CenterComment on above:Performed By: #### CMREP #### [facility] [address] [place] [address] Dr. Dominic Aguayo #0.02 10e3/ulNormal0.00-0.03The [facility] CenterComment on above:Performed By: #### CMREP #### [facility] [address] [place] [address] Dr. Dominic Aguayo %0.2 %Normal0.0-0.5The [facility] CenterComment on above: Performed By: #### CMREP #### [facility] [address] [place] [address] Dr. Dominci Riggs #0.4 103/ulCritically low1.2-3.8The [facility] Comment on above:Performed By: #### CMREP #### [facility] [address] [place] [address] Dr. Dominic Dickinsonmphocytes/100 WBC (Bld)4.1 %Critically low20.5-60.0The [facility] CenterComment on above:Performed By: #### CMREP #### [facility] [address] [place] [address] Dr. Dominic MartinezUAL DIFF REQNONormalThe [facility] CenterComment on above: Performed By: #### CMREP #### [facility] [address] [place] [address] Dr. Dominic Piper (RBC) [Entitic mass]32.4 iiGrexfi84.9-34.0The [facility] CenterComment on above:Performed By: #### CMREP #### [facility] [address] [place] [address] Dr. Dominic Piper (RBC) [Mass/Vol]35.1 g/pEXumnwn47.9-35.2The [facility] CenterComment on above:Performed By: #### CMREP #### [facility] [address] [place] [address] Dr. Dominic Piper (RBC) [Entitic vol]92.4 xBWwexzu16.0-94.0The [facility] CenterComment on above:Performed By: #### CMREP #### [facility] [address] [place] [address] Dr. Dominic Walker #0.9 103/ulCritically high0.3-0.8ThUniversity Hospitals Health System Comment on above:Performed By: #### CMREP #### [facility] [address] [place] [address] Dr. Dominic Henaoocytes/100 WBC (Bld)8.8 %Normal1.7-12.0[facility] Comment on above:Performed By: #### CMREP #### [facility] [address] [place] [address] Dr. Dominic Medina #8.4 103/ulCritically high1.4-6.5The [facility] Comment on above:Performed By: #### CMREP #### [facility] [address] [place] [address] Dr. Dominic Sevillautrophils/100 WBC (Bld)86.7 %Critically high43.0-75.0The [facility] CenterComment on above:Performed By: #### CMREP #### [facility] [address] [place] [address] Dr. Dominic DunnPlatelet mean volume (Bld) [Entitic vol]10.1 fLNormal9.5-13.5The [facility] CenterComment on above:Performed By: #### CMREP #### [facility] [address] [place] [address] Dr. Dominic DunnPLT144 103/ulCritically qix665-230Bsg [facility] CenterComhawthorn center on above:Performed By: #### CMREP #### [facility] [address] [place] [address] Dr. Dominic DunnRBC5.12 106/ulNormal4.70-6.10The [facility] Orthopedic CenterComment on above:Performed By: #### CMREP #### [facility] [address] [place] [address] Dr. Dominic DunnWBC9.7 103/ulNormal4.0-11.0[facility] on above: Performed By: #### CMREP #### [facility] [address] [place] [address] Dr. Dominic Conklin CHEST WO W CONon 83-68-3383JEP CHEST WO W CONEXAMINATION: CTA CHEST WO W CON HISTORY: SHORTNESS [...] patent. Thyroid: Visualized portions within normal limits. Mediastinum/earle/axillae: No adenopathy. Heart/vessels: No pulmonary embolism. The [...] with narrow zone of transition without overt aggressive/destructive features. This is indeterminate but favored to relate to a nonaggressive etiology such as a benign bone island. Continued attention on follow-up as clinically warranted. Electronically authenticated by: SEGUNDO AMBRIZ Date: 2022-06-27 11:08 NormalClinton Memorial HospitalCULTURE BLOODon 69-80-5609Lwlynfntxwa examination of blood, cultureCulture Observations: NO GROWTH AT 5 DAYS.NormalThe [facility] Orthopedic CenterComment on above:Performed By: #### BLDCX2 #### [facility] [address] [place] [address] Dr. Dominic DunnMicroscopic examination of blood, cultureCulture Observations: NO GROWTH AT 5 DAYS.NormalThe [facility] Orthopedic CenterComment on above:Performed By: #### LACT #### [facility] [address] [place] [address] Dr. Dominic Stephenson-DIMERon 89-22-4679O-DIMER0.46 mg/L FEUNormal<=0.59The [facility]opedic CenterComment on above:Performed By: #### DDIM #### [facility] [address] [place] [address] Dr. Dominic Stephenson-DIMER COMMENTSSEE BELOWNoBarney Children's Medical CenterComment on above:Result Comment: Increases in D-Dimer concentration observed with thromboembolic events [...] stress, and generalized hospitalization. Performed By: #### DDIM #### [facility] [address] [place] [address] Dr. Dominic Maki URINE PROFILEon 26-54-6614Ciedflqri Ql (U)NegativeNormal NEGATIVEMercy Health Lorain Hospital on above:Performed By: #### CMREP #### [facility] [address] [place] [address] Dr. Dominic DunnClarity (U)CLEARNormalCLEARAultman Alliance Community Hospitalment on above: Performed By: #### CMREP #### [facility] [address] [place] [address] Dr. Dominic Palomareslor (U)YELLOWNormalYELLOWAultman Alliance Community Hospitalment on above: Performed By: #### CMREP #### [facility] [address] [place] [address] Dr. Dominic Underwood micrscopic examination will be performed if indicated. NormalMercy Health Lorain Hospital on above:Performed By: #### CMREP #### [facility] [address] [place] [address] Dr. Dominic DunnGlucose Ql (U)NegativeNormalNEGATIVEAultman Alliance Community Hospitalment on above:Performed By: #### CMREP #### [facility] [address] [place] [address] Dr. Dominic DunnHemoglobin Ql (U)NegativeNormalNEGATIVEMetrohealth Main Campus Medical Center on above:Performed By: #### CMREP #### [facility] [address] [place] [address] Dr. Dominic DunnKetones Ql (U)TRACEAbnormalNEGATIVEAultman Alliance Community Hospitalment on above:Performed By: #### CMREP #### [facility] [address] [place] [address] Dr. Dominic DunnLEUKOCYTESNegativeNormalNEGATIVEThe [facility] CenterComment on above:Performed By: #### CMREP #### [facility] [address] [place] [address] Dr. Dominic Paulsontrdinh Ql (U)NegativeNormalNEGATIVEThe [facility] CenterComment on above:Performed By: #### CMREP #### [facility] [address] [place] [address] Dr. Dominic DunnpH (U)6.0 [pH]Normal5-9The [facility] CenterComment on above: Performed By: #### CMREP #### [facility] [address] [place] [address] Dr. Dominic DunnSPEC GRAVITY1.310Lsrfkh2.005-<=1.025The [facility] Orthopedic CenterComment on above:Performed By: #### CMREP #### [facility] [address] [place] [address] Dr. Dominic Roque PROTEINTRACENormalNEGATIVE/ TRACEThe [facility] Orthopedic CenterComment on above:Performed By: #### CMREP #### [facility] [address] [place] [address] Dr. Dominic Coronel MICRO INDNOT INDICATEDNormalThUniversity Hospitals Health SystemComment on above:Performed By: #### CMREP #### [facility] [address] [place] [address] Dr. Dominic DunnUrobilinogen Qn (U)0.2 {Antonina'U}/dLNormal0.2 - 1.0The [facility]opedic CenterComment on above:Performed By: #### CMREP #### [facility] [address] [place] [address] Dr. Dominic DunnLACTATE/LACTIC ACIDon 73-83-9367Kuzuvdq [Moles/Vol]1.9 mmol/L Normal0.4-1.9The [facility]opedic CenterComment on above:Performed By: #### LACT #### [facility] [address] [place] [address] Dr. Dominic Tranctate [Moles/Vol]0.8 mmol/LNormal0.4-1.9The [facility] Comment on above:Performed By: #### DDIM #### [facility] [address] [place] [address] Dr. Dominic DunnLIPASEon 22-22-0653Ylokpz [Catalytic activity/Vol]42.0 U/L Critically low73.0-393.0The [facility]opedic CenterComment on above:Performed By: #### DDIM #### [facility] [address] [place] [address] Dr. Dominic DunnPROF 14(COMP METB)on 75-36-2312Tvwxsak [Mass/Vol]3.6 g/dLNormal 3.4-5.0The [facility] CenterComment on above:Performed By: #### DDIM #### [facility] [address] [place] [address] Dr. Dominic DunnAlbumin/Globulin [Mass ratio]1.0 {ratio}NormalThe [facility] Orthopedic CenterComment on above:Performed By: #### DDIM #### [facility] [address] [place] [address] Dr. Dominic Tony [Catalytic activity/Vol]71 U/XMmdyle75-489Wgs [facility] Orthopedic CenterComment on above:Performed By: #### DDIM #### [facility] [address] [place] [address] Dr. Dominic Terry [Catalytic activity/Vol]22 U/EMxyejj07-23Zog [facility] CenterComment on above:Performed By: #### DDIM #### [facility] [address] [place] [address] Dr. Dominic Price gap [Moles/Vol]12.1 mmol/LNormalThe [facility] Comment on above:Performed By: #### DDIM #### [facility] [address] [place] [address] Dr. Dominic Samuels [Catalytic activity/Vol]19 U/LRcpagh37-22Nyy [facility] CenterComment on above:Performed By: #### DDIM #### [facility] [address] [address] [address] Dominic DunnBilirubin [Mass/Vol]0.8 mg/dLNormal0.2-1.0The [facility] Comment on above:Performed By: #### DDIM #### [facility] [address] [place] [address] Dr. Dominic DunnCalcium [Mass/Vol]8.4 mg/dLCritically low8.5-10.1The [facility] CenterComment on above:Performed By: #### DDIM #### [facility] [address] [address] [address] Dominic DunnChloride [Moles/Vol]103 mmol/SZixism23-084Jau [facility] Comment on above:Performed By: #### DDIM #### [facility] [address] [place] [address] Dr. Dominic DunnCO2 [Moles/Vol]26.5 mmol/DUxxqyg16.0-32.0The [facility] Comment on above:Performed By: #### DDIM #### [facility] [address] [place] [address] Dr. Dominic DunnCreatinine [Mass/Vol]1.22 mg/dLNormal0.70-1.30The [facility] CenterComment on above:Performed By: #### DDIM #### [facility] [address] [place] [address] Dr. Dominic CollinsGFR-AF SIERRA LEONEAN>60Normal>=60The [facility] Orthopedic CenterComment on above:Performed By: #### DDIM #### [facility] [address] [place] [address] Dr. Dominic CollinsGFR-NON AF SIERRA LEONEAN>60Normal>=60The [facility] CenterComment on above:Performed By: #### DDIM #### [facility] [address] [place] [address] Dr. Dominic DunnGlobulin (S) [Mass/Vol]3.6 g/dLNormalThe [facility]opedic CenterComment on above:Performed By: #### DDIM #### [facility] [address] [address] [address] Dominic DunnGlucose [Mass/Vol]121 mg/dLCritically mqzv94-382Epk [facility] CenterComment on above:Performed By: #### DDIM #### [facility] [address] [address] [address] Dominic DunnPotassium [Moles/Vol]3.6 mmol/LNormal3.5-5.1The [facility] Comment on above:Performed By: #### DDIM #### [facility] [address] [address] [address] Dominic DunnProtein [Mass/Vol]7.2 g/dLNormal6.4-8.2The [facility] Comment on above:Performed By: #### DDIM #### [facility] [address] [address] [address] Dominic DunnSodium [Moles/Vol]138 mmol/WZmydyz021-992Ptb [facility] Comment on above:Performed By: #### DDIM #### [facility] [address] [place] [address] Dr. Dominic DunnUrea nitrogen [Mass/Vol]6.0 mg/dLCritically low7.0-18.0The [facility] CenterComment on above:Performed By: #### DDIM #### [facility] [address] [place] [address] Dr. Dominic DunnUrea nitrogen/Creatinine [Mass ratio]4.9 mg/mgNormalThe [facility] CenterComment on above:Performed By: #### DDIM #### [facility] [address] [place] [address] Dr. Dominic DunnRESPIRATORY PANEL PLUSon 44-24-0283WfxokxmgqoUqz detectedNormal NOT DETECTEDThe [facility] CenterComment on above:Performed By: #### LACT #### [facility] [address] [place] [address] Dr. Dominic DunnB. ParapertusisNot detectedNormalNOT DETECTEDThe [facility] CenterComment on above:Performed By: #### LACT #### [facility] [address] [address] [address] Dominic Cat PertussisNot detectedNormalNOT DETECTEDThe [facility] Comment on above:Performed By: #### LACT #### [facility] [address] [address] [address] Dominic DunnChlamydia PneumoniaeNot detectedNormalNOT DETECTEDThe [facility] CenterComment on above:Performed By: #### LACT #### [facility] [address] [address] [address] Dominic DunnCoronavirus 229ENot detectedNormalNOT DETECTEDThe [facility] CenterComment on above:Performed By: #### LACT #### [facility] [address] [address] [address] Dominic Thomas QGJ1Ghw detectedNormalNOT DETECTEDThe [facility] CenterComment on above:Performed By: #### LACT #### [facility] [address] [address] [address] Dominic DunnCoronavirus HI38Lnc detectedNormalNOT DETECTEDThe [facility] CenterComment on above:Performed By: #### LACT #### [facility] [address] [address] [address] Dominic Palomaresronorville AF39Bjf detectedNormalNOT DETECTEDThe [facility] CenterComment on above:Performed By: #### LACT #### [facility] [address] [address] [address] Dominic DunnInflsiobhan A H1Not detectedNormalNOT DETECTEDThe [facility] Comment on above:Performed By: #### LACT #### [facility] [address] [address] [address] Dominic Gonzalez A H1 2009Not detectedNormalNOT DETECTEDThe [facility] CenterComment on above:Performed By: #### LACT #### [facility] [address] [address] [address] Dominic Gonzalez A H3Not detectedNormalNOT DETECTEDThe [facility] Comment on above:Performed By: #### LACT #### [facility] [address] [address] [address] Dominic Gonzalez BNot detectedNormalNOT DETECTEDThe [facility] Comment on above:Performed By: #### LACT #### [facility] [address] [address] [address] Dominic De Los SantosapneumovirusDetectedAbnormalNOT DETECTEDThe [facility] Comment on above:Performed By: #### LACT #### [facility] [address] [address] [address] Dominic Trammell. PneumoniaeNot detectedNormalNOT DETECTEDThe [facility] CenterComment on above:Performed By: #### LACT #### [facility] [address] [address] [address] Dominic Olsen 1Not detectedNormalNOT DETECTEDThe [facility] CenterComment on above:Performed By: #### LACT #### [facility] [address] [address] [address] Dominic Olsen 2Not detectedNormalNOT DETECTEDThe [facility] CenterComment on above:Performed By: #### LACT #### [facility] [address] [address] [address] Dominic Olsen 3Not detectedNormalNOT DETECTEDThe [facility] CenterComhawthorn center on above:Performed By: #### LACT #### [facility] [address] [address] [address] Dominic Olsen 4Not detectedNormalNOT DETECTEDThe [facility] CenterComment on above:Performed By: #### LACT #### [facility] [address] [address] [address] Dominic DunnRhelpidio/EnterovirusNot detectedNormalNOT DETECTEDThe [facility] Orthopedic CenterComhawthorn center on above:Performed By: #### LACT #### [facility] [address] [address] [address] Dominic Mullen Header 1RESPIRATORY PANEL: VIRUSESSumma Health Comment on above:Performed By: #### LACT #### [facility] [address] [address] [address] Dominic DunnRP2 Header 2RESPIRATORY PANEL: BACTERIANoBarney Children's Medical CenterComment on above:Performed By: #### LACT #### [facility] [address] [place] [address] Dr. Dominic DunnRSVNot detectedNormalNOT DETECTEDThe [facility]opedic CenterComhawthorn center on above:Performed By: #### LACT #### [facility] [address] [address] [address] Dominic GomezRS-CoV-2 (COVID-19) RNA STONE+probe Ql (Unsp spec)Not detected NormalNOT DETECTEDThe [facility] CenterComhawthorn center on above:Performed By: #### LACT #### [facility] [address] [place] [address] Dr. Dominic DunnXR CHEST 1 Von 45-24-0598EF CHEST 1 VEXAMINATION: XR CHEST 1 V HISTORY: SHORTNESS OF [...] No acute disease. Electronically authenticated by: QUIANA TORREZ Date: 2022-06-27 07:13[facility] HospitalARS-CoV-[facility] (COVID-19) RNA STONE+probe Ql (Resp)on 11-13-2021 SARS-CoV-2 (COVID-19) RNA STONE+probe Ql (Unsp spec)PositiveNosaint francis hospital & [facility] services [place] Other Vital Signs Date TimeVital SignValuePerforming IjfkbqornWnfhpakj54-43-6195 12:37-0500Body .72 cmOhio[facility]02-20-2024 12:37-0500Body mass index (BMI) [Ratio]32.6 kg/d9YwhbbgplqOhiohealth Dublin [facility] Hospital02-20-2024 12:37-0500Body yfhfynkokww53.8 [degF][facility]02-20-2024 12:37-0500Body .52 kgOhiohealth Dublin [facility] Hospital02-20-2024 12:37-0500Heart rate82 /[facility]02-20-2024 12:37-0500Respiratory rate16 /[facility]02-20-2024 12:37-5243UxT4% (BldA) [Mass fraction]96 %[facility] 06-21-2023 15:54-0500Body ackovz490.7 cmChristiano Wilkes MD Work Phone: [facility] HospitalPoyskawwuw24-68-0553 15:54-0500Body mass index (BMI) [Ratio]32.39 kg/m2Christiano Wilkes MD Work Phone: [facility] HospitalUyhxfhkobr04-22-9832 15:54-0500Body temperature 97.81 [degF]Christiano Wilkes MD Work Phone: [facility] HospitalKrbbpuxhur81-75-6689 15:54-0500Body ihcnss44.62 kgChristiano Wilkes MD Work Phone: [facility] HospitalAredrwmupv21-10-5554 15:54-0500Diastolic blood mm[Hg]Christiano Wilkes MD Work Phone: [facility] HospitalMnhtudsmvf81-96-9596 15:54-0500Heart rate83 /min Christiano Wilkes MD Work Phone: [facility] HospitalZwsycmzoar79-75-0415 15:54-2766RhB0% (BldA) [Mass fraction]98 %Christiano Wilkes MD Work Phone: [facility] HospitalDcrviioari41-62-1700 15:54-0500Systolic blood jqptirrk590 mm[Hg]Christiano Wilkes MD Work Phone: [facility] HospitalNfxssgftwg29-78-8643 09:05-0500Body hxauae200.72 cmOhio[facility]12-09-2023 09:05-0500Body .26 kg [facility]01-02-2023 16:00-0500Body xqkmaf156.72 Regla Cano Other [employer] Other 01-02-2023 16:00-0500Body mass index (BMI) [Ratio] 29.95 kg/t8IivrujCarri Cano Other [employer] Other 01-02-2023 16:00-0500Body pooocbplrto49.7 [degF]Carri Dovemond Other [employer] Other 01-02-2023 16:00-0500Body ojyopm18.36 kgCarri Cano Other [employer] Other 01-02-2023 16:00-0500Diastolic blood bsthfmyr10 mm[Hg] Carri Rachael Other [employer] Other 01-02-2023 16:00-0500Respiratory rate18 /minCarri Cano Other [employer] Other 01-02-2023 16:00-8525CpL6% (BldA) [Mass fraction]100 % Carri Dovemond Other [employer] Other 01-02-2023 16:00-0500Systolic blood zqqtaien853 mm[Hg] Carri Rachael Other [employer] Other 07-08-2022 10:15-0400Body szgzne315.72 Sergio Stone Other [employer] Other 07-08-2022 10:15-0400Body mass index (BMI) [Ratio] 30.41 kg/l9XclrwPeyton Stone Other [employer] Other 07-08-2022 10:15-0400Body bhmylktqjne547.7 [degF]Peytonkatlyn Stone Other [employer] Other 07-08-2022 10:15-0400Body .72 kgPeggcarlos Stone Other [employer] Other 07-08-2022 10:15-5197IfK6% (BldA) [Mass fraction]97 % Peytonkatlyn Stone Other [employer] Other 09-28-2021 15:45-0400Body .72 cmSmarshall Wheatley Other [employer] Other 09-28-2021 15:45-0400Body mass index (BMI) [Ratio] 30.41 kg/t9RaygbinhmCharmaine Wheatley Other [employer] Other 09-28-2021 15:45-0400Body cmemzmipnlp42.9 [degF] Charmaine Wheatley Other [employer] Other 09-28-2021 15:45-0400Body zmmtuv83.72 kgStroyal Wheatley Other [employer] Other 09-28-2021 15:45-9875TxA9% (BldA) [Mass fraction]96 % Charmaine Wheatley Other [employer] Other Encounters Encounter DateEncounter TypeCare ProviderFacilityStart: 12-28-2024 End: 13-36-7846sxvqsxiriqQSAL J TRAVISProMedica Kaiser Foundation Hospitaltart: 09-28-2024 End: 92-73-8379jhanbxkwciLYCK J [facility]ISMer[facility] Community Hospitaltart: 08-10-2024 End: 83-75-0391hcxpycqnsaXSHH J [facility]OS[facility]ITALISMer[facility] County Community Hospitaltart: 06-29-2024 End: 06-29-4418athvzfjfqmCUUM J [facility]ISMet[facility] HospitalStart: 05-22-2024 End: 66-73-0402wvhwdxvuzdLIXC J [facility]ISMet[facility] HospitalStart: 07-05-2023 End: 33-30-9489Ccmocpksa Result EncounterChristiano Wilkes MD Work Phone: noms External Department UnsolicitedStart: 07-05-2023 End: 26-39-2442Pmttiwdit Result EncounterChristiano Wilkes MD Work Phone: noms External Department UnsolicitedStart: 06-28-2023 End: 44-96-2746chkfjiotaoOjuonswbbMercy Memorial Hospital Work Phone: Start: 06-28-2023 End: 87-81-4379Upftxll encounter [facility] Work Phone: Start: 06-22-2023 End: 75-10-6239Qwadecvei Result EncounterChristiano Wilkes MD Work Phone: noms External Department UnsolicitedStart: 06-22-2023 End: 63-32-6173Ojhzlmbpo Result EncounterChristiano Wilkes MD Work Phone: noms External Department UnsolicitedStart: 06-21-2023 End: 80-12-3788ydflndfcfjZZEX NADERERNot AvailableStart: 06-21-2023 End: 61-56-2175Pzwyvj outpatient visit 15 minutesChristiano Wilkes MD Work Phone: noms [facility] FMComment on above:Chronic bilateral low back pain with left-sided sciatica (Primary Dx)Start: 27-32-1389Kivkwu flowsheetChristiano Wilkes MD Work Phone: noms [facility] FMStart: 91-36-5386Bpmgoi flowsPolina Wilkes MD Work Phone: noms [facility] FMStart: 04-16-2023 End: 53-39-2155Xtatfxh encounter procedureFirelands Physician [facility] Work Phone: Start: 08-12-2022 End: 10-92-0937npjriqpxfbWymf AsaadFacility:[facility] Start: 07-20-2022 End: 49-23-6838istvceaqyeKhin Asaad Other [employer] Other Start: 14-84-0352Emsfpimme encounterImad AsaadFPG Referral CoordinatorStart: 06-28-2022 End: 60-14-6221Kqqthefvhm and management of Kevin MANLEY .Facility: Start: 05-10-2022 End: 90-36-5648hbigkdcyydUacvat Dymond Other [employer] Other Start: 77-79-4756Fdekhu outpatient visit 15 minutes Carri DymondFPG Urgent Care ClydeStart: 11-13-2021 End: 80-46-2397dcnhescnnnIadhk Stone Other [employer] Other Start: 48-14-7901Qeimck outpatient visit 15 minutes Peyton HartFPG Urgent Care ClydeStart: 76-39-8292Bacbrb outpatient visit 15 minutesStephanie BreaultFPG [facility] Procedures DateProcedureProcedure DetailPerforming ClinicianStart: 27-11-2647JU LUMBAR SPINE WO Cathi Wilkes MD Work Phone: Start: 52-00-9423LLUDE/Influenza Antigen (POC)Start: 05-90-9679HF LUMBAR SPINE 2 OR 3VMarc Dorothy DENIS Work Phone: Start: 28-58-9651Lcvpgjou of Right Lower Lung Lobe, Via Natural or Artificial Opening Endoscopic, DiagnosticNATHAN SAMSA . Plan of Treatment DateCare ActivityDetailAuthorStart: 24-17-7003Cmczphyny vaccinationInfluenza Vaccine (#1)[facility] HealthcareStart: 06-21-2023 End: 84-05-7546VH Lumbar spine 2 or 3 ViewsXR lumbar spine 2 or 3 views Imaging Routine Chronic bilateral low back pain with left-sided sciatica Expected: 06/21/2023, Expires: 06/21/2024[facility] Work Phone: Comment on above:Expected: 06/21/2023, Expires: 06/21/2024Start: 05-21-8055Lpinqcfku vaccinationInfluenza Vaccine (#1)[facility] Immunizations Immunization DateImmunizationNotesCare DygewlxmLejypdlt28-90-2592sfqcsty toxoid, reduced diphtheria toxoid, and acellular pertussis vaccine, adsorbedStroyal Wheatley Other [facility] Payers DatePayer CategoryPayerPolicy [id number] Health [id number] [employer] [id number] 2023-Present [address] [place] [id number]-[id number] Health InsuranceCIGNA [id number] Health [id number] [id number] 2.16.840.1.434119.3.57[id number] 2.16.840.1.166957.3.57[id number] 2.16.840.1.720892.3.57[id number] 2..840.1.195385.3.57[id number] 2..840.1.550987.3.57[id number] 2..840.1.445366.3.57[id number] 2.840.1.412326.3.57[id number] 2..840.1.474066.19 [id number] 2..[id number] 2.840.1.935386.3.579.2.531 Social History DateTypeDetailFacilityUnknown if ever smokedNosaint francis hospital & health services [place] Other Start: 99-11-1111Eum Assigned At BirthNosaint francis hospital & health services [place] Other Tobacco smoking status NHISTobacco smoking consumption unknownLONE PEAK HOSPITAL HealthcareStart: 90-08-5917Chx Assigned At BirthNot on fileLONE PEAK HOSPITAL HealthcareStart: 09-07-2017 End: 55-88-3798Uobcplm smoking status NHISNever smoked tobaccoNOHI Healthcare Start: 89-18-6484Qrsdhrm use and exposureSmokeless tobacco non-userNOMS HealthcareStart: 32-44-9065Huvdijr of Social functionNOMS HealthcareStart: 60-82-3907Cqt Assigned At [facility] Hospitaltart: [id number] Healthcare History of Present illness Narrative 06-21-2023 Note Date & [id number] History of Present illness Narrative* Christiano Wilkes MD - 06/21/2023 4:13 PM ESTAssociated Problem(s): Chronic bilateral low back pain with left-sided sciatica Severe pain and injury years ago. Check x-ray. Start prednisone for inflammation and use zanaflex PRN. Use heat or massage PRN. Recommend home PT exercises and if no improvement will need MRI. * Christiano Wilkes MD - 06/21/2023 3:45 PM EST Subjective Patient ID: Chris An is a 37 y.o. male who presents for Back Pain. C/o low back pain since 06/19. 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 Sudden onset severe pain and dropped [...] imaging. Patient has had about 3 flares overpast few years that lasted few days to [...] 2 or 3 views documented in this encounterLONE [facility]AK [facility] Healthcare Evaluation note 05-10-2022 Note Date & [id number] Evaluation note* Encounter Date Diagnosis Assessment Notes Treatment Notes Treatment Clinical Notes May, Acute sinusitis, rec urrence not specified, unspecified location (ICD-10 - J01.90) Sinusitis home care material was printed Drink plenty fluids, get plenty of rest. Take the amoxicillin with clavulanate and prednisone as prescribed until gone. Take Tylenol or Motrin for aches pains or fevers. Follow-up with your family physician if no improvement in 2 to 3 days. [employer] Other Evaluation note 11-13-2021 Note Date & [id number] Evaluation note* Encounter Date Diagnosis Assessment Notes Treatment Notes Treatment Clinical Notes Nov, Fever (ICD-10 - R50.9) Nov,OVID-19 (ICD-10 - U07.1)COVID testing is positive. Recommended patient initiate self [...] new or worsening symptoms after 1 week. [employer] Other Evaluation note 02-03-2021 Note Date & [id number] Evaluation note* Encounter Date Diagnosis Assessment Notes Treatment Notes Treatment Clinical Notes Jan, Bronchitis (ICD-10 - J40) Ear infections are often a secondary infection caused from an URI, the flu or allergies. Take medication as directed. Complete all doses, even if you feel better. Tylenol or ibuprofen can help with pain. Warm pack to area for comfort helps as well. Follow up with primary care provider if no improvement of symptoms. Jan,ilateral acute otitis media (ICD-10 - H66.93) Ear infections are often a secondary infection caused from an URI, the flu or allergies. Take medication as directed. Complete all doses, even if you feel better. Tylenol or ibuprofen can help with pain. Warm pack to area for comfort helps as well. Follow up with primary care provider if no improvement of symptoms. [employer] Other History general Narrative - Reported 02-07-2016 Note Date & [id number] History general Narrative - Reported* Type Description Date Medical History Depression Medical HistoryInsomnia, unspecifiedMedical HistoryAnxiety/Panic Attacks Hospitalization HistoryAnxiety, Depression, SI -- Dsouwtelj34/2016 [employer] Other Evaluation note Note Date & TypeNoteFacilityEvaluation noteNo InformationNort [place] Other Evaluation note Note Date & TypeNoteFacilityEvaluation note* Diagnosis Chronic bilateral low back pain with left-sided sciatica- Primary documented in this encounter [facility] Evaluation note Note Date & TypeNoteFacilityEvaluation note* Diagnosis Onset Date Resolution Status Acute non-recurrent maxillary sinusitis acuteContact with or exposure to other viral diseasesacute [facility] Work Phone: Summary Purpose Family History Relationship Condition Age at Onset Recorded Date/T adán family member Presence of cardiac pacemaker Unknown Advance Directives Advance Directive Response Recorded Date/ Time Advance Directives No May 09, 2017 1:36am Chief Complaint and Reason for Visit Chief Complaint Congestion, Cough CongestionReason for VisitAcute non-recurrent maxillary sinusitis Contact with or exposure to other viral diseases Additional Source Comments REASON FOR VISIT (unrecogniz ed section and content) ReasonCommentsBack Pain (unrecognized sect ion and content) No Status Records FoundNo Status Records FoundNo Status Records FoundNo Status Records Found INFORMATION SOURCE (unrecogn ized section and content) DATE CREATED AUTHOR 08/15/2022 [facility] DATE CREATED AUTHOR AUTHOR'S ORGANIZ ATION 08/18/2022 [facility] DATE CREATED AUTHOR AUTHOR'S ORGANIZ ATION 06/23/2023 [facility] DATE CREATED AUTHOR AUTHOR'S ORGANIZ ATION 12/30/2024 [facility] Care Teams (unrecognized sec tion and content) Team MemberRelationshipSpecialtyStart DateEnd Date Christiano Wilkes MD [address] [place] [id number] [facility]06/21/23Team MemberRelationshipSpecialtyStart DateEnd Date Christiano Wilkes MD [address] [place] [id number] [facility]06/21/23 Team Status: Active Member Role Status Dates PHYSICIAN NO FAMILY Primary Care Provider Active Team Status: Inactive Member Role Status Dates YESIKA Mitchell Attending Provider Active S tart: April 16, 2023 End: April 16, 2023 Team Status: Inactive Member Role Status Dates PHYSICIAN NO FAMILY Primary Care Provider Active Start: June 28, 2023 End: June 28Mulu Lincoln ProviderActiveStart: June 28, 2023 End: June 28, 2023Team MemberRelationshipSpecialtyStart DateEnd Date Christiano Wilkes MD PCP - GeneralF[facility]vly Medicine06/21/23 Goals (unrecognized section and content) Goals may [...] BE BASED ON THE PRIMARY CLINICAL RECORDS. [employer] provides no warranty or guarantee of the accuracy or completeness of information in this document.
== END 2025-05-06 11:28 | disposition home or self-care (01) ==
PROVIDERS: Emergency Provider Emergency Medicine
DX: J10.1 Influenza due to other identified influenza virus with other respiratory manifestations (principal); Z87.01 Personal history of pneumonia (recurrent)
CPT/HCPCS: 71045; 87804; 87811; 99283